=== PATIENT | female | born 1965 | race Caucasian/White ===

== ENCOUNTER 2025-05-17 16:00 | Inpatient (IN) | payer MEDICAID, SELFPAY ==
[2025-05-17] VITALS (12 sets, daily range): BP systolic 120–151; BP diastolic 90–102; PULSE 88–110; RESP 12–40; TEMP 36.2–38.6; O2SAT 80–98; BMI 26.5
--- NOTE | 2025-05-17 16:08 | PD.EDSOB ---
ED SOB =RME/HPI General Chief Complaint: Shortness of Breath/Dyspnea Stated Complaint: SOB Time Seen by Provider: 05/17/25 16:07 Arrival date/time: 05/17/25 16:00 RME / HPI RME / HPI Narrative: See [facility] for Dr. Gibson's HPI documentation. Related Data Home Medications ?Medication ?Instructions ?Recorded ?Confirmed aspirin 81 mg capsule 81 mg PO PRN 05/17/25 05/17/25 Previous Rx's ?Medication ?Instructions ?Recorded Cyclobenzaprine * (FLEXERIL *) 10 mg PO Q8HR PRN spasm #20 tabs 09/02/15 Hydrocodone/Acetaminophen * (NORCO 1 tab PO Q4H PRN pain #20 tabs 09/02/15 5/325 *) ibuprofen 600 mg tablet 600 mg PO Q6HR PRN PAIN #40 tabs 09/02/15 albuterol sulfate 90 mcg/actuation 2 puff inhalation QID PRN 02/10/21 aerosol inhaler shortness of breath or wheezing #8.5 grams fluticasone 100 mcg-salmeterol 50 1 inh inhalation BID #60 ea 02/10/21 mcg/dose blistr powdr for inhalation (Advair Diskus) Allergies Allergy/AdvReac Type Severity Reaction Status Date / Time codeine AdvReac Intermediate NAUSEATED Verified 02/10/21 10:22 NKA Allergy Uncoded 05/19/25 11:12 Review of Systems Review of Systems Systems Reviewed: All systems reviewed, normal except as documented Past Medical History Past Medical History NEUROLOGIC: Negative Neurological Disorders CARDIAC: Positive Hypertension; Negative Congestive Heart Failure RESPIRATORY: Positive Respiratory Disorders, Chronic Obstructive Pulmonary Disease (COPD), Asthma and Bronchitis GASTROINTESTINAL: Negative Gastrointestinal Disorders GENITOURINARY: Negative Renal Disease MUSCULOSKELETAL: Negative Musculoskeletal Disorders ENDOCRINE: Negative Diabetes Mellitus Type 1 or Diabetes Mellitus Type 2 PSYCHO/SOCIAL: Positive Recreational Drug Use Social History SMOKING STATUS: Heavy (> 1 pack/day) ED Exam Narrative Physical exam: See [facility] for Dr. Gibson's physical exam documentation. Course Course Course Narrative: CXR is ordered for determining the etiology of shortness of breath. Quality Measures none Orders Category Date Time Status Admit to Inpatient Status Routine Admission 05/17/25 17:39 Active Patient Condition Routine Admission 05/17/25 17:39 Ordered Bedside COVID-19 Antigen Test NOW Care 05/17/25 16:08 Completed Bedside Influenza A&B Antigen Test NOW Care 05/17/25 16:08 Completed COVID-19 Screening Questionnaire NOW Care 05/17/25 17:08 Completed Decision to Admit X1 Care 05/17/25 17:08 Completed EKG (ED ONLY) *Do not use* NOW Care 05/17/25 16:10 Completed Notify provider NEEDED Care 05/17/25 17:39 Active Saline [Insert IV] NOW Care 05/17/25 16:09 Active Straight [In and Out Catheter] X1 Care 05/17/25 16:09 Completed Referral Respiratory Therapy Stat Cons 05/17/25 16:09 Active EKG (ED Only) Stat Exams 05/17/25 16:10 Draft EKG (ED Only) Stat Exams 05/17/25 16:10 Draft XR chest 1V portable Stat Exams 05/17/25 16:10 Completed ABG [Arterial Blood Gas] Stat Lab 05/17/25 18:19 Completed BNP [B-Type Natriuretic Peptide] Stat Lab 05/17/25 16:12 Completed Bilirubin,Direct Stat Lab 05/17/25 16:12 Completed Blood Culture (Lab) Stat Lab 05/17/25 16:18 Results CBC Stat Lab 05/17/25 16:12 Completed CMP [Comprehensive Metabolic Panel] Stat Lab 05/17/25 16:12 Completed CRP [C-Reactive Protein] Stat Lab 05/17/25 16:12 Completed D-Dimer Stat Lab 05/17/25 16:12 Completed Drug Screen,Urine Routine Lab 05/17/25 17:15 Completed ESR [Sed Rate (ESR)] Stat Lab 05/17/25 16:12 Completed Hemoglobin A1C [Glycohemoglobin w (eAG)] Stat Lab 05/17/25 16:12 Completed Lactate (Lactic Acid) Stat Lab 05/17/25 16:12 Completed Magnesium Stat Lab 05/17/25 16:12 Completed Procalcitonin Stat Lab 05/17/25 16:12 Completed TSH [Thyroid Stimulating Hormone] Stat Lab 05/17/25 16:12 Completed Troponin I Stat Lab 05/17/25 16:12 Completed UA, C/S IF [Urinalysis, C/S if Indicated] Stat Lab 05/17/25 17:17 Completed DiphenhydrAMINE INJ [Benadryl Inj] Med 05/17/25 16:55 Discontinued 50 mg IVP X1 STA Levalbuterol Rt [Xopenex Rt Breanna] Med 05/17/25 17:30 Discontinued 10 mg INH X1 ONE Levalbuterol Rt [Xopenex Rt Breanna] Med 05/17/25 17:31 Discontinued 7.5 mg INH X1 ONE MethylPREDNISolone.* [SoluMEDROL Inj] Med 05/17/25 16:09 Discontinued 250 mg IVP X1 ONE Sodium Chloride Rt Breanna 0.9% [NS Rt Breanna 0.9%] Med 05/17/25 16:09 Discontinued 3 ml INH PRN PRN Sodium Chloride Rt Breanna 0.9% [NS Rt Breanna 0.9%] Med 05/17/25 17:31 Active 3 ml INH PRN PRN Code Status Routine Oth 05/17/25 17:39 Completed BiPAP / CPAP NOW RT 05/17/25 16:09 Active Vital Signs Vital signs: Vital Signs Temperature 100.3 F 05/17/25 16:28 Pulse Rate 110 H 05/17/25 16:28 Respiratory Rate 39 H 05/17/25 16:28 Blood Pressure 151/101 H 05/17/25 16:28 Pulse Oximetry (%) 93 L 05/17/25 16:28 Oxygen Delivery Method BiPAP 05/17/25 16:28 Shortness of Breath / Dyspnea MDM Narrative MDM Narrative:: This section includes all my notes and documentations, including HPI, PE, and ED course. Ralph Gibson MD HPI: 60-year-old female here with several days of worsening cough, productive cough, purulent sputum, and dyspnea. Was diagnosed with COPD. Continues to smoke. No oxygen or nebulizer at home. No other complaints. ROS: All negative except as documented in HPI. Physical Exam: General: Alert and oriented. In respiratory distress. Eyes: Conjunctivae and lids clear. ENT: No nasal congestion. Neck: Supple. Heart: Tachycardia with regular rhythm. Lungs: In respiratory distress. Severely decreased air movement with diffuse wheezing. Abdomen: Soft and nontender. Skin: Warm and dry. Neuro: Alert and oriented X 3. I reviewed all diagnostic test results: My interpretation of the EKG is: Sinus tachycardia (107 bpm) with nonspecific ST-T changes. My interpretation of the chest x-ray is NAD. Blood tests and urine tests remarkable for positive UDS for methamphetamine. ABG showed pH 7.39, pCO2 49, pHCO3 29. Covid/Influenza negative. At this point, diagnoses include: Acute respiratory failure with hypoxia and hypercapnia COPD exacerbation Methamphetamine use Treatment here included: Benadryl 50 mg IV Solu-Medrol 250 mg IV Xopenex neb treatments No significant improvement noted. I discussed the case with our hospitalist. About the presentation and exam and diagnostics and treatments here. And need of further care in the hospital. Will accept the patient. Ralph Gibson MD Patient data External records reviewed:: [facility] previous records (Per chart review, patient was seen here on 02/10/21 for COPD.) and EMS form Clinical information provided by:: patient Social determinants that could affect healthcare access:: none Patient has the following chronic illnesses:: COPD, asthma, HTN How is presenting disease/condition affected by chronic disease/condition?: exacerbated by Evaluation data The following diagnostics were reviewed and interpreted by me:: lab results, radiology exam(s) and EKG tracing(s) (My interpretation of the EKG is: Sinus tachycardia (107 bpm) with nonspecific ST-T changes. Ralph Gibson MD) Lab and/or radiology exams considered but not ordered:: none Interpretation Summary: I reviewed all diagnostic test results: My interpretation of the EKG is: Sinus tachycardia (107 bpm) with nonspecific ST-T changes. My interpretation of the chest x-ray is NAD. Blood tests and urine tests remarkable for positive UDS for methamphetamine. ABG showed pH 7.39, pCO2 49, pHCO3 29. Covid/Influenza negative. Medications / Prescriptions Medications or Prescriptions considered but not ordered:: none Medication administrations:: Medication Administration History Acetaminophen (Acetaminophen 325 Mg Tablet) 650 mg PO Q6H PRN PRN Reason: Fever >100 Stop: 06/16/25 17:59 Last Admin: 05/17/25 18:55 Dose: 650 mg Documented By: DARON Acetaminophen (Acetaminophen 325 Mg Tablet) 650 mg PO Q6H PRN PRN Reason: PAIN SCALE 1-3 (mild Stop: 06/16/25 17:59 Hydrocodone Bitart/Acetaminophen (Hydrocodone/Apap 5/325 Tablet) 1 tab PO Q4HR PRN PRN Reason: PAIN SCALE 4-6 (Moderate Stop: 05/22/25 17:59 Albuterol/Ipratropium (Albuterol/Ipratropium (Duoneb) Rt Breanna 3 Ml Nebu) 3 ml INH Q4HRRT ANNA Stop: 06/16/25 18:59 Last Admin: 05/19/25 23:16 Dose: 3 ml Documented By: Admin: 05/19/25 18:59 Dose: 3 ml Documented By: Admin: 05/19/25 14:06 Dose: 3 ml Documented By: Admin: 05/19/25 10:35 Dose: 3 ml Documented By: Admin: 05/19/25 06:30 Dose: 3 ml Documented By: Admin: 05/19/25 02:52 Dose: 3 ml Documented By: Admin: 05/18/25 22:46 Dose: 3 ml Documented By: Admin: 05/18/25 19:10 Dose: 3 ml Documented By: Admin: 05/18/25 15:16 Dose: 3 ml Documented By: Admin: 05/18/25 10:15 Dose: 3 ml Documented By: Admin: 05/18/25 06:50 Dose: 3 ml Documented By: Admin: 05/18/25 03:24 Dose: 3 ml Documented By: Admin: 05/17/25 22:23 Dose: 3 ml Documented By: Admin: 05/17/25 19:40 Dose: 3 ml Documented By: ALMAS Albuterol/Ipratropium (Albuterol/Ipratropium (Duoneb) Rt Breanna 3 Ml Nebu) 3 ml INH Q2HR PRN PRN Reason: SHORTNESS OF BREATH OR WHEEZE Stop: 06/16/25 18:12 Last Admin: 05/18/25 19:10 Dose: 3 ml Documented By: AMLAS Comments: computers down, scanner not working Atorvastatin Calcium (Atorvastatin Calcium 20 Mg Tablet) 40 mg PO HS ANNA Stop: 06/17/25 20:59 Last Admin: 05/19/25 22:40 Dose: Not Given Documented By: CP Non-Admin Reason: NPO Admin: 05/18/25 20:12 Dose: Not Given Documented By: CP Non-Admin Reason: NPO Dextrose (Dextrose 50%-Water Inj 50 Ml Syringe) 25 ml IV Q15MIN PRN PRN Reason: BG 50-70 responsive npo pt Stop: 06/17/25 12:50 Dextrose (Dextrose 50%-Water Inj 50 Ml Syringe) 50 ml IV Q15MIN PRN PRN Reason: BG <50 OR BG <70 & pt unresponsive Stop: 06/17/25 12:50 Gabapentin (Gabapentin 300 Mg Capsule) 300 mg PO TID ANNA Stop: 06/18/25 10:54 Last Admin: 05/19/25 22:40 Dose: Not Given Documented By: JAVAD Non-Admin Reason: NPO Admin: 05/19/25 11:12 Dose: 300 mg Documented By: JEMAL Glucagon (Glucagon Inj 1 Mg Vial) 1 mg IM Q15MIN PRN PRN Reason: BG <70, and no IV access Guaifenesin (Guaifenesin Syrup 200 Mg/10 Ml Udc) 100 mg PO BID [facility]; Protocol Stop: 06/16/25 20:59 Last Admin: 05/19/25 22:40 Dose: Not Given Documented By: JAVAD Non-Admin Reason: NPO Admin: 05/19/25 09:18 Dose: Not Given Documented By: JEMAL Non-Admin Reason: NPO Admin: 05/18/25 20:12 Dose: Not Given Documented By: JAVAD Non-Admin Reason: NPO Admin: 05/18/25 08:10 Dose: Not Given Documented By: RADHA Non-Admin Reason: Patient Refused Admin: 05/17/25 22:28 Dose: Not Given Documented By: CP Non-Admin Reason: Patient Refused Heparin Sodium (Porcine) (Heparin Sod Inj 5000 Unit/Ml Vial) 5,000 unit SC Q12HR ANNA Stop: 05/31/25 18:14 Last Admin: 05/19/25 22:39 Dose: 5,000 unit Documented By: JAVAD Co-signed By: VERO Admin: 05/19/25 09:18 Dose: 5,000 unit Documented By: JEMAL Co-signed By: MANUEL Admin: 05/18/25 20:00 Dose: 5,000 unit Documented By: JAVAD Co-signed By: NILE Admin: 05/18/25 08:09 Dose: 5,000 unit Documented By: RADHA Co-signed By: [email or web address] Admin: 05/17/25 18:56 Dose: 5,000 unit Documented By: FC Co-signed By: TM Azithromycin 500 mg/ Sodium (Chloride) 250 mls @ 250 mls/hr IV X1 ONE Stop: 05/20/25 09:59 Insulin Human Lispro (Insulin Lispro (Admelog) 1 Unit/0.01 Ml Unit) 0 unit SC Q6HR [facility]; Protocol Stop: 06/18/25 17:59 Last Admin: 05/19/25 18:26 Dose: Not Given Documented By: JEMAL Non-Admin Reason: Per Protocol Lorazepam (Lorazepam 2 Mg/Ml Vial) 1 mg IVP Q8HR PRN PRN Reason: ANXIETY Stop: 05/24/25 07:35 Methylprednisolone Sodium Succinate (Methylprednisolone Sod Succ 40 Mg/Ml Vial) 40 mg IVP TID [facility] Stop: 05/26/25 13:59 Last Admin: 05/19/25 22:39 Dose: 40 mg Documented By: Admin: 05/19/25 14:38 Dose: 40 mg Documented By: JEMAL Nicotine (Nicotine Patch 21 Mg/24 Hr Patch.Td24) 21 mg TOP QDAY [facility] Stop: 06/16/25 17:44 Last Admin: 05/19/25 09:18 Dose: 21 mg Documented By: Admin: 05/18/25 08:09 Dose: 21 mg Documented By: Admin: 05/17/25 18:56 Dose: 21 mg Documented By: DARON Ondansetron HCl (Ondansetron Inj 2 Mg/Ml Inj 2 Ml) 4 mg IVP Q6H PRN; Protocol PRN Reason: NAUSEA OR VOMITING Stop: 06/16/25 17:59 Pantoprazole Sodium (Pantoprazole Inj 40 Mg Vial) 40 mg IVP QDAY [facility] Stop: 06/17/25 08:59 Last Admin: 05/19/25 09:16 Dose: 40 mg Documented By: Admin: 05/18/25 08:09 Dose: 40 mg Documented By: RADHA Sodium Chloride (Sodium Chloride Rt Breanna 0.9% 3 Ml Nebu) 3 ml INH PRN PRN PRN Reason: SOLN Stop: 06/16/25 17:30 Last Admin: 05/17/25 17:59 Dose: 3 ml Documented By: [email or web address] Discontinued Medications Albuterol (Albuterol Rt 2.5 Mg/3 Ml Nebu) 10 mg INH X1 ONE Stop: 05/19/25 10:57 Last Admin: 05/19/25 11:39 Dose: 10 mg Documented By: BRITTNY Azithromycin (Azithromycin 250 Mg Tablet) 500 mg PO QDAY ANNA Stop: 05/19/25 09:01 Last Admin: 05/18/25 08:09 Dose: 500 mg Documented By: Admin: 05/17/25 18:55 Dose: 500 mg Documented By: DARON Olanzapine 10 mg/ Sterile (Water 2.1 ml) 0 mg IM QDAY ONE Stop: 05/18/25 21:05 Last Admin: 05/18/25 21:15 Dose: 1 dose Documented By: JAVAD Diphenhydramine HCl (Diphenhydramine Inj 50 Mg/Ml Vial) 50 mg IVP X1 STA Stop: 05/17/25 16:56 Last Admin: 05/17/25 17:05 Dose: 50 mg Documented By: DARON Fluticasone Propionate (Fluticasone [place] 0.05% 16 Gm Btl) 1 spray NASAL X1 ONE Stop: 05/18/25 19:36 Haloperidol Lactate (Haloperidol Lact Inj 5 Mg/Ml Vial) 1 mg IV X1 ONE Stop: 05/19/25 08:34 Last Admin: 05/19/25 09:10 Dose: 1 mg Documented By: JEMAL Hydroxyzine HCl (Hydroxyzine Inj 25 Mg/Ml Vial) 50 mg IM X1 ONE Stop: 05/18/25 19:36 Last Admin: 05/18/25 20:11 Dose: Not Given Documented By: JAVAD Non-Admin Reason: Medication Not Available Comments: aware and new orders received. Ceftriaxone Sodium/Dextrose (Rocephin/D5w 1gm Iv Premix) 1 gm in 50 mls @ 100 mls/hr IV QDAY ANNA Stop: 05/25/25 11:47 Last Admin: 05/18/25 11:53 Dose: Not Given Documented By: RADHA Non-Admin Reason: Discontinued Ceftriaxone Sodium/Dextrose (Rocephin/D5w 1gm Iv Premix) 1 gm in 50 mls @ 100 mls/hr IV QDAY ANNA Stop: 05/25/25 11:49 Last Admin: 05/19/25 09:18 Dose: 100 mls/hr Documented By: Infusion: 05/18/25 13:01 Dose: Infused Documented By: Admin: 05/18/25 12:31 Dose: 100 mls/hr Documented By: RADHA Magnesium Sulfate (Magnesium Sulfate Ivpb) 2 gm in 50 mls @ 120 mls/hr IV X1 ONE Stop: 05/18/25 17:49 Last Admin: 05/18/25 17:45 Dose: 120 mls/hr Documented By: RADHA Azithromycin 500 mg/ Sodium (Chloride) 250 mls @ 250 mls/hr IV X1 ONE Stop: 05/19/25 09:11 Last Admin: 05/19/25 10:27 Dose: 250 mls/hr Documented By: JEMAL Cefepime HCl 2 gm/ Sodium (Chloride) 50 mls @ 100 mls/hr IV Q8HR [facility] Stop: 05/26/25 11:04 Last Admin: 05/19/25 11:20 Dose: 100 mls/hr Documented By: JEMAL Magnesium Sulfate (Magnesium Sulfate Ivpb) 2 gm in 50 mls @ 25 mls/hr IV X1 ONE Stop: 05/19/25 13:01 Last Admin: 05/19/25 11:46 Dose: 25 mls/hr Documented By: JEMAL Vancomycin HCl 1,500 mg/ (Sodium Chloride) 500 mls @ 200 mls/hr IV X1 ONE Stop: 05/19/25 13:59 Last Admin: 05/19/25 12:27 Dose: 200 mls/hr Documented By: JEMAL Magnesium Sulfate/Dextrose (Magnesium Sulfate Ivpb) 1 gm in 100 mls @ 300 mls/hr IV X1 ONE Stop: 05/19/25 15:04 Last Admin: 05/19/25 14:55 Dose: 300 mls/hr Documented By: JEMAL Insulin Human Lispro (Insulin Lispro (Admelog) 1 Unit/0.01 Ml Unit) 0 unit SC AC [facility]; Protocol Stop: 06/17/25 16:59 Last Admin: 05/19/25 17:09 Dose: Not Given Documented By: JOSIES Non-Admin Reason: Per Protocol Admin: 05/19/25 11:53 Dose: Not Given Documented By: JOSIES Non-Admin Reason: Per Protocol Admin: 05/19/25 07:53 Dose: Not Given Documented By: JOSIES Non-Admin Reason: Per Protocol Admin: 05/18/25 17:16 Dose: Not Given Documented By: RADHA Non-Admin Reason: Per Protocol Ipratropium [place] (Ipratropium Rt 0.5 Mg/ 2.5 Ml Nebu) 1.5 mg INH X1 ONE Stop: 05/17/25 17:42 Last Admin: 05/17/25 17:58 Dose: 1.5 mg Documented By: ALMAS Ipratropium Pinnacle (Ipratropium Rt 0.5 Mg/ 2.5 Ml Nebu) 1.5 mg INH X1 ONE Stop: 05/18/25 16:13 Levalbuterol HCl (Levalbuterol Rt 1.25 Mg/0.5 Ml Nebu) 10 mg INH X1 ONE Stop: 05/17/25 17:31 Last Admin: 05/17/25 17:49 Dose: Not Given Documented By: DARON Non-Admin Reason: Discontinued Levalbuterol HCl (Levalbuterol Rt 1.25 Mg/0.5 Ml Nebu) 7.5 mg INH X1 ONE Stop: 05/17/25 17:32 Last Admin: 05/17/25 17:49 Dose: Not Given Documented By: DARON Non-Admin Reason: Discontinued Lorazepam (Lorazepam 2 Mg/Ml Vial) 0.5 mg IVP X1 ONE Stop: 05/18/25 19:51 Last Admin: 05/18/25 19:56 Dose: 0.5 mg Documented By: JAVAD Lorazepam (Lorazepam 2 Mg/Ml Vial) 1 mg IVP X1 ONE Stop: 05/18/25 21:05 Last Admin: 05/18/25 21:15 Dose: 1 mg Documented By: JAVAD Lorazepam (Lorazepam 2 Mg/Ml Vial) 0.5 mg IVP X1 ONE Stop: 05/19/25 02:20 Last Admin: 05/19/25 02:28 Dose: 0.5 mg Documented By: JAVAD Lorazepam (Lorazepam 2 Mg/Ml Vial) 0.5 mg IVP Q8HR PRN PRN Reason: ANXIETY Stop: 05/24/25 07:35 Last Admin: 05/19/25 07:44 Dose: 0.5 mg Documented By: JEMAL Lorazepam (Lorazepam 2 Mg/Ml Vial) 1 mg IVP X1 ONE Stop: 05/19/25 10:54 Last Admin: 05/19/25 11:12 Dose: 1 mg Documented By: JEMAL Methylprednisolone Sodium Succinate (Methylprednisolone Sod Succ 62.5 Mg/Ml 2ml Vial) 250 mg IVP X1 ONE Stop: 05/17/25 16:10 Last Admin: 05/17/25 17:05 Dose: 250 mg Documented By: DARON Methylprednisolone Sodium Succinate (Methylprednisolone Sod Succ 40 Mg/Ml Vial) 40 mg IVP QDAY [facility] Stop: 05/22/25 08:59 Last Admin: 05/18/25 08:08 Dose: 40 mg Documented By: RADHA Methylprednisolone Sodium Succinate (Methylprednisolone Sod Succ 40 Mg/Ml Vial) 40 mg IVP BID [facility] Stop: 05/25/25 16:29 Last Admin: 05/19/25 09:17 Dose: 40 mg Documented By: Admin: 05/18/25 20:00 Dose: 40 mg Documented By: Admin: 05/18/25 17:17 Dose: 40 mg Documented By: RADHA Pharmacy Consult (Vancomycin Pharmacy To Dose 1 Each Each) 1 each IV QDAY [facility] Stop: 06/18/25 10:59 Last Admin: 05/19/25 12:27 Dose: 1 each Documented By: JEMAL Fluticasone/Salmeterol (Fluticasone/Salmeterol 100/50 14 Dose Inh) 1 puff INH BIDRT [facility] Stop: 06/16/25 18:59 Last Admin: 05/18/25 19:12 Dose: 1 puff Documented By: Admin: 05/18/25 06:49 Dose: 1 puff Documented By: Admin: 05/17/25 19:38 Dose: 1 puff Documented By: ALMAS Comments: 100/50 Sodium Chloride (Sodium Chloride Rt Breanna 0.9% 3 Ml Nebu) 3 ml INH PRN PRN PRN Reason: SOLN Stop: 06/16/25 16:08 Sodium Chloride (Sodium Chloride Rt 10% 15 Ml Nebu) 5 ml INH X1 ONE Stop: 05/17/25 19:25 Sodium Chloride (Sodium Chloride Rt 10% 15 Ml Nebu) 5 ml INH X1 ONE Stop: 05/19/25 08:15 Last Admin: 05/19/25 11:32 Dose: Not Given Documented By: BRITTNY Non-Admin Reason: Change of Condition Comments: pt on bipap unable to induce Treatment here FROM ME included: Benadryl 50 mg IV Solu-Medrol 250 mg IV Xopenex neb treatments Consultations Consultation(s) initiated? (list below): Yes Consultation #1 (Physician, Specialty, Details): I discussed the case with our hospitalist. About the presentation and exam and diagnostics and treatments here. And need of further care in the hospital. Will accept the patient. Diagnosis Shortness of Breath Differential Diagnosis: acute exacerbation of chronic obstructive airways disease, congestive heart failure, community acquired pneumonia, asthma with exacerbation and pulmonary embolism Most likely diagnosis given after review of the tests above:: Acute respiratory failure with hypoxia COPD exacerbation Methamphetamine use Admission Indicated Admission indicated?: indicated Explain why admission is indicated or not indicated:: Acute respiratory failure with hypoxia COPD exacerbation Admission Request Was there a request for admission?: Yes Admission Attestation Admission request attestation: Discussed case with Hospitalist service regarding admission. Discussed patients ED course, exam findings, labs, and radiology results. Agreed to accept the patient for admission. Disposition Plan Disposition Plan: Admit Discharge Plan Plan Patient Disposition: Admit Acute Care w/in Hospital Problem List Clinical Impression: Acute respiratory failure with hypoxia, COPD exacerbation
--- NOTE | 2025-05-17 16:10 | EKG_ITS ---
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
--- NOTE | 2025-05-17 16:10 | XR_ITS ---
EXAMINATION: AP chest single view TECHNIQUE: AP portable upright chest single view Date and time: May 17, 2025, 1611 hours INDICATION: Shortness of breath today. FINDINGS: Normal heart size Left cardiac apex fat pad No interval pneumonia or pulmonary edema Moderate osteopenia IMPRESSION: No interval pneumonia or pulmonary edema
--- NOTE | 2025-05-17 16:10 | EKG_ITS ---
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
[2025-05-17 16:26] LABS: Lactate (Lactic Acid) 1.5 mMol/L (0.4-2.0)
[2025-05-17 16:29] LABS: Basophils # (Auto) 0.1 Thou/mm3 (0.0-0.2); Basophils % (Auto) 1 % (0-2.5); Eosinophils # (Auto) 0.0 Thou/mm3 (0.0-0.5); Eosinophils % (Auto) 0 % (0-10); Hematocrit 49.8 % (36.0-46.0); Hemoglobin 15.8 g/dL (12.0-16.0); Immature Granulocytes Auto 0.02 Thou/mm3 (0.00-0.00); Lymphocytes # (Auto) 0.8 Thou/mm3 (1.0-4.8); Lymphocytes % (Auto) 10 % (10-50); Mean Corpuscular HGB Conc 31.7 g/dl (31.0-37.0); Mean Corpuscular Hemoglobin 26.6 pg (25.0-35.0); Mean Corpuscular Volume 84 fL (80-100); Monocytes # (Auto) 1.1 Thou/mm3 (0.0-0.8); Monocytes % (Auto) 14 % (0-12); Neutrophils # (Auto) 5.7 Thou/mm3 (1.8-7.7); Neutrophils % (Auto) 74 % (37-80); Nucleated Red Blood Cell # 0.00 Thou/mm3 (0.00-0.00); Nucleated Red Blood Cell % 0 /100 WBC (0); Platelet Count 280 Thou/mm3 (140-440); RDW Standard Deviation 39.9 fL (36.4-46.3); Red Blood Count 5.95 Miln/mm3 (4.00-5.20); White Blood Count 7.7 Thou/mm3 (3.6-11.0)
[2025-05-17 16:41] LABS: Sed Rate (ESR) 29 mm/hr (0-30)
[2025-05-17 16:57] LABS: Alanine Aminotransferase 56 U/L (10-49); Albumin, Serum 4.7 gm/dL (3.4-4.8); Albumin/Globulin Ratio 1.9 (1.2-2.2); Alkaline Phosphatase 98 U/L (46-116); Anion Gap 7 (7-16); Aspartate Amino Transferase 40 U/L (0-34); BUN/Creatinine Ratio 9 Ratio (12-20); Bilirubin,Direct 0.1 mg/dL (0.0-0.3); Bilirubin,Total 0.4 mg/dL (0.3-1.2); Blood Urea Nitrogen 7 mg/dL (9-23); C-Reactive Protein 4.7 mg/dL (0.0-0.9); Calcium 8.9 mg/dL (8.3-10.6); Calcium (Corrected) 8.9 mg/dL (8.5-10.1); Carbon Dioxide 29.2 mMol/L (20.0-31.0); Chloride 104 mMol/L (98-107); Creatinine (Component) 0.8 mg/dL (0.6-1.3); Estimated Creatinine Clearance 65.7 mL/min (>60); Globulin 2.5 gm/dL (2.3-3.5); Glucose 158 mg/dL (74-106); Glucose Estimated Average 131 mg/dL (80-131); Hemoglobin A1C 6.2 % Hgb (4.8-6.0); Magnesium 2.4 mg/dL (1.6-2.6); Osmolality,Calculated 280 (275-295); Potassium 4.0 mMol/L (3.4-5.1); Procalcitonin 0.24 ng/ml (0.0-0.49); Sodium 140 mMol/L (136-145); Thyroid Stimulating Hormone 4.77 uIU/mL (0.55-4.78); Total Protein 7.2 gm/dL (5.7-8.2); Troponin I < 0.020 ng/mL (0.0-0.045); eGFR > 60 See Note
[2025-05-17 17:00] LABS: D-Dimer 277 ng/mL (<600)
[2025-05-17] MEDS: MethylPREDNISolone SOD SUCC 62.5 MG/ML 2ML VIAL 250 MG IVP (17:05)
[2025-05-17 17:20] LABS: B-Type Natriuretic Peptide 46 pg/mL (0-100)
[2025-05-17 17:29] LABS: Collection Type, Urine Clean Catch
[2025-05-17 17:45] LABS: Bilirubin,Urine Negative (Negative); Blood,Urine Negative (Negative); Clarity,Urine Clear (Clear/Hazy); Color,Urine Yellow (Lt Yel-Yel); Culture Indicated,Urine Not Indicated; Glucose, Urine Negative (Negative); Ketones,Urine Negative (Negative); Leukocyte Esterase,Urine Negative (Negative); Nitrite,Urine Negative (Negative); PH,Urine 5.5 (5.0-7.0); Protein,Urine 1+ (Neg - Trace); RBC,Urine 1 /hpf (0-3); Specific Gravity,Urine 1.033 (1.001-1.035); Squamous Epithelial Cell,Urine 2 /hpf (0-5); Urobilinogen,Urine 3.0 mg/dL (0.0-1.0); WBC,Urine 1 /hpf (0-5)
[2025-05-17] MEDS: IPRATROPIUM RT 0.5 MG/ 2.5 ML NEBU 1.5 MG INH (17:58)
[2025-05-17] MEDS: SODIUM CHLORIDE RT SOL 0.9% 3 ML NEBU INH (17:59)
[2025-05-17 18:03] LABS: Amphetamine/Methamp Scrn,U Positive (Negative); Barbiturate Screen,Urine Negative (Negative); Benzodiazepines Screen,Urine Negative (Negative); Benzoylecgonine Screen, Ur Negative (Negative); Fentanyl Screen,Urine Negative (Negative); Opiate Screen,Urine Negative (Negative); THC Screen,Urine Negative (Negative)
--- NOTE | 2025-05-17 18:15 | ESHP_ITS ---
<Statement entered by Jhonny Anderson MD - 05/17/25 19:30> I saw and examined patient personally and supervised PGY 1 resident, Dr. Buckley with formulating a management plan. I agree with the documentation with the exceptions as listed below. 60-year-old female with PMHx of COPD, chronic bronchitis, active smoker 1ppd for >40y, methamphetamine use presented to the ED for evaluation of worsening cough and SOB for two days. Admitted for COPD exacerbation Problem list: 1. Acute resp failure with hypoxia secondary to COPD exacerbation 2. Transaminitis 3. History of methamphetamine use 4. Chronic nicotine dependence Patient presented today with worsening shortness of breath for the past few days. She attributes this to her dogs and smoking. Also her family recently visited her all of whom exhibited flulike symptoms. En route to the hospital patient received 2 g magnesium sulfate in the ambulance. Currently patient is on DuoNebs and BiPAP. Pending ABG results. Also placed nicotine patch for chronic nicotine dependence. Plan of care discussed with Attending Dr. Edna Anderson MD PGY 2 Disclaimer: This note was dictated by speech recognition. Minor errors in database software technician may be present due to voice recognition software. Documentation for date of: 05/17/25 HPI History of Present Illness History of present illness: HPI: 60-year-old female with PMHx of COPD, chronic bronchitis, active smoker 1ppd for >40y, methamphetamine use presented to the ED for evaluation of worsening cough and SOB for two days. Patient currently using BiPAP, and history is obtained from son at bedside primarily. He states that his mother earned the cough from her granddaughter when visiting his family two days ago. The cough is productive of yellow/green sputum and is much worse at night. Admits to HOGUE, and fevers, while denies chest pain, palpitations, N/V/D. Patient has exertional dyspnea at baseline and can walk short distances. However, with the onset of recurrent respiratory distress, she has been unable to ambulate herself to the point of urinary incontinence. ED Course: At arrival, VSS BP 151/101, HR 110, RR 39, T1 100.3, O2 93% on BiPAP 30%. Labs showed Hgb 15.8, WBC 7.7, bicarb 29.2, AG 7, BUN 7, CR 0.8, glucose 158, Hgb A1c 6.2, AST 40, ALT 56, CRP 4.7, BNP 46, Pro-Paul 0.24, TSH 4.77 UA negative. UDS positive for amphetamines. CXR no interval pneumonia or pulmonary edema. EKG sinus tachycardia In the ED, patient received diphenhydramine IVP 50 mg, methylprednisolone IVP 250 mg x 1, Ipratroprium 1.5mg x1 Meds: pending med reconcilation Allergy: None PMHx: [see HPI above]. PSHx: [none] Fam Hx: [non-contributory] Soc Hx: Patient has smoked for more than 1PPD for >40 years. [Denies drinking alcohol]. Admits to using methamphetamine daily Exam Vital Signs Temp Pulse Resp BP Pulse Ox O2 Del Method FiO2 101.5 F H 105 H 26 H 149/102 H 98 BiPAP 30 05/17/25 18:04 05/17/25 18:04 05/17/25 18:04 05/17/25 18:04 05/17/25 18:04 05/17/25 16:28 05/17/25 18:00 Narrative Exam General: Alert and oriented x3, No apparent distress. Skin: Intact, Warm, no rashes. HEENT: Normocephalic, Atraumatic. Normal neck range of motion, Supple. Trachea midline. Respiratory: Bronchial breath sounds b/l. Breath sounds are equal bilaterally with good, symmetric chest expansion. Cardiovascular: tachycardia, regular rhythm. normal S1, S2, No murmurs. Distal pulses 2+ Abdomen: Abdomen non-distended, without erythema, or lesions. Normotensive bowel sounds x4. Percussion tympanic. Palpation soft, nontender in all four quadrants. No organomagely. Absent rigidity, guarding, or rebound. Musculoskeletal/Extremities: No erythema, swelling, tenderness of any joints. No edema of BLE. DP pulses +2/3 b/l. Full active ROM of all four extremities. Neurologic: NEURO: Oriented x3, cranial nerves II to XII grossly intact. Muscle strength 5/5 on UE and LE b/l, Moves extremities x4. Sensation intact to gross touch along C6-T1 and L2-S1 dermatomes. No focal neurologic deficits noted Psych: Thoughts linear and responses appropriate. Results: Labs 05/18/25 04:48 05/18/25 04:48 Labs: Short CBC 05/17/25 Range/Units 16:12 WBC 7.7 (3.6-11.0) Thou/mm3 Hgb 15.8 (12.0-16.0) g/dL Hct 49.8 H (36.0-46.0) % Plt Count 280 (140-440) Thou/mm3 BMP 05/17/25 16:12 Sodium 140 Potassium 4.0 Chloride 104 Carbon Dioxide 29.2 BUN 7 L Creatinine 0.8 Glucose 158 H Calcium 8.9 Cardiac Enzymes 05/17/25 Range/Units 16:12 Troponin I < 0.020 (0.0-0.045) ng/mL Liver Function 05/17/25 Range/Units 16:12 Total Bilirubin 0.4 (0.3-1.2) mg/dL Direct Bilirubin 0.1 (0.0-0.3) mg/dL AST 40 H (0-34) U/L ALT 56 H (10-49) U/L Alkaline Phosphatase 98 (46-116) U/L Albumin 4.7 (3.4-4.8) gm/dL Urine 05/17/25 Range/Units 17:17 Urine Color Yellow (Lt Yel-Yel) Urine Clarity Clear (Clear/Hazy) Urine pH 5.5 (5.0-7.0) Ur Specific [place] 1.033 (1.001-1.035) Urine Protein 1+ A (Neg - Trace) Urine Glucose (UA) Negative (Negative) Quality Measures Quality Measures VTE prophylaxis Medications Home Medications and Allergies Home Medications ?Medication ?Instructions ?Recorded ?Confirmed ?Type aspirin 81 mg capsule 81 mg PO PRN 05/17/25 History Allergies Allergy/AdvReac Type Severity Reaction Status Date / Time codeine AdvReac Intermediate NAUSEATED Verified 02/10/21 10:22 Visit Medications Acetaminophen (Acetaminophen 325 Mg Tablet) 650 mg PO Q6H PRN PRN Reason: Fever >100 Stop: 06/16/25 17:59 Acetaminophen (Acetaminophen 325 Mg Tablet) 650 mg PO Q6H PRN PRN Reason: PAIN SCALE 1-3 (mild Stop: 06/16/25 17:59 Hydrocodone Bitart/Acetaminophen (Hydrocodone/Apap 5/325 Tablet) 1 tab PO Q4HR PRN PRN Reason: PAIN SCALE 4-6 (Moderate Stop: 05/22/25 17:59 Heparin Sodium (Porcine) (Heparin Sod Inj 5000 Unit/Ml Vial) 5,000 unit SC Q12HR [facility] Stop: 05/31/25 18:14 Nicotine (Nicotine Patch 21 Mg/24 Hr Patch.Td24) 21 mg TOP QDAY [facility] Stop: 06/16/25 17:44 Ondansetron HCl (Ondansetron Inj 2 Mg/Ml Inj 2 Ml) 4 mg IVP Q6H PRN; Protocol PRN Reason: NAUSEA OR VOMITING Stop: 06/16/25 17:59 Fluticasone/Salmeterol (Fluticasone/Salmeterol 100/50 14 Dose Inh) 1 puff INH BIDRT [facility] Stop: 06/16/25 18:59 Sodium Chloride (Sodium Chloride Rt [place] 0.9% 3 Ml Nebu) 3 ml INH PRN PRN PRN Reason: SOLN Stop: 06/16/25 16:08 Sodium Chloride (Sodium Chloride Rt [place] 0.9% 3 Ml Nebu) 3 ml INH PRN PRN PRN Reason: SOLN Stop: 06/16/25 17:30 Last Admin: 05/17/25 17:59 Dose: 3 ml Discontinued Medications Diphenhydramine HCl (Diphenhydramine Inj 50 Mg/Ml Vial) 50 mg IVP X1 STA Stop: 05/17/25 16:56 Last Admin: 05/17/25 17:05 Dose: 50 mg Ipratropium [place] (Ipratropium Rt 0.5 Mg/ 2.5 Ml Nebu) 1.5 mg INH X1 ONE Stop: 05/17/25 17:42 Last Admin: 05/17/25 17:58 Dose: 1.5 mg Levalbuterol HCl (Levalbuterol Rt 1.25 Mg/0.5 Ml Nebu) 10 mg INH X1 ONE Stop: 05/17/25 17:31 Last Admin: 05/17/25 17:49 Dose: Not Given Levalbuterol HCl (Levalbuterol Rt 1.25 Mg/0.5 Ml Nebu) 7.5 mg INH X1 ONE Stop: 05/17/25 17:32 Last Admin: 05/17/25 17:49 Dose: Not Given Methylprednisolone Sodium Succinate (Methylprednisolone Sod Succ 62.5 Mg/Ml 2ml Vial) 250 mg IVP X1 ONE Stop: 05/17/25 16:10 Last Admin: 05/17/25 17:05 Dose: 250 mg Assessment & Plan Plan 60-year-old female with PMHx of COPD, chronic bronchitis, active smoker 1ppd for >40y, methamphetamine use presented to the ED for evaluation of worsening cough and SOB for two days. Admitted for COPD exacerbation #Acute Hypoxic Respiratory Failure #COPD exacerbation Patient presented with 2d hx of worsening cough and SOB. Also admits to greenish phlegm with coughing worse at nights. In ED, patient received methylprednisolone 250mg x1, ipratropium 1.5mg inh, ABG: pH 7.39, pCO2 49, pO2 149, bicarb 29, O2 sat 100% CXR: no interval pneumonia or pulmonary edema EKG: sinus tachycardia Plan: - Duonebs Q4h scheduled, plus Q2h PRN SOB - Methylprednisolone 125mg x1, followed by 40mg QD +Pantoprazole IV 40mg QD for PPx GI ulcer 2/2 steroids - Guaifenecin PO 100mg bid, ordered without dextromethorphan to sustain tussive reflex beneficial for airway clearance. - Azithromycin 500mg for three days (05/17-) - Bedside COVID-19 and flu tests ordered - MRSA nasal screen ordered - Sputum ctx and Gram stain ordered - Chest physiotherapy daily - Continuous pulse oximetry - Oxygen delivery [4L] via NC PRN, titrate to maintain O2 sat >88% - Admitted to Telemetry #Transaminitis -CTM LFT's #Prediabetes Hgb A1c 6.2 -CTM AM glc #Substance Use Disorder #Chronic Smoker Patient reports to have smoked 1 PPD >40y. Also reports daily methamphetamine use. Plan: -Nicotine patch 21mg -Counseling for cessation smoking and drug use -Referral to social science research assistant Health Maintenance: Disposition: Telemetry Diet: Regular PPx DVT: Heparin SC 5000u BID PPx GI: Pantoprazole IV 40mg Qday Code Status: Routine This case was discussed with my attending physician, Dr. Bishop, and senior resident, Dr Anderson. Even though this this note was carefully revised there may still be minor errors in database software technician due to voice recognition software. Amrit Buckley, PGY I Attending Provider Attestation/Addendum I have seen and examined the patient. I was physically present for the vega portions of the services provided including history, physical exam, diagnosis, treatment plans and orders. I agree with assessment and plan of care as documented by residents. After examination of the patient and review of the clinical data I feel that this patient needs admission to the hospital for further treatment/evaluation. Even though this this note was carefully revised there may still be minor errors in database software technician due to voice recognition software. Angie Bishop MD
[2025-05-17 18:26] LABS: Allen Test Performed/OK; Base Excess 3 (-3-3); HCO3 29 mEq/L (20-26); Inspired Oxygen, FIO2 21 %; O2 Saturation 100 % (91-98); PCO2 49 mmHg (32.0-48.0); PO2 149 mmHg (83-108); Puncture Site Right Radial; pH, Arterial 7.39 (7.35-7.45)
[2025-05-17 18:52] LABS: Troponin I < 0.020 ng/mL (0.0-0.045)
[2025-05-17] MEDS: ACETAMINOPHEN 325 MG TABLET 650 MG PO (18:55)
[2025-05-17] MEDS: AZITHROMYCIN 250 MG TABLET 500 MG PO (18:55)
[2025-05-17] MEDS: HEPARIN SOD INJ 5000 UNIT/ML VIAL SC (18:56)
[2025-05-17] MEDS: NICOTINE PATCH 21 MG/24 HR PATCH.TD24 TOP (18:56)
[2025-05-17] MEDS: FLUTICASONE/SALMETEROL 100/50 14 DOSE INH 1 PUFF INH (19:38)
[2025-05-17] MEDS: ALBUTEROL/IPRATROPIUM (Duoneb) RT SOL 3 ML NEBU INH ×2 (19:40→22:23)
[2025-05-18] VITALS (17 sets, daily range): BP systolic 110–163; BP diastolic 61–119; PULSE 81–116; RESP 12–37; TEMP 35.6–36.5; O2SAT 88–100; BMI 30.2
[2025-05-18] MEDS: ALBUTEROL/IPRATROPIUM (Duoneb) RT SOL 3 ML NEBU INH ×7 (03:24→22:46)
[2025-05-18 06:11] LABS: Basophils # (Auto) 0.0 Thou/mm3 (0.0-0.2); Basophils % (Auto) 0 % (0-2.5); Eosinophils # (Auto) 0.0 Thou/mm3 (0.0-0.5); Eosinophils % (Auto) 0 % (0-10); Hematocrit 50.4 % (36.0-46.0); Hemoglobin 15.7 g/dL (12.0-16.0); Immature Granulocytes Auto 0.03 Thou/mm3 (0.00-0.00); Lymphocytes # (Auto) 0.5 Thou/mm3 (1.0-4.8); Lymphocytes % (Auto) 6 % (10-50); Mean Corpuscular HGB Conc 31.2 g/dl (31.0-37.0); Mean Corpuscular Hemoglobin 26.7 pg (25.0-35.0); Mean Corpuscular Volume 86 fL (80-100); Monocytes # (Auto) 0.3 Thou/mm3 (0.0-0.8); Monocytes % (Auto) 4 % (0-12); Neutrophils # (Auto) 7.2 Thou/mm3 (1.8-7.7); Neutrophils % (Auto) 90 % (37-80); Nucleated Red Blood Cell # 0.00 Thou/mm3 (0.00-0.00); Nucleated Red Blood Cell % 0 /100 WBC (0); Platelet Count 256 Thou/mm3 (140-440); RDW Standard Deviation 41.7 fL (36.4-46.3); Red Blood Count 5.88 Miln/mm3 (4.00-5.20); White Blood Count 8.0 Thou/mm3 (3.6-11.0)
[2025-05-18] MEDS: FLUTICASONE/SALMETEROL 100/50 14 DOSE INH 1 PUFF INH ×2 (06:49→19:12)
[2025-05-18 08:02] LABS: Alanine Aminotransferase 60 U/L (10-49); Albumin, Serum 5.1 gm/dL (3.4-4.8); Albumin/Globulin Ratio 1.9 (1.2-2.2); Alkaline Phosphatase 101 U/L (46-116); Anion Gap 13 (7-16); Aspartate Amino Transferase 37 U/L (0-34); BUN/Creatinine Ratio 12 Ratio (12-20); Bilirubin,Total 0.3 mg/dL (0.3-1.2); Blood Urea Nitrogen 11 mg/dL (9-23); Calcium 9.5 mg/dL (8.3-10.6); Calcium (Corrected) 9.5 mg/dL (8.5-10.1); Carbon Dioxide 27.7 mMol/L (20.0-31.0); Cardiac Risk Estimate 7.2 RATIO (3.7-5.6); Chloride 101 mMol/L (98-107); Cholesterol 252 mg/dL (132-200); Creatinine (Component) 0.9 mg/dL (0.6-1.3); Estimated Creatinine Clearance 62.3 mL/min (>60); Globulin 2.7 gm/dL (2.3-3.5); Glucose 196 mg/dL (74-106); HDL Cholesterol 35 mg/dL (40-60); LDL Cholesterol,Calculated 187 mg/dL (0-130); Magnesium 2.3 mg/dL (1.6-2.6); Osmolality,Calculated 287 (275-295); Phosphorous 4.0 mg/dL (2.4-5.1); Potassium 4.1 mMol/L (3.4-5.1); Sodium 142 mMol/L (136-145); Total Protein 7.8 gm/dL (5.7-8.2); Triglycerides 149 mg/dL (30-150); eGFR > 60 See Note
[2025-05-18] MEDS: AZITHROMYCIN 250 MG TABLET 500 MG PO (08:09)
[2025-05-18] MEDS: HEPARIN SOD INJ 5000 UNIT/ML VIAL SC ×2 (08:09→20:00)
[2025-05-18] MEDS: NICOTINE PATCH 21 MG/24 HR PATCH.TD24 TOP (08:09)
[2025-05-18 09:34] LABS: Base Excess 2 (-3-3); HCO3 30 mEq/L (20-26); Inspired Oxygen, FIO2 21 %; O2 Saturation 96 % (91-98); PCO2 58 mmHg (32.0-48.0); PO2 82 mmHg (83-108); pH, Arterial 7.32 (7.35-7.45)
[2025-05-18 09:41] LABS: Allen Test Performed/OK; Puncture Site Right Radial
[2025-05-18 11:10] LABS: Thyroid Stimulating Hormone 0.97 uIU/mL (0.55-4.78)
--- NOTE | 2025-05-18 11:54 | XR_ITS ---
Examination: Abdomen sonogram, Limited Date and time of exam: May 18, 2025, 1240 hours INDICATIONS: Elevated liver enzymes on laboratory examination today Technique: Real-time rico scale transabdominal sonographic images of the upper abdomen obtained. Findings: 14 mm stone in the gallbladder neck Normal gallbladder wall Normal common bile duct Pancreatic head 3.8 cm Liver 17.4 cm fatty infiltration lobular contour Normal hepatopetal portal venous flow Patent IVC IMPRESSION: Cholelithiasis, negative for cholecystitis
[2025-05-18] MEDS: cefTRIAXone/D5w 1gm IV premix 1 GM/50 ML BAG IV (12:31)
--- NOTE | 2025-05-18 14:21 | PC.SS ---
Nydia Cannon is a 60-year-old female admitted to Med Surg for AHRF 2/2 COPD Exacerbation. SS conducted bedside contact with the patient to complete initial assessment and to discuss discharge planning. Role and reason explained. Patient confirmed demographic information. Patient identifies Rito Cannon [phone] as her surrogate decision maker. Pt states she is able to complete all ADL?s independently. No need for any source of DME. Pts is in between PCPs at this time but plans on seeing Dr. North. Pharmacy of choice is [email or web address]. Discharge options discussed and the pt wishes to return home.? Family will provide transportation upon DC. No further intervention required at this time, social services assistant would be available to address any further concerns. DC Plan: Home Contact: SonRito Address: Confirmed on face sheet PCP: Can
--- NOTE | 2025-05-18 14:49 | ESPR_ITS ---
<Statement entered by Jhonny Anderson MD - 05/18/25 15:29> I saw and examined patient personally and supervised PGY 1 resident, Dr. Buckley with formulating a management plan. I agree with the documentation with the exceptions as listed below. This a.m. patient was tachypneic in the 20s and she was placed back on BiPAP. ABG showed pH 7.32, pCO2 58, bicarb 27.7. Upon reassessment patient was noted to have 100% leak on the BiPAP and RT was contacted to readjust the mask. A repeat ABG was ordered for 14:00. Also started patient on Rocephin 1 g IV daily and order liver ultrasound. Plan of care discussed with Attending Dr. Edna Anderson MD PGY 2 Disclaimer: This note was dictated by speech recognition. Minor errors in rivet hole puncher may be present due to voice recognition software. Documentation for date of: 05/18/25 Subjective Subjective Interval history: Patient was seen and examined at bedside. No acute events took place overnight.? patient states that she was never prescribed any medication she needed before.? She is not on supplemental oxygen at home.? According to nurse, while patient maintained oxygen saturations on oxy mask at night, she showed increased work of breathing, abdominal breathing, and was placed on BiPAP at 3 AM.? Unfortunately despite frequent attempts lasting seal between the mask and face could not be established and on repeat ABG studies, pCO2 kept creeping upward. VSS 88% on BiPAP at 7AM CBC Hgb 15.7 ur, CMP glc 196 Ch 252 H, LDL 187 H, HDL 35, Exam Vital Signs Temp Pulse Resp BP Pulse Ox O2 Del Method O2 Flow Rate 96.0 F L 89 28 H 137/99 H 99 BiPAP 7 05/18/25 11:30 05/18/25 12:00 05/18/25 11:30 05/18/25 11:30 05/18/25 11:30 05/18/25 11:30 05/18/25 03:29 FiO2 35 05/18/25 10:30 Narrative Exam General: Alert and oriented x3, No apparent distress. Skin: Intact, Warm, no rashes. HEENT: Normocephalic, Atraumatic. Normal neck range of motion, Supple. Trachea midline. Respiratory: Bronchial breath sounds b/l. Breath sounds are equal bilaterally with good, symmetric chest expansion. Cardiovascular: tachycardia, regular rhythm. normal S1, S2, No murmurs. Distal pulses 2+ Abdomen: Abdomen non-distended, without erythema, or lesions. Normotensive bowel sounds x4. Percussion tympanic. Palpation soft, nontender in all four quadrants. No organomagely. Absent rigidity, guarding, or rebound. Musculoskeletal/Extremities: No erythema, swelling, tenderness of any joints. No edema of BLE. DP pulses +2/3 b/l. Full active ROM of all four extremities. Neurologic: NEURO: Oriented x3, cranial nerves II to XII grossly intact. Muscle strength 5/5 on UE and LE b/l, Moves extremities x4. Sensation intact to gross touch along C6-T1 and L2-S1 dermatomes. No focal neurologic deficits noted Psych: Thoughts linear and responses appropriate. Objective Labs 05/18/25 04:48 05/18/25 04:48 Labs: Laboratory Results - last 24 hr 05/17/25 05/17/25 05/17/25 16:12 17:15 17:17 WBC 7.7 RBC 5.95 H Hgb 15.8 Hct 49.8 H MCV 84 MCH 26.6 MCHC 31.7 RDW Std Deviation 39.9 Plt Count 280 Neut % (Auto) 74 Lymph % (Auto) 10 Emanuel % (Auto) 14 H Eos % (Auto) 0 Baso % (Auto) 1 Neut # (Auto) 5.7 Lymph # (Auto) 0.8 L Emanuel # (Auto) 1.1 H Eos # (Auto) 0.0 Baso # (Auto) 0.1 Immature Gran # (Auto) 0.02 H Absolute Nucleated RBC 0.00 Immature Gran % 0 Nucleated RBC % 0 ESR 29 D-Dimer 277 Puncture Site ABG pH ABG pCO2 ABG pO2 ABG HCO3 ABG O2 Saturation ABG Base Excess FiO2 Sodium 140 Potassium 4.0 Chloride 104 Carbon Dioxide 29.2 Anion Gap 7 BUN 7 L Creatinine 0.8 Estim Creat Clear Calc 65.7 eGFR > 60 BUN/Creatinine Ratio 9 L Glucose [address] Glu mg/dL 131 Hemoglobin A1c 6.2 H Calculated Osmolality 280 Lactic Acid 1.5 Calcium 8.9 Corrected Calcium 8.9 Phosphorus Magnesium 2.4 Total Bilirubin 0.4 Direct Bilirubin 0.1 AST 40 H ALT 56 H Alkaline Phosphatase 98 Troponin I < 0.020 C-Reactive Prot, Quant 4.7 H B-Natriuretic Peptide 46 Total Protein 7.2 Albumin 4.7 Globulin 2.5 Albumin/Globulin Ratio 1.9 Triglycerides Cholesterol LDL Cholesterol, Calc HDL Cholesterol Cholesterol/HDL Ratio Procalcitonin 0.24 TSH 4.77 Ur Collection Type Clean Catch Urine Color Yellow Urine Clarity Clear Urine pH 5.5 Ur Specific [place] 1.033 Urine Protein 1+ A Urine Glucose (UA) Negative Urine Ketones Negative Urine Blood Negative Urine Nitrite Negative Urine Bilirubin Negative Urine Urobilinogen (Auto) 3.0 Ur Leukocyte Esterase Negative Urine RBC 1 Urine WBC 1 Ur Squamous Epith Cells 2 Urine Bacteria None Ur Culture Indicated? Not Indicated Urine Opiates Screen Negative Urine Fentanyl Screen Negative Ur Barbiturates Screen Negative U Amphetamin/Meth Scrn Positive A U Benzodiazepines Scrn Negative U Cocaine Metab Screen Negative U Marijuana (THC) Screen Negative 05/17/25 05/17/25 05/18/25 18:19 18:26 04:48 WBC 8.0 RBC 5.88 H Hgb 15.7 Hct 50.4 H MCV 86 MCH 26.7 MCHC 31.2 RDW Std Deviation 41.7 Plt Count 256 Neut % (Auto) 90 H Lymph % (Auto) 6 L Emanuel % (Auto) 4 Eos % (Auto) 0 Baso % (Auto) 0 Neut # (Auto) 7.2 Lymph # (Auto) 0.5 L Emanuel # (Auto) 0.3 Eos # (Auto) 0.0 Baso # (Auto) 0.0 Immature Gran # (Auto) 0.03 H Absolute Nucleated RBC 0.00 Immature Gran % 0 Nucleated RBC % 0 ESR D-Dimer Puncture Site Right Radial ABG pH 7.39 ABG pCO2 49 H ABG pO2 149 H ABG HCO3 29 H ABG O2 Saturation 100 H ABG Base Excess 3 FiO2 21 Sodium 142 Potassium 4.1 Chloride 101 Carbon Dioxide 27.7 Anion Gap 13 BUN 11 Creatinine 0.9 Estim Creat Clear Calc 62.3 eGFR > 60 BUN/Creatinine Ratio [address]ucose [address] Glu mg/dL Hemoglobin A1c Calculated Osmolality 287 Lactic Acid Calcium 9.5 Corrected Calcium 9.5 Phosphorus 4.0 Magnesium 2.3 Total Bilirubin 0.3 Direct Bilirubin AST 37 H ALT 60 H Alkaline Phosphatase 101 Troponin I < 0.020 C-Reactive Prot, Quant B-Natriuretic Peptide Total Protein 7.8 Albumin 5.1 H Globulin 2.7 Albumin/Globulin Ratio 1.9 Triglycerides 149 Cholesterol 252 H LDL Cholesterol, Calc 187 H HDL Cholesterol 35 L Cholesterol/HDL Ratio 7.2 H Procalcitonin TSH 0.97 D Ur Collection Type Urine Color Urine Clarity Urine pH Ur Specific [place] Urine Protein Urine Glucose (UA) Urine Ketones Urine Blood Urine Nitrite Urine Bilirubin Urine Urobilinogen (Auto) Ur Leukocyte Esterase Urine RBC Urine WBC Ur Squamous Epith Cells Urine Bacteria Ur Culture Indicated? Urine Opiates Screen Urine Fentanyl Screen Ur Barbiturates Screen U Amphetamin/Meth Scrn U Benzodiazepines Scrn U Cocaine Metab Screen U Marijuana (THC) Screen 05/18/25 09:28 WBC RBC Hgb Hct MCV MCH MCHC RDW Std Deviation Plt Count Neut % (Auto) Lymph % (Auto) Emanuel % (Auto) Eos % (Auto) Baso % (Auto) Neut # (Auto) Lymph # (Auto) Emanuel # (Auto) Eos # (Auto) Baso # (Auto) Immature Gran # (Auto) Absolute Nucleated RBC Immature Gran % Nucleated RBC % ESR D-Dimer Puncture Site Right Radial ABG pH 7.32 L ABG pCO2 58 H ABG pO2 82 L D ABG HCO3 30 H ABG O2 Saturation 96 ABG Base Excess 2 FiO2 21 Sodium Potassium Chloride Carbon Dioxide Anion Gap BUN Creatinine Estim Creat Clear Calc eGFR BUN/Creatinine Ratio Glucose Estimated Ave Glu mg/dL Hemoglobin A1c Calculated Osmolality Lactic Acid Calcium Corrected Calcium Phosphorus Magnesium Total Bilirubin Direct Bilirubin AST ALT Alkaline Phosphatase Troponin I C-Reactive Prot, Quant B-Natriuretic Peptide Total Protein Albumin Globulin Albumin/Globulin Ratio Triglycerides Cholesterol LDL Cholesterol, Calc HDL Cholesterol Cholesterol/HDL Ratio Procalcitonin TSH Ur Collection Type Urine Color Urine Clarity Urine pH Ur Specific [place] Urine Protein Urine Glucose (UA) Urine Ketones Urine Blood Urine Nitrite Urine Bilirubin Urine Urobilinogen (Auto) Ur Leukocyte Esterase Urine RBC Urine WBC Ur Squamous Epith Cells Urine Bacteria Ur Culture Indicated? Urine Opiates Screen Urine Fentanyl Screen Ur Barbiturates Screen U Amphetamin/Meth Scrn U Benzodiazepines Scrn U Cocaine Metab Screen U Marijuana (THC) Screen ABG Interpretation ABG results: 05/17/25 05/18/25 18:19 09:28 ABG pH 7.39 7.32 L ABG pCO2 49 H 58 H ABG pO2 149 H 82 L D ABG HCO3 29 H 30 H ABG O2 Saturation 100 H 96 ABG Base Excess 3 2 Quality Measures Quality Measures VTE prophylaxis Assessment & Plan Assessment Current Active Medications: Generic Name Dose Route Start Last Admin Trade Name Fredany PRN Reason Stop Dose Admin Acetaminophen 650 mg 05/17/25 18:00 05/17/25 18:55 Acetaminophen 325 Mg Tablet PO 06/16/25 17:59 650 mg Q6H PRN Administration Fever >100 Acetaminophen 650 mg 05/17/25 18:00 Acetaminophen 325 Mg Tablet PO 06/16/25 17:59 Q6H PRN PAIN SCALE 1-3 (mild Hydrocodone Bitart/Acetaminophen 1 tab 05/17/25 18:00 Hydrocodone/Apap 5/325 Tablet PO 05/22/25 17:59 Q4HR PRN PAIN SCALE 4-6 (Moderate Albuterol/Ipratropium 3 ml 05/17/25 19:00 05/18/25 10:15 Albuterol/Ipratropium (Duoneb) Rt Breanna 3 Ml Nebu INH 06/16/25 18:59 3 ml Q4HRRT ANNA Administration Albuterol/Ipratropium 3 ml 05/17/25 18:13 Albuterol/Ipratropium (Duoneb) Rt Breanna 3 Ml Nebu INH 06/16/25 18:12 Q2HR PRN SHORTNESS OF BREATH OR WHEEZE Atorvastatin Calcium 40 mg 05/18/25 21:00 Atorvastatin Calcium 20 Mg Tablet PO 06/17/25 20:59 HS ANNA Azithromycin 500 mg 05/17/25 18:30 05/18/25 08:09 Azithromycin 250 Mg Tablet PO 05/19/25 09:01 500 mg QDAY ANNA Administration Dextrose 25 ml 05/18/25 12:51 Dextrose 50%-Water Inj 50 Ml Syringe IV 06/17/25 12:50 Q15MIN PRN BG 50-70 responsive npo pt Dextrose 50 ml 05/18/25 12:51 Dextrose 50%-Water Inj 50 Ml Syringe IV 06/17/25 12:50 Q15MIN PRN BG <50 OR BG <70 & pt unresponsive Glucagon 1 mg 05/18/25 12:51 Glucagon Inj 1 Mg Vial IM Q15MIN PRN BG <70, and no IV access Guaifenesin 100 mg 05/17/25 21:00 05/18/25 08:10 Guaifenesin Syrup 200 Mg/10 Ml Udc PO 06/16/25 20:59 Not Given BID ANNA Protocol Heparin Sodium (Porcine) 5,000 unit 05/17/25 18:15 05/18/25 08:09 Heparin Sod Inj 5000 Unit/Ml Vial SC 05/31/25 18:14 5,000 unit Q12HR ANNA Administration Ceftriaxone Sodium/Dextrose 1 gm in 50 mls @ 100 mls/hr 05/18/25 11:50 05/18/25 12:31 Rocephin/D5w 1gm Iv Premix IV 05/25/25 11:49 100 mls/hr QDAY ANNA Administration Insulin Human Lispro 0 unit 05/18/25 17:00 Insulin Lispro (Admelog) 1 Unit/0.01 Ml Unit SC 06/17/25 16:59 AC ANNA Protocol Methylprednisolone Sodium Succinate 40 mg 05/18/25 09:00 05/18/25 08:08 Methylprednisolone Sod Succ 40 Mg/Ml Vial IVP 05/22/25 08:59 40 mg QDAY ANNA Administration Nicotine 21 mg 05/17/25 17:45 05/18/25 08:09 Nicotine Patch 21 Mg/24 Hr Patch.Td24 TOP 06/16/25 17:44 21 mg QDAY ANNA Administration Ondansetron HCl 4 mg 05/17/25 18:00 Ondansetron Inj 2 Mg/Ml Inj 2 Ml IVP 06/16/25 17:59 Q6H PRN NAUSEA OR VOMITING Protocol Pantoprazole Sodium 40 mg 05/18/25 09:00 05/18/25 08:09 Pantoprazole Inj 40 Mg Vial IVP 06/17/25 08:59 40 mg QDAY ANNA Administration Fluticasone/Salmeterol 1 puff 05/17/25 19:00 05/18/25 06:49 Fluticasone/Salmeterol 100/50 14 Dose Inh INH 06/16/25 18:59 1 puff BIDRT ANNA Administration Sodium Chloride 3 ml 05/17/25 16:09 Sodium Chloride Rt Breanna 0.9% 3 Ml Nebu INH 06/16/25 16:08 PRN PRN SOLN Sodium Chloride 3 ml 05/17/25 17:31 05/17/25 17:59 Sodium Chloride Rt Breanna 0.9% 3 Ml Nebu INH 06/16/25 17:30 3 ml PRN PRN Administration SOLN Plan 60-year-old female with PMHx of COPD, chronic bronchitis, active smoker 1ppd for >40y, methamphetamine use presented to the ED for evaluation of worsening cough and SOB for two days. Admitted for COPD exacerbation ? #Acute Hypoxic Respiratory Failure #COPD exacerbation Patient presented with 2d hx of worsening cough and SOB. Also admits to greenish phlegm with coughing worse at nights. In ED, patient received methylprednisolone 250mg x1, ipratropium 1.5mg inh, ABG: pH 7.39, pCO2 49, pO2 149, bicarb 29, O2 sat 100% CXR: no interval pneumonia or pulmonary edema EKG: sinus tachycardia Negative COVID 19, influenza A & B ABG pH 7.34, pCO2 59, PaO2 111, bicarb 31, O2 sat 99%, which shows worsened CO2 retention compared to admission and morning due to inefficacy of the BiPAP mouthpeace seal. ? Plan: -ipratropium bromide 1.5mg inh -Ordered fluticasone/salmeterol inh BIDRT - Duonebs Q4h scheduled, plus Q2h PRN SOB - Methylprednisolone 125mg x1, followed by 40mg QD; javid to IVP 40mg BID 05/18 +Pantoprazole IV 40mg QD for PPx GI ulcer 2/2 steroids - Guaifenecin PO 100mg bid, ordered without dextromethorphan to sustain tussive reflex beneficial for airway clearance. - Azithromycin 500mg for three days (05/17-) - Sputum ctx and Gram stain ordered - Chest physiotherapy daily - Continuous pulse oximetry - Oxygen delivery [4L] via NC PRN, titrate to maintain O2 sat >88% - Admitted to Telemetry ? #Transaminitis LFT's persistently elevated on successive labs: AST 37/40, and ALT 60/56 -CTM LFT's -ordered US liver ? #Prediabetes Hgb A1c 6.2 Glc 196 in AM labs 05/18 -CTM AM glc -Insulin lispro SS ? #Substance Use Disorder #Chronic Smoker Patient reports to have smoked 1 PPD >40y. Also reports daily methamphetamine use. ? Plan: -Nicotine patch 21mg -Counseling for cessation smoking and drug use -Referral to social work supervisor ? Health Maintenance: Disposition: Telemetry Diet: Regular PPx DVT: Heparin SC 5000u BID PPx GI: Pantoprazole IV 40mg Qday Code Status: Routine ? This case was discussed with my attending physician, Dr. Bishop, and senior resident, Dr Anderson. Even though this this note was carefully revised there may still be minor errors in rivet hole puncher due to voice recognition software. Amrit Buckley, PGY I Attending Provider Attestation/Addendum I have seen and examined the patient. I was physically present for the vega portions of the services provided including history, physical exam, diagnosis, treatment plans and orders. I agree with assessment and plan of care as documented by residents. Even though this this note was carefully revised there may still be minor errors in rivet hole puncher due to voice recognition software. Angie Bishop MD
--- NOTE | 2025-05-18 15:10 | ECHO_ITS ---
Patient Info Name: Nydia Cannon Age: 60 years : 1965 Gender: Female Ht: 157 cm Wt: 75 kg BSA: 1.84 m2 BP: 131 / 79 mmHg HR: 121 bpm Exam Date: 05/19/2025 7:54 AM Admit Date: 05/17/2025 Site: [facility] Room Number: [id number] Patient Status: I Technical Quality: Poor Exam Type: CA echo doppler complete Reason for Poor Study: poor patient cooperation Group Manager: Ines Soares Ordering Physician: Angie Bishop Study Info Indications AHRF, h/o meth abuse - Primary Location: [id number] Left Ventricular Outflow Tract Name Value Normal LVOT 2D LVOT Diameter 1.9 cm Mitral Valve Name Value Normal MV Doppler MV Mean Gradient 4 mmHg Tricuspid Valve Name Value Normal Estimated PAP/RSVP RA Pressure 8 mmHg <=5 Aortic Valve Name Value Normal AV Regurgitation 2D LVOT Area 2.8 cm2 Ventricles Name Value Normal LV Dimensions 2D/MM IVS Diastolic Thickness (2D) 1.0 cm 0.6-0.9 LVID Diastole (2D) 3.9 cm 3.8-5.2 LVIW Diastolic Thickness (2D) 1.0 cm 0.6-0.9 LVID Systole (2D) 2.8 cm 2.2-3.5 LVOT Diameter 1.9 cm LV Mass (2D Cubed) 122.12 g 67.00-162.00 LV Mass Index (2D Cubed) 67 g/m2 43-95 Relative Wall Thickness (2D) 0.51 <=0.42 IVS/LVIW Diastolic Thickness (2D) 1.00 0.00-1.50 LV Fractional Shortening/Ejection Fraction 2D/MM LV Fractional Shortening (2D) 28 % 27-45 LV EF (2D Teichholz) 55 % Left Ventricle Left ventricular chamber dimension is normal. Left ventricular systolic function is normal with visually estimated ejection fraction of 55-60%. There is mild concentric hypertrophy noted in the left ventricle. Left ventricular segmental wall motion is normal. There is indeterminate diastolic function in the left ventricle. Right Ventricle Right ventricular chamber dimension is normal. Right ventricular systolic function is normal. Left Atrium Left atrial chamber dimension is normal. Right Atrium Right atrial chamber dimension is normal. Aortic Valve Aortic valve is not well visualized. Pulmonic Valve Pulmonary valve is not well visualized. Mitral Valve The mitral valve has normal leaflets. There is no mitral valve stenosis. There is trace mitral valve regurgitation. Tricuspid Valve The tricuspid valve leaflets are normal. There is no tricuspid valve stenosis. There is no tricuspid valve regurgitation. Unable to estimate pulmonary artery systolic pressure due to inadequate tricuspid regurgitant envelope. Pericardium/Pleural The pericardium appears normal. There is trivial pericardial effusion with no tamponade. No pleural effusion visualized. Inferior Vena Cava Not well visualized inferior vena cava. Aorta The aortic measurements are indexed to age and body surface area. The aortic root at the sinus of Valsalva is not well visualized. The prox ascending aorta is not well visualized. Summary 1. Limited study as pt uncooperative. limited views. 2. Left ventricle size is normal and systolic function is normal. Estimated ejection fraction is 55-60%. There is indeterminate diastolic function. There is mild concentric hypertrophy noted. 3. Right ventricle chamber size is normal and systolic function is normal. 4. There is trace mitral valve regurgitation. Left and right atrium normal. 5. There is trivial pericardial effusion with no tamponade. Report Signatures Finalized by Rey Mathews on 05/19/2025 07:33 PM
--- NOTE | 2025-05-18 15:42 | PC.SS ---
Rounding: On IV ABX, on Bipap
[2025-05-18 15:47] LABS: Base Excess 4 (-3-3); HCO3 31 mEq/L (20-26); Inspired Oxygen, FIO2 21 %; O2 Saturation 99 % (91-98); PCO2 59 mmHg (32.0-48.0); PO2 111 mmHg (83-108); pH, Arterial 7.34 (7.35-7.45)
[2025-05-18 16:12] LABS: Allen Test Performed/OK; Puncture Site Right Radial
[2025-05-18] MEDS: Magnesium Sulfate 2 GM Ivpb 2 GM/50 ML BAG IV (17:45)
[2025-05-18] MEDS: LORazepam 2 MG/ML VIAL 0.5 MG IVP (19:56)
--- NOTE | 2025-05-18 20:36 | PC.NURSE ---
Dr. Whitmore notified regarding patient's elevated BP. He stated that it might be the residual from the anxiety patient was experiencing this evening and to recheck in an hour.
[2025-05-18] MEDS: LORazepam 2 MG/ML VIAL 1 MG IVP (21:15)
[2025-05-18] MEDS: OLANZapine INJ 10 MG, Sterile Water 2.1 ML IM (21:15)
[2025-05-18 21:22] LABS: Base Excess 2 (-3-3); HCO3 32 mEq/L (20-26); Inspired Oxygen, FIO2 40 %; O2 Saturation 95 % (91-98); PCO2 68 mmHg (32.0-48.0); PO2 77 mmHg (83-108); pH, Arterial 7.27 (7.35-7.45)
[2025-05-18 21:24] LABS: Allen Test Not Performed; Puncture Site Left Radial
--- NOTE | 2025-05-18 22:05 | PC.NURSE ---
Dr. Heath notified regarding updated BP (which is now 145/84) as well as that recent ABG results are in for her to see.
[2025-05-19] VITALS (18 sets, daily range): BP systolic 124–163; BP diastolic 76–102; PULSE 82–120; RESP 12–44; TEMP 36.1–36.7; O2SAT 92–124; BMI 30.2
[2025-05-19 00:14] LABS: Allen Test Performed/OK; Base Excess 3 (-3-3); HCO3 32 mEq/L (20-26); Inspired Oxygen, FIO2 21 %; O2 Saturation 96 % (91-98); PCO2 68 mmHg (32.0-48.0); PO2 83 mmHg (83-108); Puncture Site Right Radial; pH, Arterial 7.28 (7.35-7.45)
--- NOTE | 2025-05-19 00:15 | PC.RT ---
MD increased IPAP post abg to improve gas exchange. abg to follow.
--- NOTE | 2025-05-19 00:31 | PC.NURSE ---
Dr. Heath aware of recent ABG results.
[2025-05-19] MEDS: LORazepam 2 MG/ML VIAL 0.5 MG IVP ×2 (02:28→07:44)
[2025-05-19 02:45] LABS: Allen Test Performed/OK; Base Excess 4 (-3-3); HCO3 32 mEq/L (20-26); Inspired Oxygen, FIO2 40 %; O2 Saturation 95 % (91-98); PCO2 62 mmHg (32.0-48.0); PO2 79 mmHg (83-108); Puncture Site Right Radial; pH, Arterial 7.33 (7.35-7.45)
[2025-05-19] MEDS: ALBUTEROL/IPRATROPIUM (Duoneb) RT SOL 3 ML NEBU INH ×6 (02:52→23:16)
--- NOTE | 2025-05-19 04:45 | PC.RT ---
increased ipap post abg and shortened itime to 0.70 to improve gas exchange. MD at bedside.
--- NOTE | 2025-05-19 05:27 | PC.NURSE ---
Dr. Heath and Dr. Whitmore notified regarding patient impulsively trying to get up and being very anxious, stating that she can't breath (patient on bipap). MDs made aware of HR 120, respiratory rate 30s and 40s, and BP 153/102. Doctors came to assess patient at bedside and Dr. Heath said she is not comfortable ordering any more sedatives and to just provide the patient reassurance at this point while keepin the Bipap on. This RN will continue to closely monitor the patient.
--- NOTE | 2025-05-19 05:31 | PC.NURSE ---
Dr. Heath stated to not obtain RSV sample now so Bipap can remain on.
[2025-05-19 06:26] LABS: Basophils # (Auto) 0.1 Thou/mm3 (0.0-0.2); Basophils % (Auto) 0 % (0-2.5); Eosinophils # (Auto) 0.0 Thou/mm3 (0.0-0.5); Eosinophils % (Auto) 0 % (0-10); Hematocrit 51.6 % (36.0-46.0); Hemoglobin 15.8 g/dL (12.0-16.0); Immature Granulocytes Auto 0.12 Thou/mm3 (0.00-0.00); Lymphocytes # (Auto) 0.7 Thou/mm3 (1.0-4.8); Lymphocytes % (Auto) 3 % (10-50); Mean Corpuscular HGB Conc 30.6 g/dl (31.0-37.0); Mean Corpuscular Hemoglobin 26.9 pg (25.0-35.0); Mean Corpuscular Volume 88 fL (80-100); Monocytes # (Auto) 1.7 Thou/mm3 (0.0-0.8); Monocytes % (Auto) 8 % (0-12); Neutrophils # (Auto) 18.7 Thou/mm3 (1.8-7.7); Neutrophils % (Auto) 88 % (37-80); Nucleated Red Blood Cell # 0.00 Thou/mm3 (0.00-0.00); Nucleated Red Blood Cell % 0 /100 WBC (0); Platelet Count 387 Thou/mm3 (140-440); RDW Standard Deviation 43.7 fL (36.4-46.3); Red Blood Count 5.88 Miln/mm3 (4.00-5.20); White Blood Count 21.2 Thou/mm3 (3.6-11.0)
[2025-05-19 06:38] LABS: Alanine Aminotransferase 69 U/L (10-49); Albumin, Serum 4.8 gm/dL (3.4-4.8); Albumin/Globulin Ratio 1.5 (1.2-2.2); Alkaline Phosphatase 106 U/L (46-116); Anion Gap 11 (7-16); Aspartate Amino Transferase 30 U/L (0-34); BUN/Creatinine Ratio 21 Ratio (12-20); Bilirubin,Total 0.3 mg/dL (0.3-1.2); Blood Urea Nitrogen 21 mg/dL (9-23); Calcium 9.6 mg/dL (8.3-10.6); Calcium (Corrected) 9.6 mg/dL (8.5-10.1); Carbon Dioxide 31.2 mMol/L (20.0-31.0); Chloride 101 mMol/L (98-107); Creatinine (Component) 1.0 mg/dL (0.6-1.3); Estimated Creatinine Clearance 56.0 mL/min (>60); Globulin 3.2 gm/dL (2.3-3.5); Glucose 140 mg/dL (74-106); Magnesium 2.8 mg/dL (1.6-2.6); Osmolality,Calculated 289 (275-295); Phosphorous 5.3 mg/dL (2.4-5.1); Potassium 4.7 mMol/L (3.4-5.1); Sodium 143 mMol/L (136-145); Total Protein 8.0 gm/dL (5.7-8.2); eGFR > 60 See Note
--- NOTE | 2025-05-19 09:04 | XR_ITS ---
EXAMINATION: AP chest single view TECHNIQUE: AP chest single view portable semiupright Date and time: May 19, 2025, 0951 hours INDICATIONS: Shortness of breath today. FINDINGS: Normal heart size Accentuation basilar bronchovascular markings. No lobar pneumonia. Severe osteopenia IMPRESSION: Basilar bronchitis pattern
[2025-05-19] MEDS: HALOPERIDOL LACT INJ 5 MG/ML VIAL 1 MG IV (09:10)
[2025-05-19] MEDS: cefTRIAXone/D5w 1gm IV premix 1 GM/50 ML BAG IV (09:18)
[2025-05-19] MEDS: HEPARIN SOD INJ 5000 UNIT/ML VIAL SC ×2 (09:18→22:39)
[2025-05-19] MEDS: NICOTINE PATCH 21 MG/24 HR PATCH.TD24 TOP (09:18)
[2025-05-19] MEDS: AZITHROMYCIN INJ 500 MG in SODIUM CHLORIDE 0.9% 250 ML 250 ML 250 MG IV (10:27)
[2025-05-19] MEDS: LORazepam 2 MG/ML VIAL 1 MG IVP (11:12)
[2025-05-19] MEDS: GABAPENTIN 300 MG CAPSULE PO (11:12)
[2025-05-19] MEDS: CEFEPIME INJ 2 GM in SODIUM CHLORIDE 0.9% (Popper) 50 ML IV (11:20)
[2025-05-19] MEDS: ALBUTEROL RT 2.5 MG/3 ML NEBU 10 MG INH (11:39)
[2025-05-19] MEDS: Magnesium Sulfate 2 GM Ivpb 2 GM/50 ML BAG IV (11:46)
[2025-05-19] MEDS: Vancomycin Inj 1,500 MG in SODIUM CHLORIDE 0.9% 500 ML 500 ML 200 MG IV (12:27)
[2025-05-19 13:41] LABS: Respiratory Syncytial Virus Ag Negative (Negative)
[2025-05-19 13:44] LABS: Base Excess 2 (-3-3); HCO3 33 mEq/L (20-26); Inspired Oxygen, FIO2 40 %; O2 Saturation 97 % (91-98); PCO2 85 mmHg (32.0-48.0); PO2 95 mmHg (83-108); pH, Arterial 7.20 (7.35-7.45)
[2025-05-19 13:53] LABS: Allen Test Performed/OK; Puncture Site Right Radial
--- NOTE | 2025-05-19 14:19 | PD.RESPRO ---
Documentation for date of: 05/19/25 Subjective Subjective Interval history: Patient seen at bedside. Was very agitated overnight. Continued on BiPAP. Medical restraints had to be placed due to difficulty in managing agitation, with one-to-one sitter. Pulmonology consult placed as been on BiPAP for 1.5 day and no improvement. BiPAP settings were adjusted to tidal volume 450, RR 15, PEEP of 5, peak 20. Patient will finish azithromycin 3-day course tomorrow. Methylprednisolone was increased to 40 mg 3 times daily. Vancomycin and cefepime that was ordered today was discontinued. Continue DuoNebs every 4 hours. Lorazepam 1 mg as needed every 8 hours but assess patient first. Exam Vital Signs Temp Pulse Resp BP Pulse Ox O2 Del Method O2 Flow Rate 97.0 F 97 33 H 143/96 H 92 L BiPAP 40 05/19/25 12:00 05/19/25 14:07 05/19/25 14:07 05/19/25 12:00 05/19/25 14:07 05/19/25 12:00 05/19/25 08:00 FiO2 40 05/19/25 14:07 Narrative Exam General: Orientation unable to assess as very agitated Skin: Intact, Warm, no rashes. HEENT: Normocephalic, Atraumatic. Normal neck range of motion, Supple. Trachea midline. Respiratory: Bilateral wheezes present Cardiovascular: tachycardia, regular rhythm. normal S1, S2, No murmurs. Distal pulses 2+ Abdomen: Abdomen non-distended, without erythema, or lesions. Normotensive bowel sounds x4. Percussion tympanic. Palpation soft, nontender in all four quadrants. No organomagely. Absent rigidity, guarding, or rebound. Musculoskeletal/Extremities: No erythema, swelling, tenderness of any joints. No edema of BLE. DP pulses +2/3 b/l. Full active ROM of all four extremities. Neurologic: NEURO: Oriented x3, cranial nerves II to XII grossly intact. Muscle strength 5/5 on UE and LE b/l, Moves extremities x4. Sensation intact to gross touch along C6-T1 and L2-S1 dermatomes. No focal neurologic deficits noted Psych: Thoughts linear and responses appropriate. Objective Labs 05/20/25 17:42 05/20/25 05:56 Labs: Laboratory Results - last 24 hr 12/05/18/25 05/18/25 15:37 21:14 23:52 WBC RBC Hgb Hct MCV MCH MCHC RDW Std Deviation Plt Count Neut % (Auto) Lymph % (Auto) [place] % (Auto) Eos % (Auto) Baso % (Auto) Neut # (Auto) Lymph # (Auto) [place] # (Auto) Eos # (Auto) Baso # (Auto) Immature Gran # (Auto) Absolute Nucleated RBC Immature Gran % Nucleated RBC % Puncture Site Right Radial Left Radial Right Radial ABG pH 7.34 L 7.27 L 7.28 L ABG pCO2 59 H 68 H 68 H ABG pO2 111 H D 77 L D 83 ABG HCO3 31 H 32 H 32 H ABG O2 Saturation 99 H 95 96 ABG Base Excess 4 H 2 3 FiO2 21 40 21 Sodium Potassium Chloride Carbon Dioxide Anion Gap BUN Creatinine Estim Creat Clear Calc eGFR BUN/Creatinine Ratio Glucose Calculated Osmolality Calcium Corrected Calcium Phosphorus Magnesium Total Bilirubin AST ALT Alkaline Phosphatase Total Protein Albumin Globulin Albumin/Globulin Ratio RSV Rapid 05/19/25 05/19/25 05/19/25 02:35 04:50 12:00 WBC 21.2 H D RBC 5.88 H Hgb 15.8 Hct 51.6 H MCV 88 MCH 26.9 MCHC 30.6 L RDW Std Deviation 43.7 Plt Count 387 D Neut % (Auto) 88 H Lymph % (Auto) 3 L [place] % (Auto) 8 Eos % (Auto) 0 Baso % (Auto) 0 Neut # (Auto) 18.7 H Lymph # (Auto) 0.7 L [place] # (Auto) 1.7 H Eos # (Auto) 0.0 Baso # (Auto) 0.1 Immature Gran # (Auto) 0.12 H Absolute Nucleated RBC 0.00 Immature Gran % 1 H Nucleated RBC % 0 Puncture Site Right Radial ABG pH 7.33 L ABG pCO2 62 H ABG pO2 79 L ABG HCO3 32 H ABG O2 Saturation 95 ABG Base Excess 4 H FiO2 40 Sodium 143 Potassium 4.7 D Chloride 101 Carbon Dioxide 31.2 H Anion Gap 11 BUN 21 Creatinine 1.0 Estim Creat Clear Calc 56.0 L eGFR > 60 BUN/Creatinine Ratio 21 H Glucose 140 H D Calculated Osmolality 289 Calcium 9.6 Corrected Calcium 9.6 Phosphorus 5.3 H Magnesium 2.8 H Total Bilirubin 0.3 AST 30 ALT 69 H Alkaline Phosphatase 106 Total Protein 8.0 Albumin 4.8 Globulin 3.2 Albumin/Globulin Ratio 1.5 RSV Rapid Negative 05/19/25 13:35 WBC RBC Hgb Hct MCV MCH MCHC RDW Std Deviation Plt Count Neut % (Auto) Lymph % (Auto) [place] % (Auto) Eos % (Auto) Baso % (Auto) Neut # (Auto) Lymph # (Auto) [place] # (Auto) Eos # (Auto) Baso # (Auto) Immature Gran # (Auto) Absolute Nucleated RBC Immature Gran % Nucleated RBC % Puncture Site Right Radial ABG pH 7.20 L D ABG pCO2 85 H* D ABG pO2 95 ABG HCO3 33 H ABG O2 Saturation 97 ABG Base Excess 2 FiO2 40 Sodium Potassium Chloride Carbon Dioxide Anion Gap BUN Creatinine Estim Creat Clear Calc eGFR BUN/Creatinine Ratio Glucose Calculated Osmolality Calcium Corrected Calcium Phosphorus Magnesium Total Bilirubin AST ALT Alkaline Phosphatase Total Protein Albumin Globulin Albumin/Globulin Ratio RSV Rapid ABG Interpretation ABG results: 05/17/25 05/18/25 05/18/25 18:19 09:28 15:37 ABG pH 7.39 7.32 L 7.34 L ABG pCO2 49 H 58 H 59 H ABG pO2 149 H 82 L D 111 H D ABG HCO3 29 H 30 H 31 H ABG O2 Saturation 100 H 96 99 H ABG Base Excess 3 2 4 H 05/18/25 05/18/25 05/19/25 21:14 23:52 02:35 ABG pH 7.27 L 7.28 L 7.33 L ABG pCO2 68 H 68 H 62 H ABG pO2 77 L D 83 79 L ABG HCO3 32 H 32 H 32 H ABG O2 Saturation 95 96 95 ABG Base Excess 2 3 4 H 05/19/25 13:35 ABG pH 7.20 L D ABG pCO2 85 H* D ABG pO2 95 ABG HCO3 33 H ABG O2 Saturation 97 ABG Base Excess 2 Quality Measures Quality Measures VTE prophylaxis Assessment & Plan Assessment Current Active Medications: Generic Name Dose Route Start Last Admin Trade Name Freq PRN Reason Stop Dose Admin Acetaminophen 650 mg 05/17/25 18:00 05/17/25 18:55 Acetaminophen 325 Mg Tablet PO 06/16/25 17:59 650 mg Q6H PRN Administration Fever >100 Acetaminophen 650 mg 05/17/25 18:00 Acetaminophen 325 Mg Tablet PO 06/16/25 17:59 Q6H PRN PAIN SCALE 1-3 (mild Hydrocodone Bitart/Acetaminophen 1 tab 05/17/25 18:00 Hydrocodone/Apap 5/325 Tablet PO 05/22/25 17:59 Q4HR PRN PAIN SCALE 4-6 (Moderate Albuterol/Ipratropium 3 ml 05/17/25 19:00 05/19/25 14:06 Albuterol/Ipratropium (Duoneb) Rt Breanna 3 Ml Nebu INH 06/16/25 18:59 3 ml Q4HRRT ANNA Administration Albuterol/Ipratropium 3 ml 05/17/25 18:13 05/18/25 19:10 Albuterol/Ipratropium (Duoneb) Rt Breanna 3 Ml Nebu INH 06/16/25 18:12 3 ml Q2HR PRN Administration SHORTNESS OF BREATH OR WHEEZE Atorvastatin Calcium 40 mg 05/18/25 21:00 05/18/25 20:12 Atorvastatin Calcium 20 Mg Tablet PO 06/17/25 20:59 Not Given HS ANNA Dextrose 25 ml 05/18/25 12:51 Dextrose 50%-Water Inj 50 Ml Syringe IV 06/17/25 12:50 Q15MIN PRN BG 50-70 responsive npo pt Dextrose 50 ml 05/18/25 12:51 Dextrose 50%-Water Inj 50 Ml Syringe IV 06/17/25 12:50 Q15MIN PRN BG <50 OR BG <70 & pt unresponsive Gabapentin 300 mg 05/19/25 10:55 05/19/25 11:12 Gabapentin 300 Mg Capsule PO 06/18/25 10:54 300 mg TID ANNA Administration Glucagon 1 mg 05/18/25 12:51 Glucagon Inj 1 Mg Vial IM Q15MIN PRN BG <70, and no IV access Guaifenesin 100 mg 05/17/25 21:00 05/19/25 09:18 Guaifenesin Syrup 200 Mg/10 Ml Udc PO 06/16/25 20:59 Not Given BID ANNA Protocol Heparin Sodium (Porcine) 5,000 unit 05/17/25 18:15 05/19/25 09:18 Heparin Sod Inj 5000 Unit/Ml Vial SC 05/31/25 18:14 5,000 unit Q12HR ANNA Administration Cefepime HCl 2 gm/ Sodium 50 mls @ 100 mls/hr 05/19/25 11:05 05/19/25 11:20 Chloride IV 05/26/25 11:04 100 mls/hr Q8HR ANNA Administration Insulin Human Lispro 0 unit 05/18/25 17:00 05/19/25 11:53 Insulin Lispro (Admelog) 1 Unit/0.01 Ml Unit SC 06/17/25 16:59 Not Given AC ANNA Protocol Lorazepam 0.5 mg 05/19/25 07:36 05/19/25 07:44 Lorazepam 2 Mg/Ml Vial IVP 05/24/25 07:35 0.5 mg Q8HR PRN Administration ANXIETY Methylprednisolone Sodium Succinate 40 mg 05/19/25 14:00 Methylprednisolone Sod Succ 40 Mg/Ml Vial IVP 05/26/25 13:59 TID ANNA Nicotine 21 mg 05/17/25 17:45 05/19/25 09:18 Nicotine Patch 21 Mg/24 Hr Patch.Td24 TOP 06/16/25 17:44 21 mg QDAY ANNA Administration Ondansetron HCl 4 mg 05/17/25 18:00 Ondansetron Inj 2 Mg/Ml Inj 2 Ml IVP 06/16/25 17:59 Q6H PRN NAUSEA OR VOMITING Protocol Pantoprazole Sodium 40 mg 05/18/25 09:00 05/19/25 09:16 Pantoprazole Inj 40 Mg Vial IVP 06/17/25 08:59 40 mg QDAY ANNA Administration Pharmacy Consult 1 each 05/19/25 11:00 05/19/25 12:27 Vancomycin Pharmacy To Dose 1 Each Each IV 06/18/25 10:59 1 each QDAY ANNA Administration Sodium Chloride 3 ml 05/17/25 17:31 05/17/25 17:59 Sodium Chloride Rt Breanna 0.9% 3 Ml Nebu INH 06/16/25 17:30 3 ml PRN PRN Administration SOLN Plan 60-year-old female with PMHx of COPD, chronic bronchitis, active smoker 1ppd for >40y, methamphetamine use presented to the ED for evaluation of worsening cough and SOB for two days. Admitted for COPD exacerbation ? #Acute Hypoxic Respiratory Failure #COPD exacerbation Patient presented with 2d hx of worsening cough and SOB. Also admits to greenish phlegm with coughing worse at nights. In ED, patient received methylprednisolone 250mg x1, ipratropium 1.5mg inh, ABG: pH 7.39, pCO2 49, pO2 149, bicarb 29, O2 sat 100% CXR: no interval pneumonia or pulmonary edema EKG: sinus tachycardia Negative COVID 19, influenza A & B ABG pH 7.34, pCO2 59, PaO2 111, bicarb 31, O2 sat 99%, which shows worsened CO2 retention compared to admission and morning due to inefficacy of the BiPAP mouthpeace seal. 05/19: ABG in the afternoon showed pH 7.2 with pCO2 85, made BiPAP changes, repeat ABG showed improvement pH 7.29 and pCO2 69. Vancomycin and cefepime were ordered and discontinued today, no infective source. Medical restraints had to be placed due to difficulty in managing agitation, with one-to-one sitter. Plan: -ipratropium bromide 1.5mg inh -Ordered fluticasone/salmeterol inh BIDRT -ABG ordered in a.m. - Duonebs Q4h scheduled, plus Q2h PRN SOB - Methylprednisolone increased to 40 mg 3 times daily - Pantoprazole IV 40mg QD - Guaifenecin PO 100mg bid, ordered without dextromethorphan to sustain tussive reflex beneficial for airway clearance. - Azithromycin 500mg for three days (05/18-) - Chest physiotherapy daily ? #Transaminitis, improved LFT's persistently elevated on successive labs: AST 37/40, and ALT 60/56 Liver ultrasound showed cholelithiasis Plan -CTM LFT's ? #Prediabetes Hgb A1c 6.2 Glc 196 in AM labs 05/18 -CTM AM glc -Insulin lispro SS ? #Substance Use Disorder #Chronic Smoker Patient reports to have smoked 1 PPD >40y. Also reports daily methamphetamine use. Plan: -Nicotine patch 21mg -Counseling for cessation smoking and drug use -Referral to nursing home social worker ? Health Maintenance: Disposition: Telemetry Diet: Regular PPx DVT: Heparin SC 5000u BID PPx GI: Pantoprazole IV 40mg Qday Code Status: Routine Case discussed with my attending Dr. Bishop, and senior resident, Dr. Rosa Gandhi MD PGY-1 Senior Resident Attestation: The patient was agitated overnight, and received multiple doses of benzodiazepines, and later this morning bilateral upper extremity restraints was placed as she was not following commands and pulling her lines. Later she received 1 mg of IV haloperidol, and 1 mg of IV lorazepam, and despite being on BiPAP, her tidal volume was low, and was added on vancomycin and cefepime. And pulmonology consultation was done with Dr. Calloway, and BiPAP settings were adjusted to tidal volume 450, RR 15, PEEP of 5, high peak pressure of 20. Her ABG pCO2 then trended down, and there was improvement on pH. We will continue with BiPAP, and continue with DuoNeb, and vancomycin and cefepime were discontinued. I discussed with and supervised the healthcare administration intern physician involved in the care of this patient. I personally saw and examined the patient and discussed the assessment and plan with the entire medicine team, including my attending. I agree with the assessment and plan as documented above. Negro Lee MD PGY3 Internal Medicine Attending Provider Attestation/Addendum I have seen and examined the patient. I was physically present for the vega portions of the services provided including history, physical exam, diagnosis, treatment plans and orders. I agree with assessment and plan of care as documented by residents. Even though this this note was carefully revised there may still be minor errors in administrator of home health due to voice recognition software. Angie Bishop MD
--- NOTE | 2025-05-19 14:25 | PC.NURSE ---
DR. JACKSON AT BEDSIDE
[2025-05-19 16:02] LABS: Base Excess 4 (-3-3); HCO3 33 mEq/L (20-26); Inspired Oxygen, FIO2 40 %; O2 Saturation 95 % (91-98); PCO2 69 mmHg (32.0-48.0); PO2 75 mmHg (83-108); pH, Arterial 7.29 (7.35-7.45)
[2025-05-19 16:03] LABS: Allen Test Performed/OK; Puncture Site Right Radial
[2025-05-20] VITALS (130 sets, daily range): BP systolic 59–234; BP diastolic 41–146; PULSE 56–107; RESP 15–44; TEMP 36.1–36.7; O2SAT 66–100; BMI 29.4; BMI 29.6
[2025-05-20] MEDS: ALBUTEROL/IPRATROPIUM (Duoneb) RT SOL 3 ML NEBU INH ×4 (02:03→22:53)
[2025-05-20] MEDS: LORazepam 2 MG/ML VIAL 1 MG IVP (03:42)
[2025-05-20 04:13] LABS: Base Excess 6 (-3-3); HCO3 38 mEq/L (20-26); Inspired Oxygen, FIO2 21 %; PCO2 91 mmHg (32.0-48.0); PO2 129 mmHg (83-108); pH, Arterial 7.22 (7.35-7.45)
[2025-05-20 04:17] LABS: Allen Test Performed/OK; O2 Saturation 97 % (91-98); Puncture Site Right Radial
[2025-05-20] MEDS: ETOMIDATE INJ 2 MG/ML VIAL 10 ML 20 MG IV (05:13)
[2025-05-20] MEDS: ROCURONIUM INJ 10 MG/ML VIAL 10 ML 75 MG IV (05:14)
--- NOTE | 2025-05-20 05:23 | XR_ITS ---
EXAMINATION: AP chest single view TECHNIQUE: AP portable chest single view Date and time: May 20, 2025, 0531 hours, comparison May 19, 2025 INDICATIONS: Hypoxic respiratory failure post intubation today, post orogastric tube placement FINDINGS: COPD with significant hyperexpansion Accentuation of the basilar bronchovascular markings. No lobar pneumonia. Orogastric tube tip body of the stomach satisfactory position Endotracheal tube tip 6.2 cm above joe IMPRESSION: COPD Orogastric tube tip body the stomach satisfactory position Endotracheal tube tip 6.2 cm above joe No aspiration pneumonia
--- NOTE | 2025-05-20 05:25 | ESCONSULT_ITS ---
HPI Data of Consult Requesting Physician: Angie Bishop MD Admitting Provider: Angie Bishop MD Attending Provider: Angie Bishop MD Primary Care Provider: Physician No Primary/Family Consult Narrative Reason for consult: Acute hypoxic respiratory failure with acidosis History of present illness: Patient is a 60 years old female with PMH of COPD, chronic bronchitis, active smoker 1ppd for >40y, methamphetamine use initially presented to the ED on 05/17 for evaluation of worsening cough and SOB for two days. She was admitted and started on BiPAP, breathing treatment and IV steroids. Her condition has failed to improve and today she became agitated while on BiPAP, her ABG showed worsening acidosis with pH 7.22, severe hypercapnia with pCO2 91. Decision was made to upgrade patient to ICU and intubate. Family was contacted. cc:: cc: Angie Bishop MD Review of Systems Review of Systems ROS Unobtainable: unobtainable due to mental status and due to endotracheal tube Exam Vital Signs Temp Pulse Resp BP Pulse Ox O2 Del Method O2 Flow Rate 97.8 F 98 32 H 148/94 H 90 L BiPAP 40 05/19/25 20:00 05/20/25 04:00 05/20/25 04:00 05/20/25 04:00 05/20/25 04:00 05/20/25 04:00 05/19/25 16:00 FiO2 40 05/20/25 02:06 Narrative Exam Gen: Well-developed and well-nourished female in significant respiratory distress. HEENT: NCAT, PERRLA, EOMI, MMM, anicteric conjunctivae. CVS: normal S1 and S2. Regular tachycardia. No M/R/G. Resp: Severely reduced air movement with expiratory wheezing. No rhonchi, rales, crackles. Abd: soft, non-tender, non-distended. BS+ in all 4 quadrants. MSK: Good ROM in BUE & BLE. No edema or rash. Neuro: limited exam due to mental status. Results Labs 05/20/25 05:56 05/19/25 04:50 Labs: Short CBC 05/19/25 Range/Units 04:50 WBC 21.2 H D (3.6-11.0) Thou/mm3 Hgb 15.8 (12.0-16.0) g/dL Hct 51.6 H (36.0-46.0) % Plt Count 387 D (140-440) Thou/mm3 BMP 05/19/25 04:50 Sodium 143 Potassium 4.7 D Chloride 101 Carbon Dioxide 31.2 H BUN 21 Creatinine 1.0 Glucose 140 H D Calcium 9.6 Liver Function 05/19/25 Range/Units 04:50 Total Bilirubin 0.3 (0.3-1.2) mg/dL AST 30 (0-34) U/L ALT 69 H (10-49) U/L Alkaline Phosphatase 106 (46-116) U/L Albumin 4.8 (3.4-4.8) gm/dL ABG Interpretation ABG results: 05/17/25 05/18/25 05/18/25 18:19 09:28 15:37 ABG pH 7.39 7.32 L 7.34 L ABG pCO2 49 H 58 H 59 H ABG pO2 149 H 82 L D 111 H D ABG HCO3 29 H 30 H 31 H ABG O2 Saturation 100 H 96 99 H ABG Base Excess 3 2 4 H 05/18/25 05/18/25 05/19/25 21:14 23:52 02:35 ABG pH 7.27 L 7.28 L 7.33 L ABG pCO2 68 H 68 H 62 H ABG pO2 77 L D 83 79 L ABG HCO3 32 H 32 H 32 H ABG O2 Saturation 95 96 95 ABG Base Excess 2 3 4 H 05/19/25 05/19/25 05/20/25 13:35 15:50 04:06 ABG pH 7.20 L D 7.29 L 7.22 L ABG pCO2 85 H* D 69 H D 91 H* D ABG pO2 95 75 L D 129 H D ABG HCO3 33 H 33 H 38 H ABG O2 Saturation 97 95 97 ABG Base Excess 2 4 H 6 H Quality Measures Quality Measures none Medications Home Medications and Allergies Home Medications ?Medication ?Instructions ?Recorded ?Confirmed ?Type aspirin 81 mg capsule 81 mg PO PRN 05/17/25 History Allergies Allergy/AdvReac Type Severity Reaction Status Date / Time codeine AdvReac Intermediate NAUSEATED Verified 02/10/21 10:22 NKA Allergy Uncoded 05/19/25 11:12 Visit Medications Acetaminophen (Acetaminophen 325 Mg Tablet) 650 mg PO Q6H PRN PRN Reason: Fever >100 Stop: 06/16/25 17:59 Last Admin: 05/17/25 18:55 Dose: 650 mg Acetaminophen (Acetaminophen 325 Mg Tablet) 650 mg PO Q6H PRN PRN Reason: PAIN SCALE 1-3 (mild Stop: 06/16/25 17:59 Hydrocodone Bitart/Acetaminophen (Hydrocodone/Apap 5/325 Tablet) 1 tab PO Q4HR PRN PRN Reason: PAIN SCALE 4-6 (Moderate Stop: 05/22/25 17:59 Albuterol/Ipratropium (Albuterol/Ipratropium (Duoneb) Rt Breanna 3 Ml Nebu) 3 ml INH Q4HRRT ANNA Stop: 06/16/25 18:59 Last Admin: 05/20/25 02:03 Dose: 3 ml Albuterol/Ipratropium (Albuterol/Ipratropium (Duoneb) Rt Breanna 3 Ml Nebu) 3 ml INH Q2HR PRN PRN Reason: SHORTNESS OF BREATH OR WHEEZE Stop: 06/16/25 18:12 Last Admin: 05/18/25 19:10 Dose: 3 ml Atorvastatin Calcium (Atorvastatin Calcium 20 Mg Tablet) 40 mg PO HS [facility] Stop: 06/17/25 20:59 Last Admin: 05/19/25 22:40 Dose: Not Given Dextrose (Dextrose 50%-Water Inj 50 Ml Syringe) 25 ml IV Q15MIN PRN PRN Reason: BG 50-70 responsive npo pt Stop: 06/17/25 12:50 Dextrose (Dextrose 50%-Water Inj 50 Ml Syringe) 50 ml IV Q15MIN PRN PRN Reason: BG <50 OR BG <70 & pt unresponsive Stop: 06/17/25 12:50 Gabapentin (Gabapentin 300 Mg Capsule) 300 mg PO TID [facility] Stop: 06/18/25 10:54 Last Admin: 05/19/25 22:40 Dose: Not Given Glucagon (Glucagon Inj 1 Mg Vial) 1 mg IM Q15MIN PRN PRN Reason: BG <70, and no IV access Guaifenesin (Guaifenesin Syrup 200 Mg/10 Ml Udc) 100 mg PO BID [facility]; Protocol Stop: 06/16/25 20:59 Last Admin: 05/19/25 22:40 Dose: Not Given Heparin Sodium (Porcine) (Heparin Sod Inj 5000 Unit/Ml Vial) 5,000 unit SC Q12HR ANNA Stop: 05/31/25 18:14 Last Admin: 05/19/25 22:39 Dose: 5,000 unit Azithromycin 500 mg/ Sodium (Chloride) 250 mls @ 250 mls/hr IV X1 ONE Stop: 05/20/25 09:59 Propofol (Diprivan Ivpb) 1,000 mg in 100 mls @ 2.189 mls/hr IV .Q24H PRN; Protocol PRN Reason: PER PROTOCOL Stop: 06/19/25 05:17 Magnesium Sulfate (Magnesium Sulfate Ivpb) 2 gm in 50 mls @ 25 mls/hr IV X1 ONE Stop: 05/20/25 07:20 Insulin Human Lispro (Insulin Lispro (Admelog) 1 Unit/0.01 Ml Unit) 0 unit SC Q6HR ANNA; Protocol Stop: 06/18/25 17:59 Last Admin: 05/20/25 03:48 Dose: Not Given Methylprednisolone Sodium Succinate (Methylprednisolone Sod Succ 40 Mg/Ml Vial) 40 mg IVP TID [facility] Stop: 05/26/25 13:59 Last Admin: 05/19/25 22:39 Dose: 40 mg Nicotine (Nicotine Patch 21 Mg/24 Hr Patch.Td24) 21 mg TOP QDAY [facility] Stop: 06/16/25 17:44 Last Admin: 05/19/25 09:18 Dose: 21 mg Ondansetron HCl (Ondansetron Inj 2 Mg/Ml Inj 2 Ml) 4 mg IVP Q6H PRN; Protocol PRN Reason: NAUSEA OR VOMITING Stop: 06/16/25 17:59 Pantoprazole Sodium (Pantoprazole Inj 40 Mg Vial) 40 mg IVP QDAY [facility] Stop: 06/17/25 08:59 Last Admin: 05/19/25 09:16 Dose: 40 mg Sodium Chloride (Sodium Chloride Rt Breanna 0.9% 3 Ml Nebu) 3 ml INH PRN PRN PRN Reason: SOLN Stop: 06/16/25 17:30 Last Admin: 05/17/25 17:59 Dose: 3 ml Discontinued Medications Albuterol (Albuterol Rt 2.5 Mg/3 Ml Nebu) 10 mg INH X1 ONE Stop: 05/19/25 10:57 Last Admin: 05/19/25 11:39 Dose: 10 mg Azithromycin (Azithromycin 250 Mg Tablet) 500 mg PO QDAY ANNA Stop: 05/19/25 09:01 Last Admin: 05/18/25 08:09 Dose: 500 mg Olanzapine 10 mg/ Sterile (Water 2.1 ml) 0 mg IM QDAY ONE Stop: 05/18/25 21:05 Last Admin: 05/18/25 21:15 Dose: 1 dose Diphenhydramine HCl (Diphenhydramine Inj 50 Mg/Ml Vial) 50 mg IVP X1 STA Stop: 05/17/25 16:56 Last Admin: 05/17/25 17:05 Dose: 50 mg Etomidate (Etomidate Inj 2 Mg/Ml Vial 10 Ml) 20 mg IV X1 ONE Stop: 05/20/25 05:05 Fluticasone Propionate (Fluticasone [place] 0.05% 16 Gm Btl) 1 spray NASAL X1 ONE Stop: 05/18/25 19:36 Haloperidol Lactate (Haloperidol Lact Inj 5 Mg/Ml Vial) 1 mg IV X1 ONE Stop: 05/19/25 08:34 Last Admin: 05/19/25 09:10 Dose: 1 mg Hydroxyzine HCl (Hydroxyzine Inj 25 Mg/Ml Vial) 50 mg IM X1 ONE Stop: 05/18/25 19:36 Last Admin: 05/18/25 20:11 Dose: Not Given Ceftriaxone Sodium/Dextrose (Rocephin/D5w 1gm Iv Premix) 1 gm in 50 mls @ 100 mls/hr IV QDAY ANNA Stop: 05/25/25 11:47 Last Admin: 05/18/25 11:53 Dose: Not Given Ceftriaxone Sodium/Dextrose (Rocephin/D5w 1gm Iv Premix) 1 gm in 50 mls @ 100 mls/hr IV QDAY ANNA Stop: 05/25/25 11:49 Last Admin: 05/19/25 09:18 Dose: 100 mls/hr Magnesium Sulfate (Magnesium Sulfate Ivpb) 2 gm in 50 mls @ 120 mls/hr IV X1 ONE Stop: 05/18/25 17:49 Last Admin: 05/18/25 17:45 Dose: 120 mls/hr Azithromycin 500 mg/ Sodium (Chloride) 250 mls @ 250 mls/hr IV X1 ONE Stop: 05/19/25 09:11 Last Admin: 05/19/25 10:27 Dose: 250 mls/hr Cefepime HCl 2 gm/ Sodium (Chloride) 50 mls @ 100 mls/hr IV Q8HR ANNA Stop: 05/26/25 11:04 Last Admin: 05/19/25 11:20 Dose: 100 mls/hr Magnesium Sulfate (Magnesium Sulfate Ivpb) 2 gm in 50 mls @ 25 mls/hr IV X1 ONE Stop: 05/19/25 13:01 Last Admin: 05/19/25 11:46 Dose: 25 mls/hr Vancomycin HCl 1,500 mg/ (Sodium Chloride) 500 mls @ 200 mls/hr IV X1 ONE Stop: 05/19/25 13:59 Last Admin: 05/19/25 12:27 Dose: 200 mls/hr Magnesium Sulfate/Dextrose (Magnesium Sulfate Ivpb) 1 gm in 100 mls @ 300 mls/hr IV X1 ONE Stop: 05/19/25 15:04 Last Admin: 05/19/25 14:55 Dose: 300 mls/hr Dexmedetomidine/Sodium Chloride (Precedex Ivpb) 400 mcg in 100 mls @ 3.752 mls/hr IV .Q24H PRN; Protocol PRN Reason: Per PROTOCOL Stop: 06/19/25 05:09 Insulin Human Lispro (Insulin Lispro (Admelog) 1 Unit/0.01 Ml Unit) 0 unit SC [facility]; Protocol Stop: 06/17/25 16:59 Last Admin: 05/19/25 17:09 Dose: Not Given Ipratropium [place] (Ipratropium Rt 0.5 Mg/ 2.5 Ml Nebu) 1.5 mg INH X1 ONE Stop: 05/17/25 17:42 Last Admin: 05/17/25 17:58 Dose: 1.5 mg Ipratropium [place] (Ipratropium Rt 0.5 Mg/ 2.5 Ml Nebu) 1.5 mg INH X1 ONE Stop: 05/18/25 16:13 Levalbuterol HCl (Levalbuterol Rt 1.25 Mg/0.5 Ml Nebu) 10 mg INH X1 ONE Stop: 05/17/25 17:31 Last Admin: 05/17/25 17:49 Dose: Not Given Levalbuterol HCl (Levalbuterol Rt 1.25 Mg/0.5 Ml Nebu) 7.5 mg INH X1 ONE Stop: 05/17/25 17:32 Last Admin: 05/17/25 17:49 Dose: Not Given Lorazepam (Lorazepam 2 Mg/Ml Vial) 0.5 mg IVP X1 ONE Stop: 05/18/25 19:51 Last Admin: 05/18/25 19:56 Dose: 0.5 mg Lorazepam (Lorazepam 2 Mg/Ml Vial) 1 mg IVP X1 ONE Stop: 05/18/25 21:05 Last Admin: 05/18/25 21:15 Dose: 1 mg Lorazepam (Lorazepam 2 Mg/Ml Vial) 0.5 mg IVP X1 ONE Stop: 05/19/25 02:20 Last Admin: 05/19/25 02:28 Dose: 0.5 mg Lorazepam (Lorazepam 2 Mg/Ml Vial) 0.5 mg IVP Q8HR PRN PRN Reason: ANXIETY Stop: 05/24/25 07:35 Last Admin: 05/19/25 07:44 Dose: 0.5 mg Lorazepam (Lorazepam 2 Mg/Ml Vial) 1 mg IVP X1 ONE Stop: 05/19/25 10:54 Last Admin: 05/19/25 11:12 Dose: 1 mg Lorazepam (Lorazepam 2 Mg/Ml Vial) 1 mg IVP Q8HR PRN PRN Reason: ANXIETY Stop: 05/24/25 07:35 Last Admin: 05/20/25 03:42 Dose: 1 mg Methylprednisolone Sodium Succinate (Methylprednisolone Sod Succ 62.5 Mg/Ml 2ml Vial) 250 mg IVP X1 ONE Stop: 05/17/25 16:10 Last Admin: 05/17/25 17:05 Dose: 250 mg Methylprednisolone Sodium Succinate (Methylprednisolone Sod Succ 40 Mg/Ml Vial) 40 mg IVP QDAY ANNA Stop: 05/22/25 08:59 Last Admin: 05/18/25 08:08 Dose: 40 mg Methylprednisolone Sodium Succinate (Methylprednisolone Sod Succ 40 Mg/Ml Vial) 40 mg IVP BID ANNA Stop: 05/25/25 16:29 Last Admin: 05/19/25 09:17 Dose: 40 mg Pharmacy Consult (Vancomycin Pharmacy To Dose 1 Each Each) 1 each IV QDAY ANNA Stop: 06/18/25 10:59 Last Admin: 05/19/25 12:27 Dose: 1 each Rocuronium [place] (Rocuronium Inj 10 Mg/Ml Vial 10 Ml) 75 mg 1 mg/kg (75 mg) IV X1 ONE Stop: 05/20/25 05:05 Fluticasone/Salmeterol (Fluticasone/Salmeterol 100/50 14 Dose Inh) 1 puff INH BIDRT ANNA Stop: 06/16/25 18:59 Last Admin: 05/18/25 19:12 Dose: 1 puff Sodium Chloride (Sodium Chloride Rt Breanna 0.9% 3 Ml Nebu) 3 ml INH PRN PRN PRN Reason: SOLN Stop: 06/16/25 16:08 Sodium Chloride (Sodium Chloride Rt 10% 15 Ml Nebu) 5 ml INH X1 ONE Stop: 05/17/25 19:25 Sodium Chloride (Sodium Chloride Rt 10% 15 Ml Nebu) 5 ml INH X1 ONE Stop: 05/19/25 08:15 Last Admin: 05/19/25 11:32 Dose: Not Given Assessment & Plan Plan Patient is a 60 years old female with PMH of COPD, chronic bronchitis, active smoker 1ppd for >40y, methamphetamine use initially presented to the ED on 05/17 for evaluation of worsening cough and SOB for two days. She was admitted and started on BiPAP, breathing treatment and IV steroids. Her condition has failed to improve and today she became agitated while on BiPAP, her ABG showed worsening acidosis with pH 7.22, severe hypercapnia with pCO2 91. Decision was made to upgrade patient to ICU and intubate. Neuro: #Medical sedation. Started on propofol and fentanyl with RAAS -2. Cardiovascular: No active problem. Respiratory: #Acute Hypoxic Respiratory Failure with severe hypercapnia. #COPD exacerbation. Patient presented with 2d hx of worsening cough and SOB. Also admits to greenish phlegm with coughing worse at nights. In ED, patient received methylprednisolone 250mg x1, ipratropium 1.5mg inh, On admission: ABG: pH 7.39, pCO2 49, pO2 149, bicarb 29, O2 sat 100%. CXR: no interval pneumonia or pulmonary edema. EKG: sinus tachycardia. Negative COVID 19, influenza A & B. Antibiotics were discontinued by primary team no infective source, Azithromycin 500mg for three days (05/18-). On ICU admission: ABG pH 7.22, pCO2 91, PaO2 129, which shows worsened CO2 retention compared to admission and prior day. On exam severely reduced air movement, patient is agitated and is not following commands. Patient was intubated with etomidate and rocuronium. Plan: - Duonebs Q4h scheduled, plus Q2h PRN SOB. - Methylprednisolone IV to 40 mg 3 times daily. - Guaifenecin PO 100mg bid, ordered without dextromethorphan to sustain tussive reflex beneficial for airway clearance. - Chest physiotherapy daily. Gastrointestinal: #Transaminitis, improving. LFT's persistently elevated on successive labs: AST 37/40, and ALT 60/56. Liver ultrasound showed cholelithiasis. Plan: -CTM LFT's. -hepatitis panel ordered. Renal: No active problem. Endocrine: #Prediabetes. Hgb A1c 6.2. Glc 196 in AM labs 05/18. Plan: -Insulin lispro SS. Infectious Disease: No active problem. Hematology/Oncology: #Leukocytosis. Likely due to IV steroids, will monitor. Other: #Methamphetamine Use Disorder. #Chronic Smoker. Patient reports to have smoked 1 PPD >40y. Also reports daily methamphetamine use. Plan: -Nicotine patch 21mg. -Referral to director of social media marketing. Diet: NPO. Lines: Peripheral x2. Tubes: NG. DVT prophylaxis: Heparin SC Q12H. GI prophylaxis: Protonix. Code status: FULL CODE. Disposition: upgraded to ICU. Plan of care discussed with ICU attending Dr. Roman. Capo Nicholson MD, PGY 3. Disclaimer: This note was dictated by speech recognition. Minor errors in heavy repairer may be present due to voice recognition software. Attending Provider Attestation/Addendum Leonardo, Radha Roman DO, attest that I was physically present for the vega portions of the service and evaluated the patient with the resident and I reviewed and discussed the case with the resident and agree with the resident's findings and plans of care as documented above Patient is a 60-year-old female with past medical history of COPD, bronchitis, chronic tobacco use of over 40 years, meth use who presented to the ED due to worsening cough and shortness of breath for 2 days. She had worsening productive sputum and cough after visiting her grand daughter days prior to presentation. Patient was found to have low-grade temperature of 100.3, tachycardia of 110 and tachypnea of 39. Patient had an ABG on presentation with pH of 7.39, pCO2 49, PaO2 of 149 and bicarb of 29. Patient was subsequently placed on BiPAP due to worsening respiratory failure secondary to both hypoxia and hypercapnia. Patient was started on treatment for acute COPD exacerbation. However, course of treatment was complicated by agitation requiring anxiolytics and antipsychotics. Patient continued to have worsening CO2 retention. This evening, rapid response was called due to worsening agitation and change in mental status. Patient remains very confused, but lethargic and difficult to arouse. ABG had been drawn showing pH is 7.22, pCO2 91 and PaO2 129. She had received Ativan about 20 minutes prior to the ABG. She continues to have scattered wheezing with poor air movement. Patient was giving a breathing treatment, but became very agitated again. Due to persistent confusion, agitation, inability to comply with BiPAP mask and worsening respiratory status, decision was made to transfer patient to ICU and intubate patient. Patient remains on Solu-Medrol 40 mg IV 3 times daily, will start propofol for sedation and continue with azithromycin and breathing treatments.
--- NOTE | 2025-05-20 05:25 | PD.RESPROC ---
PROCEDURES: Procedure Date / Time 05/20/25 0525 Intubation Indication(s): inability to protect airway Informed consent obtained: procedure done urgently Time out done, and the following verified: correct patient, side and site, procedure, patient position and implants and/or equipment Sedative: etomidate Mg given: 20 Paralytic: rocuronium Mg given: 75 Laryngoscope: fiber optic video scope Assist device used: fiber optic device ET tube size: 7.5 ET tube uncuffed: No Tube secured depth (cm): 22 Tube secured location: lips Tube placement confirmation: visualized tube passing through cords, equal breath sounds bilaterally, no breath sounds over epigastrium and confirmation by capnometry Patient tolerated procedure: well and no complications EBL(ml): 0 Intubation complications: none Additional comments: Procedure was performed under the supervision of ED attending Dr. Paige Whitmore, PGY-1
[2025-05-20] MEDS: PROPOFOL 1,000 MG IVPB 1,000 MG/100 ML VIAL 2.189 MG IV ×2 (05:26→22:35)
--- NOTE | 2025-05-20 05:33 | PC.NURSE ---
Patient became increasingly agitated, was trying to get up and pull off bipap. PRN Ativan given per order. Patient continued to be agitated and impulsive and kept trying to remove bipap. The RT was in the room and was trying to get bipap back on the patient but patient was fighting us; she then quickly switched to oxymask. Patient desated to 60s and SOUND RECORDIST was called. As soon as doctors arrived, patient was transferred to ICU for intubation. Tried to call son via a number on file but was unable to.
--- NOTE | 2025-05-20 05:34 | EVENTNT_ITS ---
Documentation for date of: 05/20/25 Event Note Event Note: Rapid response was called around 5:15 am due to agitation and desaturation. Patient has been on Bipap due to hypercapnia and had been lethargic throughout the night. Patient prior to RR had a dose of ativan for agitation and was more lethargic and less responsive. Patient afterwards became agitated and trying to pull off her bipap mask and desaturated to the mid 70s. Patient's ABG prior to the rapid also showed worsening respiratory acidosis and hypercapnia. At this time given worsening hypoxia and unable to comply with bipap decision was made to intubate the patient and upgrade to the ICU. Case disclosed with Attending Dr. Jessie Kolb PGY2 Disclaimer: Even though this this note was dictated by speech recognition and even though it was carefully revised there may still be minor errors in cooker meal due to voice recognition software.
[2025-05-20 06:12] LABS: Basophils # (Auto) 0.0 Thou/mm3 (0.0-0.2); Basophils % (Auto) 0 % (0-2.5); Eosinophils # (Auto) 0.0 Thou/mm3 (0.0-0.5); Eosinophils % (Auto) 0 % (0-10); Hematocrit 50.1 % (36.0-46.0); Hemoglobin 15.2 g/dL (12.0-16.0); Immature Granulocytes Auto 0.08 Thou/mm3 (0.00-0.00); Lymphocytes # (Auto) 0.7 Thou/mm3 (1.0-4.8); Lymphocytes % (Auto) 5 % (10-50); Mean Corpuscular HGB Conc 30.3 g/dl (31.0-37.0); Mean Corpuscular Hemoglobin 27.1 pg (25.0-35.0); Mean Corpuscular Volume 89 fL (80-100); Monocytes # (Auto) 0.8 Thou/mm3 (0.0-0.8); Monocytes % (Auto) 6 % (0-12); Neutrophils # (Auto) 11.5 Thou/mm3 (1.8-7.7); Neutrophils % (Auto) 88 % (37-80); Nucleated Red Blood Cell # 0.00 Thou/mm3 (0.00-0.00); Nucleated Red Blood Cell % 0 /100 WBC (0); Platelet Count 271 Thou/mm3 (140-440); RDW Standard Deviation 44.6 fL (36.4-46.3); Red Blood Count 5.61 Miln/mm3 (4.00-5.20); White Blood Count 13.0 Thou/mm3 (3.6-11.0)
[2025-05-20 06:22] LABS: Base Excess 7 (-3-3); HCO3 36 mEq/L (20-26); Inspired Oxygen, FIO2 100 %; O2 Saturation 100 % (91-98); PCO2 66 mmHg (32.0-48.0); PO2 285 mmHg (83-108); pH, Arterial 7.34 (7.35-7.45)
--- NOTE | 2025-05-20 06:29 | EVENTNT_ITS ---
Documentation for date of: 05/20/25 Event Note Event Note: At 0544, the patient's son, Rito Cannon ([phone]) was contacted regarding the patient's intubation as this was identified as the patient's surrogate decision maker as noted on drug abuse social worker note on 05/18/2025. It was explained to the patient's son that because of the patient's agitation and desaturation as noted in the event note for the rapid response at 0515, and because the patient is noted to be full code as per the EMR and the signout received by the night team, the patient was intubated and transferred to the ICU for further care. Questions regarding intubation asked by the patient's son were answered and the son stated that he is on his way to see his mother at the conclusion of the call. Patient plan of care was discussed with attending physician Dr. Jessie Whitmore, PGY1
[2025-05-20 06:32] LABS: Lactate (Lactic Acid) 1.2 mMol/L (0.4-2.0)
[2025-05-20 06:34] LABS: Allen Test Performed/OK; Puncture Site Right Radial
[2025-05-20] MEDS: fentaNYL 2,500 MCG/250 ML BAG 2,500 MCG/250 ML BAG 7.5 MCG IV (06:36)
--- NOTE | 2025-05-20 06:59 | ESPR_ITS ---
<Statement entered by José Willis MD - 05/20/25 18:18> I have reviewed the note and agree with the resident's assessment & plan with exceptions as below. I have personally reviewed labs, imaging, home meds/prior records, examined the patient, formulated and discussed management plan with the IM team. Pt examined at bedside today. At this time, ABG reordered for 12 pm which showed improvement in pH, however still remains to be elevated in ~70s. Will continue with fentanyl, Precedex and propofol to RASS goal of 1. Patient will continue to be on volume control at this time. Will anticipate with spontaneous awakening trial and breathing trial for activation tomorrow. Repeat hematology and chemistry in AM. Initiated tube feeds. Continue with azithromycin, breathing treatments and Solu-Medrol. Will continue for total volume around 300 respiratory rate of 20 with minute ventilation around 6. Anticipate extubation tomorrow if patient continues to improve. Added hydromorphone for pain. AM triglyceride level. 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 #Respiratory Acidosis without adequate renal compensation #COPD exacerbation. #Elevated Transaminases #Cholelithiasis #Prediabetes #Leukocytosis- downtrending #Methamphetamine Use Disorder. #Chronic Smoker. José Willis, PGY-2 Internal Medicine Documentation for date of: 05/20/25 Subjective Subjective Interval history: Patient is a 60 years old female with PMH of COPD, chronic bronchitis, active smoker 1ppd for >40y, methamphetamine use initially presented to the ED on 05/17 for evaluation of worsening cough and SOB for two days. She was admitted and started on BiPAP, breathing treatment and IV steroids. Her condition has failed to improve and today she became agitated while on BiPAP, her ABG showed worsening acidosis with pH 7.22, severe hypercapnia with pCO2 91. Decision was made to upgrade patient to ICU and intubate. Family was contacted. 05/20/2025: patient was upgraded to the ICU, given intubation and severe hypercapnia and acidemia. Attempted spontaneous breathing trial this morning, but she was very agitated, unable to follow commands, and so sedation was reinitiated with prop, fent, and precedex. will reattempt to wean sedation and attempt SBT tomorrow. Exam Vital Signs Temp Pulse Resp BP Pulse Ox O2 Del Method O2 Flow Rate 97.8 F 106 H 32 H 200/120 H 100 BiPAP 40 05/19/25 20:00 05/20/25 05:33 05/20/25 05:25 05/20/25 05:33 05/20/25 05:33 05/20/25 04:00 05/19/25 16:00 FiO2 100 05/20/25 05:33 Narrative Exam Gen: Well-developed and well-nourished female intubated and mech ventilated. HEENT: NCAT, PERRLA, EOMI, MMM, anicteric conjunctivae. CVS: normal S1 and S2. Regular tachycardia. No M/R/G. Resp: mechanically ventilated, intubated Abd: soft, non-tender, non-distended. BS+ in all 4 quadrants. MSK: Good ROM in BUE & BLE. No edema or rash. Neuro: limited exam due to mental status. Objective Labs 05/22/25 04:07 05/22/25 04:07 Labs: Laboratory Results - last 24 hr 05/19/25 05/19/25 05/19/25 12:00 13:35 15:50 WBC RBC Hgb Hct MCV MCH MCHC RDW Std Deviation Plt Count Neut % (Auto) Lymph % (Auto) [place] % (Auto) Eos % (Auto) Baso % (Auto) Neut # (Auto) Lymph # (Auto) [place] # (Auto) Eos # (Auto) Baso # (Auto) Immature Gran # (Auto) Absolute Nucleated RBC Immature Gran % Nucleated RBC % Puncture Site Right Radial Right Radial ABG pH 7.20 L D 7.29 L ABG pCO2 85 H* D 69 H D ABG pO2 95 75 L D ABG HCO3 33 H 33 H ABG O2 Saturation 97 95 ABG Base Excess 2 4 H FiO2 40 40 Lactic Acid RSV Rapid Negative 05/20/25 05/20/25 05/20/25 04:06 05:56 06:07 WBC 13.0 H D RBC 5.61 H Hgb 15.2 Hct 50.1 H MCV 89 MCH 27.1 MCHC 30.3 L RDW Std Deviation 44.6 Plt Count 271 D Neut % (Auto) 88 H Lymph % (Auto) 5 L [place] % (Auto) 6 Eos % (Auto) 0 Baso % (Auto) 0 Neut # (Auto) 11.5 H Lymph # (Auto) 0.7 L [place] # (Auto) 0.8 Eos # (Auto) 0.0 Baso # (Auto) 0.0 Immature Gran # (Auto) 0.08 H Absolute Nucleated RBC 0.00 Immature Gran % 1 H Nucleated RBC % 0 Puncture Site Right Radial Right Radial ABG pH 7.22 L 7.34 L D ABG pCO2 91 H* D 66 H D ABG pO2 129 H D 285 H D ABG HCO3 38 H 36 H ABG O2 Saturation 97 100 H ABG Base Excess 6 H 7 H FiO2 21 100 Lactic Acid 1.2 RSV Rapid ABG Interpretation ABG results: 05/17/25 05/18/25 05/18/25 18:19 09:28 15:37 ABG pH 7.39 7.32 L 7.34 L ABG pCO2 49 H 58 H 59 H ABG pO2 149 H 82 L D 111 H D ABG HCO3 29 H 30 H 31 H ABG O2 Saturation 100 H 96 99 H ABG Base Excess 3 2 4 H 05/18/25 05/18/25 05/19/25 21:14 23:52 02:35 ABG pH 7.27 L 7.28 L 7.33 L ABG pCO2 68 H 68 H 62 H ABG pO2 77 L D 83 79 L ABG HCO3 32 H 32 H 32 H ABG O2 Saturation 95 96 95 ABG Base Excess 2 3 4 H 05/19/25 05/19/25 05/20/25 13:35 15:50 04:06 ABG pH 7.20 L D 7.29 L 7.22 L ABG pCO2 85 H* D 69 H D 91 H* D ABG pO2 95 75 L D 129 H D ABG HCO3 33 H 33 H 38 H ABG O2 Saturation 97 95 97 ABG Base Excess 2 4 H 6 H 05/20/25 06:07 ABG pH 7.34 L D ABG pCO2 66 H D ABG pO2 285 H D ABG HCO3 36 H ABG O2 Saturation 100 H ABG Base Excess 7 H Quality Measures Quality Measures VTE prophylaxis Assessment & Plan Assessment Current Active Medications: Generic Name Dose Route Start Last Admin Trade Name Freq PRN Reason Stop Dose Admin Acetaminophen 650 mg 05/17/25 18:00 05/17/25 18:55 Acetaminophen 325 Mg Tablet PO 06/16/25 17:59 650 mg Q6H PRN Administration Fever >100 Acetaminophen 650 mg 05/17/25 18:00 Acetaminophen 325 Mg Tablet PO 06/16/25 17:59 Q6H PRN PAIN SCALE 1-3 (mild Hydrocodone Bitart/Acetaminophen 1 tab 05/17/25 18:00 Hydrocodone/Apap 5/325 Tablet PO 05/22/25 17:59 Q4HR PRN PAIN SCALE 4-6 (Moderate Albuterol/Ipratropium 3 ml 05/17/25 19:00 05/20/25 02:03 Albuterol/Ipratropium (Duoneb) Rt Breanna 3 Ml Nebu INH 06/16/25 18:59 3 ml Q4HRRT ANNA Administration Albuterol/Ipratropium 3 ml 05/17/25 18:13 05/18/25 19:10 Albuterol/Ipratropium (Duoneb) Rt Breanna 3 Ml Nebu INH 06/16/25 18:12 3 ml Q2HR PRN Administration SHORTNESS OF BREATH OR WHEEZE Atorvastatin Calcium 40 mg 05/18/25 21:00 05/19/25 22:40 Atorvastatin Calcium 20 Mg Tablet PO 06/17/25 20:59 Not Given HS ANNA Dextrose 25 ml 05/18/25 12:51 Dextrose 50%-Water Inj 50 Ml Syringe IV 06/17/25 12:50 Q15MIN PRN BG 50-70 responsive npo pt Dextrose 50 ml 05/18/25 12:51 Dextrose 50%-Water Inj 50 Ml Syringe IV 06/17/25 12:50 Q15MIN PRN BG <50 OR BG <70 & pt unresponsive Gabapentin 300 mg 05/19/25 10:55 05/20/25 06:38 Gabapentin 300 Mg Capsule PO 06/18/25 10:54 Not Given TID ANNA Glucagon 1 mg 05/18/25 12:51 Glucagon Inj 1 Mg Vial IM Q15MIN PRN BG <70, and no IV access Guaifenesin 100 mg 05/17/25 21:00 05/19/25 22:40 Guaifenesin Syrup 200 Mg/10 Ml Udc PO 06/16/25 20:59 Not Given BID ANNA Protocol Heparin Sodium (Porcine) 5,000 unit 05/17/25 18:15 05/19/25 22:39 Heparin Sod Inj 5000 Unit/Ml Vial SC 05/31/25 18:14 5,000 unit Q12HR ANNA Administration Azithromycin 500 mg/ Sodium 250 mls @ 250 mls/hr 05/20/25 09:00 Chloride IV 05/20/25 09:59 X1 ONE Propofol 1,000 mg in 100 mls @ 2.189 mls/hr 05/20/25 05:18 05/20/25 06:30 Diprivan Ivpb IV 06/19/25 05:17 40 mcg/kg/min .Q24H PRN 17.516 mls/hr PER PROTOCOL Titration Protocol 5 MCG/KG/MIN Fentanyl Citrate 2,500 mcg in 250 mls @ 2.5 mls/hr 05/20/25 06:28 05/20/25 06:36 Sublimaze Inj 2,500 Mcg/250 Ml Bag IV 05/25/25 06:27 75 mcg/hr .Q24H PRN 7.5 mls/hr PER PROTOCOL Administration Protocol 25 MCG/HR Insulin Human Lispro 0 unit 05/19/25 18:00 05/20/25 06:11 Insulin Lispro (Admelog) 1 Unit/0.01 Ml Unit SC 06/18/25 17:59 Not Given Q6HR ANNA Protocol Methylprednisolone Sodium Succinate 40 mg 05/19/25 14:00 05/20/25 06:40 Methylprednisolone Sod Succ 40 Mg/Ml Vial IVP 05/26/25 13:59 40 mg TID ANNA Administration Nicotine 21 mg 05/17/25 17:45 05/19/25 09:18 Nicotine Patch 21 Mg/24 Hr Patch.Td24 TOP 06/16/25 17:44 21 mg QDAY ANNA Administration Ondansetron HCl 4 mg 05/17/25 18:00 Ondansetron Inj 2 Mg/Ml Inj 2 Ml IVP 06/16/25 17:59 Q6H PRN NAUSEA OR VOMITING Protocol Pantoprazole Sodium 40 mg 05/18/25 09:00 05/19/25 09:16 Pantoprazole Inj 40 Mg Vial IVP 06/17/25 08:59 40 mg QDAY ANNA Administration Sodium Chloride 3 ml 05/17/25 17:31 05/17/25 17:59 Sodium Chloride Rt Breanna 0.9% 3 Ml Nebu INH 06/16/25 17:30 3 ml PRN PRN Administration SOLN Plan is a 60 years old female with PMH of COPD, chronic bronchitis, active smoker 1ppd for >40y, methamphetamine use initially presented to the ED on 05/17 for evaluation of worsening cough and SOB for two days. She was admitted and started on BiPAP, breathing treatment and IV steroids. Her condition has failed to improve and today she became agitated while on BiPAP, her ABG showed worsening acidosis with pH 7.22, severe hypercapnia with pCO2 91. Decision was made to upgrade patient to ICU and intubate. Neuro: #Medical sedation. Started on propofol, precedex, and fentanyl with RAAS -1. dilaudid 0.5 prn for agitation Cardiovascular: No active problem. HfpEF in setting of chronic meth use - Echo 2024, with EF 55-60% Respiratory: #Acute Hypoxic Respiratory Failure with severe hypercapnia. #Respiratory Acidosis #COPD exacerbation. Patient presented with 2d hx of worsening cough and SOB. Also admits to greenish phlegm with coughing worse at nights. In ED, patient received methylprednisolone 250mg x1, ipratropium 1.5mg inh, On admission: ABG: pH 7.39, pCO2 49, pO2 149, bicarb 29, O2 sat 100%. CXR: no interval pneumonia or pulmonary edema. EKG: sinus tachycardia. Negative COVID 19, influenza A & B. Antibiotics were discontinued by primary team no infective source, Azithromycin 500mg for three days (05/18-). On ICU admission: ABG pH 7.22, pCO2 91, PaO2 129, which shows worsened CO2 retention compared to admission and prior day. she is intubated and sedated. 05/20 1400 Abg 7.31 and pco2 71. Plan: - Duonebs Q4h scheduled, plus Q2h PRN SOB. - Methylprednisolone IV to 40 mg 3 times daily. - Guaifenecin PO 100mg bid, ordered without dextromethorphan to sustain tussive reflex beneficial for airway clearance. - Chest physiotherapy- held - Vent settings, on SIMV. Gastrointestinal: #Hepatitis, improving. #cholelithiasis LFT's persistently elevated on successive labs: AST 37/40, and ALT 60/56. Liver ultrasound showed cholelithiasis. Plan: -CTM LFT's. -hepatitis panel nonreactive. Nutrition Vital 1.2 at 20 ml/hr via OG tube by pump. Advance 10 ml every 8 hrs to goal rate of 50 ml/hr x 24 hrs. If no IV fluids, water flushes of 25 ml/hr (or per MD). Provides: 1440 kcal, 90 g prot, 973 ml free water, 1200 ml total volume. Renal: No active problem. Endocrine: #Prediabetes. Hgb A1c 6.2 BG 130-150 Plan: -Insulin lispro SS. Infectious Disease: No active problem. Hematology/Oncology: #Leukocytosis- downtrending Likely due to IV steroids, will monitor. Other: #Methamphetamine Use Disorder. #Chronic Smoker. Patient reports to have smoked 1 PPD >40y. Also reports daily methamphetamine use. Plan: -Nicotine patch 21mg. -Referral to social media specialist. Diet: NPO. started tube feeds per NG tube Vital 1.2 at 20 ml/hr via OG tube by pump. Advance 10 ml every 8 hrs to goal rate of 50 ml/hr x 24 hrs. If no IV fluids, water flushes of 25 ml/hr (or per MD). Provides: 1440 kcal, 90 g prot, 973 ml free water, 1200 ml total volume. Lines: Peripheral x2. Tubes: NG. ET tube, Murray catheter DVT prophylaxis: Heparin SC Q12H. GI prophylaxis: Protonix. Code status: FULL CODE. Disposition: upgraded to ICU. Case disclosed with my senior resident Dr. Willis and my Attending Dr. Elli Pickens MD PGY1 Attending Provider Attestation/Addendum Patient seen and examined with above resident, Ashley Pickens MD. I agree with the findings, assessment, and plan of care as document except for any differences below. Patient failed BiPAP overnight requiring intubation. Patient weaned off of sedation though continues to have significant dyspnea requiring reinitiation of therapy. Patient remains on bronchodilators, steroids, and magnesium boluses as needed. Empiric antibiotics have been instituted. Further discussion with family suggest the patient has advanced pulmonary disease that may be further exacerbated by recent exposure to viral illness. Her prognosis overall remains guarded at this time. Her son when the patient became altered did reverse her own decision for DNI status overnight which prompted intubation by medicine staff overnight. Patient did tolerate SAT later on the day with use of Precedex and was able to follow commands per resident report. Will reattempt plan for SAT/SBT tomorrow and try to extubate back to BiPAP to help respect the patient's underlying wishes as well as help family make final decision making about plan of care. Role of tracheostomy may be warranted should the patient's family determine if they would like to continue or reattempted the patient should she fail. Total critical care time: Personally spent 40 minutes for review of physiologic parameters, directing plan of care throughout the day, coordination of care, and counseling patient's family at bedside. This is exclusive of time spent teaching on staff or performing any separate billable procedures. Patient remains at significant risk for further morbidity and mortality warranting close monitoring and care when available in the ICU. Critical care services required for acute on chronic hypercapnic respiratory failure, COPD with acute exacerbation, methamphetamine abuse, acute encephalopathy.
[2025-05-20 07:02] LABS: Alanine Aminotransferase 55 U/L (10-49); Albumin, Serum 4.5 gm/dL (3.4-4.8); Albumin/Globulin Ratio 1.6 (1.2-2.2); Alkaline Phosphatase 94 U/L (46-116); Anion Gap 10 (7-16); Aspartate Amino Transferase 36 U/L (0-34); BUN/Creatinine Ratio 22 Ratio (12-20); Bilirubin,Total 0.5 mg/dL (0.3-1.2); Blood Urea Nitrogen 20 mg/dL (9-23); Calcium 9.1 mg/dL (8.3-10.6); Calcium (Corrected) 9.1 mg/dL (8.5-10.1); Carbon Dioxide 34.4 mMol/L (20.0-31.0); Chloride 100 mMol/L (98-107); Creatinine (Component) 0.9 mg/dL (0.6-1.3); Estimated Creatinine Clearance 61.4 mL/min (>60); Globulin 2.9 gm/dL (2.3-3.5); Glucose 145 mg/dL (74-106); Magnesium 3.2 mg/dL (1.6-2.6); Osmolality,Calculated 292 (275-295); Phosphorous 5.7 mg/dL (2.4-5.1); Potassium 5.0 mMol/L (3.4-5.1); Sodium 144 mMol/L (136-145); Total Protein 7.4 gm/dL (5.7-8.2); Troponin I < 0.020 ng/mL (0.0-0.045); eGFR > 60 See Note
[2025-05-20 07:41] LABS: Hepatitis A Antibody IgM Non Reactive (Non React); Hepatitis B Core Antibody IgM Non Reactive (Non React); Hepatitis B Surface Antigen Non Reactive (Non React); Hepatitis C Antibody Non Reactive (Non React)
[2025-05-20] MEDS: SEVELAMER CARBONATE 800 MG TABLET PO (08:41)
[2025-05-20] MEDS: NICOTINE PATCH 21 MG/24 HR PATCH.TD24 TOP (08:42)
[2025-05-20] MEDS: HEPARIN SOD INJ 5000 UNIT/ML VIAL SC ×2 (08:42→21:29)
[2025-05-20] MEDS: AZITHROMYCIN INJ 500 MG in SODIUM CHLORIDE 0.9% 250 ML 250 ML 250 MG IV (09:14)
--- NOTE | 2025-05-20 09:34 | PC.DIETICIAN ---
Nutrition prescription If EN is indicated, consider: Vital 1.2 at 20 ml/hr via OG tube by pump. Advance 10 ml every 8 hrs to goal rate of 50 ml/hr x 24 hrs. If no IV fluids, water flushes of 25 ml/hr (or per MD). Provides: 1440 kcal, 90 g prot, 973 ml free water, 1200 ml total volume.
[2025-05-20] MEDS: DEXMEDETOMIDINE 400 MCG IVPB 400 MCG/100 ML BAG IV (09:48)
[2025-05-20] MEDS: fentaNYL CIT INJ 50 mCg/ML AMP 2ML 25 MCG IVP (09:59)
[2025-05-20] MEDS: PROPOFOL 1,000 MG IVPB 1,000 MG/100 ML VIAL 13.137 MG IV (11:15)
[2025-05-20] MEDS: HYDROmorphone INJ 2 MG/ML VIAL 0.5 MG IVP (12:10)
[2025-05-20 14:06] LABS: Triglycerides 284 mg/dL (30-150)
[2025-05-20 14:23] LABS: Base Excess 7 (-3-3); HCO3 36 mEq/L (20-26); Inspired Oxygen, FIO2 60 %; O2 Saturation 100 % (91-98); PCO2 71 mmHg (32.0-48.0); PO2 177 mmHg (83-108); pH, Arterial 7.31 (7.35-7.45)
[2025-05-20 14:28] LABS: Allen Test Not Performed; Puncture Site Right Radial
--- NOTE | 2025-05-20 15:19 | PC.SS ---
Rounding Note: Patient is intubated/sedated. No pressor support. OG tube feedings in place. Afebrile. Patient on restraints. Possible extubation tomorrow.
[2025-05-20] MEDS: DEXMEDETOMIDINE 400 MCG IVPB 400 MCG/100 ML BAG 14.597 MCG IV (16:09)
[2025-05-20] MEDS: RINGERS LACTATED 500 ML 500 ML 999 ML IV (16:47)
[2025-05-20] MEDS: ALBUMIN HUMAN-KJDA 25% IVPB 25 GM/100 ML BTL IV (16:50)
--- NOTE | 2025-05-20 17:07 | EKG_ITS ---
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
[2025-05-20] MEDS: RINGERS LACTATED 1000 ML 1,000 ML 999 ML IV (17:30)
[2025-05-20 17:54] LABS: Lactate (Lactic Acid) 1.7 mMol/L (0.4-2.0)
[2025-05-20 17:55] LABS: Basophils # (Auto) 0.0 Thou/mm3 (0.0-0.2); Basophils % (Auto) 0 % (0-2.5); Eosinophils # (Auto) 0.0 Thou/mm3 (0.0-0.5); Eosinophils % (Auto) 0 % (0-10); Hematocrit 35.4 % (36.0-46.0); Hemoglobin 10.9 g/dL (12.0-16.0); Immature Granulocytes Auto 0.05 Thou/mm3 (0.00-0.00); Lymphocytes # (Auto) 0.9 Thou/mm3 (1.0-4.8); Lymphocytes % (Auto) 10 % (10-50); Mean Corpuscular HGB Conc 30.8 g/dl (31.0-37.0); Mean Corpuscular Hemoglobin 27.7 pg (25.0-35.0); Mean Corpuscular Volume 90 fL (80-100); Monocytes # (Auto) 0.8 Thou/mm3 (0.0-0.8); Monocytes % (Auto) 9 % (0-12); Neutrophils # (Auto) 7.1 Thou/mm3 (1.8-7.7); Neutrophils % (Auto) 81 % (37-80); Nucleated Red Blood Cell # 0.00 Thou/mm3 (0.00-0.00); Nucleated Red Blood Cell % 0 /100 WBC (0); Platelet Count 214 Thou/mm3 (140-440); RDW Standard Deviation 44.1 fL (36.4-46.3); Red Blood Count 3.94 Miln/mm3 (4.00-5.20); White Blood Count 8.7 Thou/mm3 (3.6-11.0)
[2025-05-20 18:34] LABS: Alanine Aminotransferase 31 U/L (10-49); Albumin, Serum 7.2 gm/dL (3.4-4.8); Albumin/Globulin Ratio 2.5 (1.2-2.2); Alkaline Phosphatase 49 U/L (46-116); Anion Gap 18 (7-16); Aspartate Amino Transferase 15 U/L (0-34); BUN/Creatinine Ratio 25 Ratio (12-20); Bilirubin,Total 0.2 mg/dL (0.3-1.2); Blood Urea Nitrogen 28 mg/dL (9-23); Calcium 7.2 mg/dL (8.3-10.6); Calcium (Corrected) 7.2 mg/dL (8.5-10.1); Carbon Dioxide 29.4 mMol/L (20.0-31.0); Chloride 96 mMol/L (98-107); Creatinine (Component) 1.1 mg/dL (0.6-1.3); Estimated Creatinine Clearance 49.1 mL/min (>60); Globulin 2.9 gm/dL (2.3-3.5); Glucose 112 mg/dL (74-106); Magnesium 2.2 mg/dL (1.6-2.6); Osmolality,Calculated 291 (275-295); Phosphorous 4.2 mg/dL (2.4-5.1); Potassium 4.5 mMol/L (3.4-5.1); Sodium 143 mMol/L (136-145); Total Protein 10.1 gm/dL (5.7-8.2); Troponin I < 0.020 ng/mL (0.0-0.045); eGFR 57 See Note
[2025-05-20] MEDS: POLYETHYLENE GLYCOL 17 GM PACKET NG (19:29)
[2025-05-20] MEDS: SENNOSIDES SYRUP 8.8 MG/5 ML UDC NG (19:29)
[2025-05-20] MEDS: CALCIUM GLUC/NS 1000MG IVPB 1,000 MG/50 ML BAG 50 MG IV (19:30)
[2025-05-20 19:37] LABS: Base Excess 7 (-3-3); HCO3 37 mEq/L (20-26); Inspired Oxygen, FIO2 50 %; O2 Saturation 62 % (91-98); PCO2 87 mmHg (32.0-48.0); pH, Arterial 7.24 (7.35-7.45)
[2025-05-20 19:40] LABS: PO2 36 mmHg (83-108)
[2025-05-20 19:41] LABS: Allen Test Performed/OK; Puncture Site Right Radial
[2025-05-20 20:01] LABS: Basophils # (Auto) 0.0 Thou/mm3 (0.0-0.2); Basophils % (Auto) 0 % (0-2.5); Eosinophils # (Auto) 0.0 Thou/mm3 (0.0-0.5); Eosinophils % (Auto) 0 % (0-10); Hematocrit 43.5 % (36.0-46.0); Hemoglobin 12.9 g/dL (12.0-16.0); Immature Granulocytes Auto 0.06 Thou/mm3 (0.00-0.00); Lymphocytes # (Auto) 1.0 Thou/mm3 (1.0-4.8); Lymphocytes % (Auto) 10 % (10-50); Mean Corpuscular HGB Conc 29.7 g/dl (31.0-37.0); Mean Corpuscular Hemoglobin 26.7 pg (25.0-35.0); Mean Corpuscular Volume 90 fL (80-100); Monocytes # (Auto) 0.9 Thou/mm3 (0.0-0.8); Monocytes % (Auto) 9 % (0-12); Neutrophils # (Auto) 8.1 Thou/mm3 (1.8-7.7); Neutrophils % (Auto) 81 % (37-80); Nucleated Red Blood Cell # 0.00 Thou/mm3 (0.00-0.00); Nucleated Red Blood Cell % 0 /100 WBC (0); Platelet Count 245 Thou/mm3 (140-440); RDW Standard Deviation 44.1 fL (36.4-46.3); Red Blood Count 4.84 Miln/mm3 (4.00-5.20); White Blood Count 10.0 Thou/mm3 (3.6-11.0)
[2025-05-20 20:25] LABS: Base Excess 7 (-3-3); HCO3 36 mEq/L (20-26); Inspired Oxygen, FIO2 50 %; O2 Saturation 100 % (91-98); PCO2 77 mmHg (32.0-48.0); PO2 159 mmHg (83-108); pH, Arterial 7.28 (7.35-7.45)
[2025-05-20 20:26] LABS: Allen Test Performed/OK; Puncture Site Left Radial
[2025-05-20 21:09] LABS: Lactate (Lactic Acid) 1.9 mMol/L (0.4-2.0)
[2025-05-20 21:14] LABS: Beta Hydroxybutyrate 0.1 mmol/L (<0.6)
[2025-05-20] MEDS: guaiFENesin SYRUP 200 MG/10 ML UDC 100 MG GT (21:46)
[2025-05-20] MEDS: ATORVASTATIN CALCIUM 20 MG TABLET 40 MG GT (21:48)
[2025-05-21] VITALS (72 sets, daily range): BP systolic 87–199; BP diastolic 49–122; PULSE 60–111; RESP 7–34; TEMP 35.6–37.2; O2SAT 82–100; BMI 30.2
[2025-05-21] MEDS: DEXMEDETOMIDINE 400 MCG IVPB 400 MCG/100 ML BAG 10.947 MCG IV (00:37)
[2025-05-21] MEDS: ALBUTEROL/IPRATROPIUM (Duoneb) RT SOL 3 ML NEBU INH ×5 (02:28→22:46)
--- NOTE | 2025-05-21 05:00 | XR_ITS ---
EXAMINATION: AP chest single view TECHNIQUE: AP portable semiupright chest single view Date and time: May 21, 2025, 0457 hours, comparison May 20, 2025 INDICATIONS: Hypoxic respiratory failure, post intubation FINDINGS: Endotracheal tube tip 4.3 cm above joe. The film is rotated LPO No aspiration pneumonia Orogastric tube is in the stomach, the tip is below the level of the film IMPRESSION: Endotracheal tube tip 4.3 cm above joe No aspiration pneumonia
[2025-05-21 05:03] LABS: Eosinophils (Manual) 1 % (0-4); Hypochromasia 1+; Lymphocytes (Manual) 5 % (20-44); Metamyelocytes (Manual) 2 % (0-0); Monocytes (Manual) 2 % (2-9); Myelocytes (Manual) 2 % (0-0); Neutrophils (Manual) 85 % (50-70); Other Cell Type 3.0 %
[2025-05-21 05:23] LABS: Basophils # (Auto) 0.0 Thou/mm3 (0.0-0.2); Basophils % (Auto) 0 % (0-2.5); Eosinophils # (Auto) 0.0 Thou/mm3 (0.0-0.5); Eosinophils % (Auto) 0 % (0-10); Hematocrit 45.4 % (36.0-46.0); Hemoglobin 13.7 g/dL (12.0-16.0); Immature Granulocytes Auto 0.08 Thou/mm3 (0.00-0.00); Lymphocytes # (Auto) 1.0 Thou/mm3 (1.0-4.8); Lymphocytes % (Auto) 9 % (10-50); Mean Corpuscular HGB Conc 30.2 g/dl (31.0-37.0); Mean Corpuscular Hemoglobin 27.0 pg (25.0-35.0); Mean Corpuscular Volume 89 fL (80-100); Monocytes # (Auto) 0.8 Thou/mm3 (0.0-0.8); Monocytes % (Auto) 7 % (0-12); Neutrophils # (Auto) 9.5 Thou/mm3 (1.8-7.7); Neutrophils % (Auto) 84 % (37-80); Nucleated Red Blood Cell # 0.00 Thou/mm3 (0.00-0.00); Nucleated Red Blood Cell % 0 /100 WBC (0); Platelet Count 313 Thou/mm3 (140-440); RDW Standard Deviation 43.6 fL (36.4-46.3); Red Blood Count 5.08 Miln/mm3 (4.00-5.20); White Blood Count 11.3 Thou/mm3 (3.6-11.0)
[2025-05-21 05:50] LABS: INR 1.0 (0.9-1.3); Partial Thromboplastin Time 23.0 Seconds (22.0-36.0); Prothrombin Time 10.3 Seconds (9.0-12.2)
[2025-05-21 06:19] LABS: Alanine Aminotransferase 47 U/L (10-49); Albumin, Serum 4.6 gm/dL (3.4-4.8); Albumin/Globulin Ratio 2.1 (1.2-2.2); Alkaline Phosphatase 68 U/L (46-116); Anion Gap 9 (7-16); Aspartate Amino Transferase 26 U/L (0-34); BUN/Creatinine Ratio 33 Ratio (12-20); Bilirubin,Total 0.3 mg/dL (0.3-1.2); Blood Urea Nitrogen 30 mg/dL (9-23); Calcium 8.9 mg/dL (8.3-10.6); Calcium (Corrected) 8.9 mg/dL (8.5-10.1); Carbon Dioxide 33.3 mMol/L (20.0-31.0); Chloride 100 mMol/L (98-107); Creatinine (Component) 0.9 mg/dL (0.6-1.3); Estimated Creatinine Clearance 60.0 mL/min (>60); Globulin 2.2 gm/dL (2.3-3.5); Glucose 166 mg/dL (74-106); Magnesium 2.6 mg/dL (1.6-2.6); Osmolality,Calculated 293 (275-295); Phosphorous 4.5 mg/dL (2.4-5.1); Potassium 5.0 mMol/L (3.4-5.1); Sodium 142 mMol/L (136-145); Total Protein 6.8 gm/dL (5.7-8.2); Triglycerides 370 mg/dL (30-150); eGFR > 60 See Note
[2025-05-21] MEDS: DEXMEDETOMIDINE 400 MCG IVPB 400 MCG/100 ML BAG 25.544 MCG IV ×5 (07:10→22:51)
[2025-05-21] MEDS: HYDROmorphone INJ 2 MG/ML VIAL 0.5 MG IVP ×3 (07:58→20:18)
--- NOTE | 2025-05-21 08:00 | PC.NURSE ---
All assessments and charting done alexis samayoa has been verified and co signed by this rn
[2025-05-21] MEDS: ALBUMIN HUMAN-KJDA 25% IVPB 25 GM/100 ML BTL IV (08:03)
[2025-05-21] MEDS: HEPARIN SOD INJ 5000 UNIT/ML VIAL SC ×2 (08:04→20:01)
[2025-05-21] MEDS: guaiFENesin SYRUP 200 MG/10 ML UDC 100 MG GT (08:06)
[2025-05-21 08:07] LABS: Base Excess 8 (-3-3); HCO3 37 mEq/L (20-26); Inspired Oxygen, FIO2 40 %; O2 Saturation 97 % (91-98); PCO2 78 mmHg (32.0-48.0); PO2 94 mmHg (83-108); pH, Arterial 7.29 (7.35-7.45)
[2025-05-21] MEDS: NICOTINE PATCH 21 MG/24 HR PATCH.TD24 TOP (08:07)
[2025-05-21 08:08] LABS: Allen Test Performed/OK; Puncture Site Right Radial
[2025-05-21 08:41] LABS: Path Review Blood Smear Sent to Pathologist
--- NOTE | 2025-05-21 09:06 | PC.SS ---
SS follow up note; Patient is intubated and sedated. No pressor support. OG tube feedings in place. IV ABX.
[2025-05-21] MEDS: AZITHROMYCIN INJ 250 MG, Sterile Water 2.5 ML in SODIUM CHLORIDE 0.9% 250 ML 250 ML 252.5 MG IV (09:43)
[2025-05-21] MEDS: Magnesium Sulfate 2 GM Ivpb 2 GM/50 ML BAG IV ×2 (09:50→14:23)
[2025-05-21] MEDS: EPINEPHrine RT SOL 0.5 ML NEBU INH ×2 (09:54→13:21)
[2025-05-21] MEDS: BUDESONIDE RT 0.5 MG/2 ML NEBU 1 MG INH (09:54)
--- NOTE | 2025-05-21 12:20 | ESPR_ITS ---
<Statement entered by José Willis MD - 05/21/25 19:51> I have reviewed the note and agree with the resident's assessment & plan with exceptions as below. I have personally reviewed labs, imaging, home meds/prior records, examined the patient, formulated and discussed management plan with the IM team. Pt examined at bedside today. Overnight, patient failed SBT trial and was put back on propofol. SAT and SBT were retried later in the morning and pt was then extubated to biPAP on 15 and 5. Pt was given Mg 2gm IV infusion, Budenoside 1 mg, Racemic epi x1 with repeat ABG which revealed to have CO2 of ~80s. Pt continued to be on EPAP, however MV around ~10 but noncompliance with biPAP due to agitation occurred in which patient was given Ketamine 20 mg with addition magnesium infusion, and racemic epi. Pt contnued to have agitation and was transitioned to oxymask, however, continued to have breakthrough agitation and desaturated and was put back on biPAP. Pt's agitation improved, and then was given 10 mg Geodon IM, and Albuterol 15 mg. Earlier in the day, CODE STATUS was changed and family was spoken to in regards to possible comfort care if patient does not improve. Will continue with biPAP over night with as needed ketamine pushes to see if there is further improvement. Repeat VBG shows pH of 7.33 and PCO2 of 65. Repeat hematology and chemistry in AM. 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 #Respiratory Acidosis without adequate renal compensation #COPD exacerbation. #Elevated Transaminases #Cholelithiasis #Prediabetes #Leukocytosis- downtrending #Methamphetamine Use Disorder. #Chronic Smoker. José Willis, PGY-2 Internal Medicine Documentation for date of: 05/21/25 Subjective Subjective Interval history: Patient is a 60 years old female with PMH of COPD, chronic bronchitis, active smoker 1ppd for >40y, methamphetamine use initially presented to the ED on 05/17 for evaluation of worsening cough and SOB for two days. She was admitted and started on BiPAP, breathing treatment and IV steroids. Her condition has failed to improve and today she became agitated while on BiPAP, her ABG showed worsening acidosis with pH 7.22, severe hypercapnia with pCO2 91. Decision was made to upgrade patient to ICU and intubate. Family was contacted. 05/20/2025: patient was upgraded to the ICU, given intubation and severe hypercapnia and acidemia. Attempted spontaneous breathing trial this morning, but she was very agitated, unable to follow commands, and so sedation was reinitiated with prop, fent, and precedex. will reattempt to wean sedation and attempt SBT tomorrow. 05/21/2025: Patient seen and examined in the ICU. She was extubated in the AM and kept on bipap continuously with minimal breaks, repeat gas with worsening acidemia with co2 90, she continues to be extremely agitated, and has kicked several staff members despite being on soft point restraints wrists and has pulled off the bipap mask. she was given ziprazadone , ketamine, maxed out presedex drip and additional dilaudid for agitation however she continues to be agitated. She desaturates when off bipap and on oxymask which prompts us to place her back on bipap. There was concern that the bipap was not effective because of her agitation and fighting against the bipap. See event note for code status change from full to DNR/DNI. extensive discussion was had with surrogate decision maker, son, Rito Cannon: he is considering comfort measures. Exam Vital Signs Temp Pulse Resp BP Pulse Ox O2 Del Method O2 Flow Rate 98.9 F 77 14 144/92 H 98 Mechanical Ventilation 4 05/21/25 04:00 05/21/25 10:13 05/21/25 10:13 05/21/25 06:00 05/21/25 10:13 05/20/25 16:00 05/21/25 09:55 FiO2 45 05/21/25 10:13 Narrative Exam Gen: in intermittent distress. agitated intermittently and clawing and kicking providers. HEENT: NCAT, PERRLA, EOMI, MMM, anicteric conjunctivae. CVS: normal S1 and S2. Regular tachycardia. No M/R/G. Resp: on bipap. prolonged expiratory phase. and expiratory wheezing, poor air movment . breath sounds are tight. Abd: soft, non-tender, non-distended. BS+ in all 4 quadrants. : fuentes cath in place draining appropriately. MSK: Good ROM in BUE & BLE. No edema or rash. Neuro: moving all 4 extrem spontaneously., delerius, Objective Labs 05/22/25 04:07 05/22/25 04:07 Labs: Laboratory Results - last 24 hr 05/20/25 05/20/25 05/20/25 05:56 14:13 17:42 WBC 8.7 RBC 3.94 L Hgb 10.9 L D Hct 35.4 L D MCV 90 MCH 27.7 MCHC 30.8 L RDW Std Deviation 44.1 Plt Count 214 D Neut % (Auto) 81 H Lymph % (Auto) 10 Swisher % (Auto) 9 Eos % (Auto) 0 Baso % (Auto) 0 Neut # (Auto) 7.1 Lymph # (Auto) 0.9 L Swisher # (Auto) 0.8 Eos # (Auto) 0.0 Baso # (Auto) 0.0 Immature Gran # (Auto) 0.05 H Absolute Nucleated RBC 0.00 Immature Gran % 1 H Neutrophils % (Manual) 85 H Monocytes % (Manual) 2 Eosinophils % (Manual) 1 Metamyelocytes % 2 H Myelocytes % 2 H Nucleated RBC % 0 Lymphocytes (Manual) 5 L Other Cell Type 3.0 Hypochromasia 1+ Smear Path Review PT INR APTT Puncture Site Right Radial ABG pH 7.31 L ABG pCO2 71 H* ABG pO2 177 H D ABG HCO3 36 H ABG O2 Saturation 100 H ABG Base Excess 7 H FiO2 60 Sodium Cancelled Potassium Chloride Carbon Dioxide Anion Gap BUN Creatinine Estim Creat Clear Calc eGFR BUN/Creatinine Ratio Glucose Calculated Osmolality Lactic Acid Calcium Corrected Calcium Phosphorus Magnesium Total Bilirubin AST ALT Alkaline Phosphatase Troponin I Total Protein Albumin Globulin Albumin/Globulin Ratio Triglycerides 284 H Beta-Hydroxybutyrate/Acetoacetate 05/20/25 05/20/25 05/20/25 17:42 17:42 17:42 WBC RBC Hgb Hct MCV MCH MCHC RDW Std Deviation Plt Count Neut % (Auto) Lymph % (Auto) Swisher % (Auto) Eos % (Auto) Baso % (Auto) Neut # (Auto) Lymph # (Auto) Swisher # (Auto) Eos # (Auto) Baso # (Auto) Immature Gran # (Auto) Absolute Nucleated RBC Immature Gran % Neutrophils % (Manual) Monocytes % (Manual) Eosinophils % (Manual) Metamyelocytes % Myelocytes % Nucleated RBC % Lymphocytes (Manual) Other Cell Type Hypochromasia Smear Path Review PT INR APTT Puncture Site ABG pH ABG pCO2 ABG pO2 ABG HCO3 ABG O2 Saturation ABG Base Excess FiO2 Sodium 143 Potassium Cancelled 4.5 D Chloride Cancelled 96 L Carbon Dioxide Cancelled Anion Gap BUN Creatinine Estim Creat Clear Calc eGFR BUN/Creatinine Ratio Glucose Calculated Osmolality Lactic Acid Calcium Corrected Calcium Phosphorus Magnesium Total Bilirubin AST ALT Alkaline Phosphatase Troponin I Total Protein Albumin Globulin Albumin/Globulin Ratio Triglycerides Beta-Hydroxybutyrate/Acetoacetate 05/20/25 05/20/25 05/20/25 17:42 17:42 17:42 WBC RBC Hgb Hct MCV MCH MCHC RDW Std Deviation Plt Count Neut % (Auto) Lymph % (Auto) Swisher % (Auto) Eos % (Auto) Baso % (Auto) Neut # (Auto) Lymph # (Auto) Swisher # (Auto) Eos # (Auto) Baso # (Auto) Immature Gran # (Auto) Absolute Nucleated RBC Immature Gran % Neutrophils % (Manual) Monocytes % (Manual) Eosinophils % (Manual) Metamyelocytes % Myelocytes % Nucleated RBC % Lymphocytes (Manual) Other Cell Type Hypochromasia Smear Path Review PT INR APTT Puncture Site ABG pH ABG pCO2 ABG pO2 ABG HCO3 ABG O2 Saturation ABG Base Excess FiO2 Sodium Potassium Chloride Carbon Dioxide 29.4 Anion Gap Cancelled 18 H BUN Cancelled 28 H Creatinine Cancelled Estim Creat Clear Calc eGFR BUN/Creatinine Ratio Glucose Calculated Osmolality Lactic Acid Calcium Corrected Calcium Phosphorus Magnesium Total Bilirubin AST ALT Alkaline Phosphatase Troponin I Total Protein Albumin Globulin Albumin/Globulin Ratio Triglycerides Beta-Hydroxybutyrate/Acetoacetate 05/20/25 05/20/25 05/20/25 17:42 17:42 17:42 WBC RBC Hgb Hct MCV MCH MCHC RDW Std Deviation Plt Count Neut % (Auto) Lymph % (Auto) Swisher % (Auto) Eos % (Auto) Baso % (Auto) Neut # (Auto) Lymph # (Auto) Swisher # (Auto) Eos # (Auto) Baso # (Auto) Immature Gran # (Auto) Absolute Nucleated RBC Immature Gran % Neutrophils % (Manual) Monocytes % (Manual) Eosinophils % (Manual) Metamyelocytes % Myelocytes % Nucleated RBC % Lymphocytes (Manual) Other Cell Type Hypochromasia Smear Path Review PT INR APTT Puncture Site ABG pH ABG pCO2 ABG pO2 ABG HCO3 ABG O2 Saturation ABG Base Excess FiO2 Sodium Potassium Chloride Carbon Dioxide Anion Gap BUN Creatinine 1.1 Estim Creat Clear Calc Cancelled 49.1 L eGFR Cancelled 57 L BUN/Creatinine Ratio Cancelled Glucose Calculated Osmolality Lactic Acid Calcium Corrected Calcium Phosphorus Magnesium Total Bilirubin AST ALT Alkaline Phosphatase Troponin I Total Protein Albumin Globulin Albumin/Globulin Ratio Triglycerides Beta-Hydroxybutyrate/Acetoacetate 05/20/25 05/20/25 05/20/25 17:42 17:42 17:42 WBC RBC Hgb Hct MCV MCH MCHC RDW Std Deviation Plt Count Neut % (Auto) Lymph % (Auto) Swisher % (Auto) Eos % (Auto) Baso % (Auto) Neut # (Auto) Lymph # (Auto) Swisher # (Auto) Eos # (Auto) Baso # (Auto) Immature Gran # (Auto) Absolute Nucleated RBC Immature Gran % Neutrophils % (Manual) Monocytes % (Manual) Eosinophils % (Manual) Metamyelocytes % Myelocytes % Nucleated RBC % Lymphocytes (Manual) Other Cell Type Hypochromasia Smear Path Review PT INR APTT Puncture Site ABG pH ABG pCO2 ABG pO2 ABG HCO3 ABG O2 Saturation ABG Base Excess FiO2 Sodium Potassium Chloride Carbon Dioxide Anion Gap BUN Creatinine Estim Creat Clear Calc eGFR BUN/Creatinine Ratio 25 H Glucose Cancelled 112 H Calculated Osmolality Cancelled 291 Lactic Acid 1.7 Calcium Cancelled Corrected Calcium Phosphorus Magnesium Total Bilirubin AST ALT Alkaline Phosphatase Troponin I Total Protein Albumin Globulin Albumin/Globulin Ratio Triglycerides Beta-Hydroxybutyrate/Acetoacetate 05/20/25 05/20/25 05/20/25 17:42 17:42 17:42 WBC RBC Hgb Hct MCV MCH MCHC RDW Std Deviation Plt Count Neut % (Auto) Lymph % (Auto) Swisher % (Auto) Eos % (Auto) Baso % (Auto) Neut # (Auto) Lymph # (Auto) Swisher # (Auto) Eos # (Auto) Baso # (Auto) Immature Gran # (Auto) Absolute Nucleated RBC Immature Gran % Neutrophils % (Manual) Monocytes % (Manual) Eosinophils % (Manual) Metamyelocytes % Myelocytes % Nucleated RBC % Lymphocytes (Manual) Other Cell Type Hypochromasia Smear Path Review PT INR APTT Puncture Site ABG pH ABG pCO2 ABG pO2 ABG HCO3 ABG O2 Saturation ABG Base Excess FiO2 Sodium Potassium Chloride Carbon Dioxide Anion Gap BUN Creatinine Estim Creat Clear Calc eGFR BUN/Creatinine Ratio Glucose Calculated Osmolality Lactic Acid Calcium 7.2 L D Corrected Calcium Cancelled 7.2 L D Phosphorus Cancelled 4.2 Magnesium 2.2 Total Bilirubin 0.2 L AST 15 ALT 31 Alkaline Phosphatase 49 D Troponin I < 0.020 Total Protein 10.1 H Albumin Cancelled Globulin Albumin/Globulin Ratio Triglycerides Beta-Hydroxybutyrate/Acetoacetate 05/20/25 05/20/25 05/20/25 17:42 19:07 19:25 WBC 10.0 RBC 4.84 Hgb 12.9 D Hct 43.5 MCV 90 MCH 26.7 MCHC 29.7 L RDW Std Deviation 44.1 Plt Count 245 D Neut % (Auto) 81 H Lymph % (Auto) 10 Swisher % (Auto) 9 Eos % (Auto) 0 Baso % (Auto) 0 Neut # (Auto) 8.1 H Lymph # (Auto) 1.0 Swisher # (Auto) 0.9 H Eos # (Auto) 0.0 Baso # (Auto) 0.0 Immature Gran # (Auto) 0.06 H Absolute Nucleated RBC 0.00 Immature Gran % 1 H Neutrophils % (Manual) Monocytes % (Manual) Eosinophils % (Manual) Metamyelocytes % Myelocytes % Nucleated RBC % 0 Lymphocytes (Manual) Other Cell Type Hypochromasia Smear Path Review PT INR APTT Puncture Site Right Radial ABG pH 7.24 L ABG pCO2 87 H* D ABG pO2 36 L* D ABG HCO3 37 H ABG O2 Saturation 62 L ABG Base Excess 7 H FiO2 50 Sodium Potassium Chloride Carbon Dioxide Anion Gap BUN Creatinine Estim Creat Clear Calc eGFR BUN/Creatinine Ratio Glucose Calculated Osmolality Lactic Acid Calcium Corrected Calcium Phosphorus Magnesium Total Bilirubin AST ALT Alkaline Phosphatase Troponin I Total Protein Albumin 7.2 H D Globulin 2.9 Albumin/Globulin Ratio 2.5 H Triglycerides Beta-Hydroxybutyrate/Acetoacetate 05/20/25 05/20/25 05/21/25 20:01 20:47 04:37 WBC 11.3 H RBC 5.08 Hgb 13.7 Hct 45.4 MCV 89 MCH 27.0 MCHC 30.2 L RDW Std Deviation 43.6 Plt Count 313 D Neut % (Auto) 84 H Lymph % (Auto) 9 L Swisher % (Auto) 7 Eos % (Auto) 0 Baso % (Auto) 0 Neut # (Auto) 9.5 H Lymph # (Auto) 1.0 Swisher # (Auto) 0.8 Eos # (Auto) 0.0 Baso # (Auto) 0.0 Immature Gran # (Auto) 0.08 H Absolute Nucleated RBC 0.00 Immature Gran % 1 H Neutrophils % (Manual) Monocytes % (Manual) Eosinophils % (Manual) Metamyelocytes % Myelocytes % Nucleated RBC % 0 Lymphocytes (Manual) Other Cell Type Hypochromasia Smear Path Review Sent to Pathologist PT 10.3 INR 1.0 APTT 23.0 Puncture Site Left Radial ABG pH 7.28 L ABG pCO2 77 H* D ABG pO2 159 H D ABG HCO3 36 H ABG O2 Saturation 100 H ABG Base Excess 7 H FiO2 50 Sodium 142 Potassium 5.0 D Chloride 100 Carbon Dioxide 33.3 H Anion Gap 9 BUN 30 H Creatinine 0.9 Estim Creat Clear Calc 60.0 L eGFR > 60 BUN/Creatinine Ratio 33 H Glucose 166 H D Calculated Osmolality 293 Lactic Acid 1.9 Calcium 8.9 D Corrected Calcium 8.9 D Phosphorus 4.5 Magnesium 2.6 Total Bilirubin 0.3 AST 26 ALT 47 Alkaline Phosphatase 68 D Troponin I Total Protein 6.8 Albumin 4.6 D Globulin 2.2 L Albumin/Globulin Ratio 2.1 Triglycerides 370 H Beta-Hydroxybutyrate/Acetoacetate 0.1 05/21/25 08:00 WBC RBC Hgb Hct MCV MCH MCHC RDW Std Deviation Plt Count Neut % (Auto) Lymph % (Auto) Swisher % (Auto) Eos % (Auto) Baso % (Auto) Neut # (Auto) Lymph # (Auto) Swisher # (Auto) Eos # (Auto) Baso # (Auto) Immature Gran # (Auto) Absolute Nucleated RBC Immature Gran % Neutrophils % (Manual) Monocytes % (Manual) Eosinophils % (Manual) Metamyelocytes % Myelocytes % Nucleated RBC % Lymphocytes (Manual) Other Cell Type Hypochromasia Smear Path Review PT INR APTT Puncture Site Right Radial ABG pH 7.29 L ABG pCO2 78 H* ABG pO2 94 D ABG HCO3 37 H ABG O2 Saturation 97 ABG Base Excess 8 H FiO2 40 Sodium Potassium Chloride Carbon Dioxide Anion Gap BUN Creatinine Estim Creat Clear Calc eGFR BUN/Creatinine Ratio Glucose Calculated Osmolality Lactic Acid Calcium Corrected Calcium Phosphorus Magnesium Total Bilirubin AST ALT Alkaline Phosphatase Troponin I Total Protein Albumin Globulin Albumin/Globulin Ratio Triglycerides Beta-Hydroxybutyrate/Acetoacetate ABG Interpretation ABG results: 05/17/25 05/18/25 05/18/25 18:19 09:28 15:37 ABG pH 7.39 7.32 L 7.34 L ABG pCO2 49 H 58 H 59 H ABG pO2 149 H 82 L D 111 H D ABG HCO3 29 H 30 H 31 H ABG O2 Saturation 100 H 96 99 H ABG Base Excess 3 2 4 H 05/18/25 05/18/25 05/19/25 21:14 23:52 02:35 ABG pH 7.27 L 7.28 L 7.33 L ABG pCO2 68 H 68 H 62 H ABG pO2 77 L D 83 79 L ABG HCO3 32 H 32 H 32 H ABG O2 Saturation 95 96 95 ABG Base Excess 2 3 4 H 05/19/25 05/19/25 05/20/25 13:35 15:50 04:06 ABG pH 7.20 L D 7.29 L 7.22 L ABG pCO2 85 H* D 69 H D 91 H* D ABG pO2 95 75 L D 129 H D ABG HCO3 33 H 33 H 38 H ABG O2 Saturation 97 95 97 ABG Base Excess 2 4 H 6 H 05/20/25 05/20/25 05/20/25 06:07 14:13 19:25 ABG pH 7.34 L D 7.31 L 7.24 L ABG pCO2 66 H D 71 H* 87 H* D ABG pO2 285 H D 177 H D 36 L* D ABG HCO3 36 H 36 H 37 H ABG O2 Saturation 100 H 100 H 62 L ABG Base Excess 7 H 7 H 7 H 05/20/25 05/21/25 20:01 08:00 ABG pH 7.28 L 7.29 L ABG pCO2 77 H* D 78 H* ABG pO2 159 H D 94 D ABG HCO3 36 H 37 H ABG O2 Saturation 100 H 97 ABG Base Excess 7 H 8 H Quality Measures Quality Measures VTE prophylaxis Assessment & Plan Assessment Current Active Medications: Generic Name Dose Route Start Last Admin Trade Name Freq PRN Reason Stop Dose Admin Acetaminophen 650 mg 05/17/25 18:00 05/17/25 18:55 Acetaminophen 325 Mg Tablet PO 06/16/25 17:59 650 mg Q6H PRN Administration Fever >100 Acetaminophen 650 mg 05/17/25 18:00 Acetaminophen 325 Mg Tablet PO 06/16/25 17:59 Q6H PRN PAIN SCALE 1-3 (mild Hydrocodone Bitart/Acetaminophen 1 tab 05/17/25 18:00 Hydrocodone/Apap 5/325 Tablet PO 05/22/25 17:59 Q4HR PRN PAIN SCALE 4-6 (Moderate Albuterol/Ipratropium 3 ml 05/17/25 19:00 05/21/25 06:04 Albuterol/Ipratropium (Duoneb) Rt Breanna 3 Ml Nebu INH 06/16/25 18:59 3 ml Q4HRRT ANNA Administration Albuterol/Ipratropium 3 ml 05/17/25 18:13 05/18/25 19:10 Albuterol/Ipratropium (Duoneb) Rt Breanna 3 Ml Nebu INH 06/16/25 18:12 3 ml Q2HR PRN Administration SHORTNESS OF BREATH OR WHEEZE Atorvastatin Calcium 40 mg 05/20/25 08:29 05/20/25 21:48 Atorvastatin Calcium 20 Mg Tablet GT 06/17/25 20:59 40 mg HS ANNA Administration Budesonide 0.5 mg 05/21/25 19:00 Budesonide Rt 0.5 Mg/2 Ml Nebu INH 06/20/25 18:59 BIDRT ANNA Dextrose 50 ml 05/18/25 12:51 Dextrose 50%-Water Inj 50 Ml Syringe IV 06/17/25 12:50 Q15MIN PRN BG <50 OR BG <70 & pt unresponsive Glucagon 1 mg 05/18/25 12:51 Glucagon Inj 1 Mg Vial IM Q15MIN PRN BG <70, and no IV access Heparin Sodium (Porcine) 5,000 unit 05/17/25 18:15 05/21/25 08:04 Heparin Sod Inj 5000 Unit/Ml Vial SC 05/31/25 18:14 5,000 unit Q12HR ANNA Administration Hydromorphone HCl 0.5 mg 05/21/25 11:10 05/21/25 11:25 Hydromorphone Inj 2 Mg/Ml Vial IVP 05/25/25 11:11 0.5 mg Q3HR PRN Administration AGITATION Azithromycin 250 mg/ Sterile 252.5 mls @ 252.5 mls/hr 05/21/25 09:00 05/21/25 09:43 Water 2.5 ml/ Sodium Chloride IV 05/24/25 08:59 252.5 mls/hr QDAY ANNA Administration Dexmedetomidine/Sodium Chloride 400 mcg in 100 mls @ 3.649 mls/hr 05/20/25 09:45 05/21/25 11:16 Precedex Ivpb IV 06/19/25 09:44 1.4 mcg/kg/hr .Q24H PRN 25.544 mls/hr Per PROTOCOL Administration Protocol 0.2 MCG/KG/HR Albumin Human 25 gm in 100 mls @ 100 mls/hr 05/20/25 16:50 05/21/25 08:03 Albuminex 25% Ivpb IV 05/23/25 16:49 100 mls/hr QDAY ANNA Administration Insulin Human Lispro 0 unit 05/19/25 18:00 05/21/25 05:56 Insulin Lispro (Admelog) 1 Unit/0.01 Ml Unit SC 06/18/25 17:59 Not Given Q6HR ANNA Protocol Methylprednisolone Sodium Succinate 40 mg 05/19/25 14:00 05/21/25 05:57 Methylprednisolone Sod Succ 40 Mg/Ml Vial IVP 05/26/25 13:59 40 mg TID ANNA Administration Nicotine 21 mg 05/17/25 17:45 05/21/25 08:07 Nicotine Patch 21 Mg/24 Hr Patch.Td24 TOP 06/16/25 17:44 21 mg QDAY ANNA Administration Ondansetron HCl 4 mg 05/17/25 18:00 Ondansetron Inj 2 Mg/Ml Inj 2 Ml IVP 06/16/25 17:59 Q6H PRN NAUSEA OR VOMITING Protocol Pantoprazole Sodium 40 mg 05/18/25 09:00 05/21/25 08:05 Pantoprazole Inj 40 Mg Vial IVP 06/17/25 08:59 40 mg QDAY ANNA Administration Sodium Chloride 3 ml 05/21/25 09:42 Sodium Chloride Rt Breanna 0.9% 3 Ml Nebu INH 06/20/25 09:41 PRN PRN SOLN Plan Ms. Nydia Cannon is a 60 years old woman with PMH of COPD, chronic bronchitis, active smoker 1ppd for >40y, methamphetamine use initially presented to the ED on 05/17 for evaluation of worsening cough and SOB for two days. She was admitted and started on BiPAP, breathing treatment and IV steroids. Her condition has failed to improve and today she became agitated while on BiPAP, her ABG showed worsening acidosis with pH 7.22, severe hypercapnia with pCO2 91. Decision was made to upgrade patient to ICU and intubate. 05/21, patient was extubated. and transitioned bipap intermittently. Neuro: Agitation - precedex drip, ketamine 20 mg ivp prn, dilaudid 0.4 q3 prn, and ziprazidone 10mg prn. 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 #Respiratory Acidosis #COPD exacerbation. Patient presented with 2d hx of worsening cough and SOB. Also admits to greenish phlegm with coughing worse at nights. In ED, patient received methylprednisolone 250mg x1, ipratropium 1.5mg inh, On admission: ABG: pH 7.39, pCO2 49, pO2 149, bicarb 29, O2 sat 100%. CXR: no interval pneumonia or pulmonary edema. EKG: sinus tachycardia. Negative COVID 19, influenza A & B. Antibiotics were discontinued by primary team no infective source, Azithromycin 500mg for three days (05/18-). On ICU admission: ABG pH 7.22, pCO2 91, PaO2 129, which shows worsened CO2 retention compared to admission and prior day. she is intubated and sedated. 05/20 1400 Abg 7.31 and pco2 71. 05/21- extubated and on bipap 1400 Abg 7.24, co2 90, pending follow up vbg and renal panel. Gastrointestinal: #Hepatitis, resolved #cholelithiasis -hepatitis panel nonreactive. Nutrition - holding nutrition while on bipap, NPO Renal: No active problem. Endocrine: #Prediabetes. Hgb A1c 6.2 BG 130-150 Plan: -Insulin lispro SS. Infectious Disease: No active problem. Hematology/Oncology: #Leukocytosis- downtrending Likely due to IV steroids, will monitor. Other: #Methamphetamine Use Disorder. #Chronic Smoker. Patient reports to have smoked 1 PPD >40y. Also reports daily methamphetamine use. Plan: -Nicotine patch 21mg. -Referral to transition social worker. Diet: NPO. Lines: Peripheral x2. Tubes: Fuentes catheter DVT prophylaxis: Heparin SC Q12H. GI prophylaxis: Protonix. Code status: DNR DNI Disposition: upgraded to ICU. Case disclosed with my senior resident Dr. Willis and my Attending Dr. Elli Pickens MD PGY1 Attending Provider Attestation/Addendum Patient seen and examined with above resident, Ashley Pickens MD. I agree with the findings, assessment, and plan of care as document except for any differences below. Patient underwent spontaneous breathing trial and was able to follow commands with ability to extubate directly to BiPAP. Patient continued to have increased work of breathing and struggled due to severe fixed obstruction. Partial response to the albuterol but most really required adequate sedation with use of Precedex and intermittent dosing of antipsychotics as well. We will try to avoid benzodiazepines at this point as this would likely decrease further respiratory drive. Intermittent breaks as tolerated with transition to nasal cannula if able. Patient's mentation and given use of sedatives remains very limited and she is unable to participate in this is making of her own care. Patient's family has been updated on the severity of her progressive/near end-stage pulmonary disease. Fortunately likely exacerbated by exposure to viral illness from family member. However, family has relayed patient's advanced disease based on description of her day-to-day quality of life being very poor. Fortunately patient also has significant methamphetamine use which also likely contributes to the acute worsening though intermittently it may make her feel better given his sympathetic mechanism of action. Total critical care time: I personally spent 60 minutes for review of physiologic parameters, directing plan of care throughout the day, and extensive counseling patient and family at bedside. This is exclusive of time spent teaching on staff or performing separate billable procedures. Patient remains at significant risk for further morbidity and mortality warranting close monitoring and care only available in the ICU. Critical care services required for acute on chronic hypercapnic respiratory failure, acute encephalopathy, COPD with acute exacerbation, methamphetamine use disorder, tobacco abuse.
--- NOTE | 2025-05-21 13:40 | RESP.EEG ---
EEG ORDERED, PT ON BIPAP AND UNABLE TO BE REMOVED. DR WISEMAN MADE AWARE
[2025-05-21] MEDS: HYDROmorphone INJ 2 MG/ML VIAL 1 MG IVP (13:51)
[2025-05-21 14:03] LABS: Base Excess 7 (-3-3); HCO3 38 mEq/L (20-26); Inspired Oxygen, FIO2 60 %; O2 Saturation 92 % (91-98); PCO2 90 mmHg (32.0-48.0); PO2 70 mmHg (83-108); pH, Arterial 7.24 (7.35-7.45)
[2025-05-21 14:04] LABS: Allen Test Performed/OK; Puncture Site Right Radial
--- NOTE | 2025-05-21 14:53 | PD.RESEVENT ---
Documentation for date of: 05/21/25 Event Note Event Note: Spoke with patient's son, Rito Cannon (surrogate decision maker for patient), who would like to pursue with DNR code status. He understands that the patient will not be resuscitated, including endotracheal intubation in the event patient were to code. José Willis, PGY-2 Internal Medicine
[2025-05-21] MEDS: KETAMINE 50 MG/ML VIAL 10 ML 20 MG IVP ×2 (15:07→20:01)
[2025-05-21] MEDS: ZIPRASIDONE INJ 20 MG/ML VIAL (NON-FORMULARY) 10 MG IM (16:56)
[2025-05-21] MEDS: ALBUTEROL RT 2.5 MG/0.5 ML NEBU 15 MG INH (17:08)
[2025-05-21 18:01] LABS: Base Excess, Venous 7 (-3-3); O2 Saturation, Venous 100 % (96-97); PCO2, Venous 65 mmHg (36-56); PO2, Venous 169 mmHg (15-58); pH, Venous 7.34 (7.33-7.66)
[2025-05-21 18:21] LABS: Albumin, Serum 4.6 gm/dL (3.4-4.8); Anion Gap 9 (7-16); BUN/Creatinine Ratio 28 Ratio (12-20); Blood Urea Nitrogen 22 mg/dL (9-23); Calcium 8.5 mg/dL (8.3-10.6); Calcium (Corrected) 8.5 mg/dL (8.5-10.1); Carbon Dioxide 34.0 mMol/L (20.0-31.0); Chloride 101 mMol/L (98-107); Creatinine (Component) 0.8 mg/dL (0.6-1.3); Estimated Creatinine Clearance 70.1 mL/min (>60); Glucose 147 mg/dL (74-106); Osmolality,Calculated 293 (275-295); Phosphorous 4.2 mg/dL (2.4-5.1); Potassium 5.4 mMol/L (3.4-5.1); Sodium 144 mMol/L (136-145); eGFR > 60 See Note
[2025-05-21] MEDS: BUDESONIDE RT 0.5 MG/2 ML NEBU INH (18:28)
[2025-05-21] MEDS: OLANZapine INJ 5 MG, Sterile Water 2.1 ML IM (22:51)
[2025-05-22] VITALS (19 sets, daily range): BP systolic 119–212; BP diastolic 74–109; PULSE 61–109; RESP 14–33; TEMP 36.2; O2SAT 90–100; BMI 30.2
[2025-05-22] MEDS: OLANZapine INJ 5 MG, Sterile Water 2.1 ML IM (01:10)
[2025-05-22] MEDS: DEXMEDETOMIDINE 400 MCG IVPB 400 MCG/100 ML BAG 25.544 MCG IV ×2 (02:11→05:30)
[2025-05-22] MEDS: PHENobarbital Inj 130 MG, SODIUM CHLORIDE 0.9% FLUSH 12 ML IVP ×2 (03:54→11:00)
[2025-05-22 05:32] LABS: Basophils # (Auto) 0.0 Thou/mm3 (0.0-0.2); Basophils % (Auto) 0 % (0-2.5); Eosinophils # (Auto) 0.0 Thou/mm3 (0.0-0.5); Eosinophils % (Auto) 0 % (0-10); Hematocrit 42.3 % (36.0-46.0); Hemoglobin 13.0 g/dL (12.0-16.0); Immature Granulocytes Auto 0.05 Thou/mm3 (0.00-0.00); Lymphocytes # (Auto) 0.7 Thou/mm3 (1.0-4.8); Lymphocytes % (Auto) 10 % (10-50); Mean Corpuscular HGB Conc 30.7 g/dl (31.0-37.0); Mean Corpuscular Hemoglobin 27.3 pg (25.0-35.0); Mean Corpuscular Volume 89 fL (80-100); Monocytes # (Auto) 0.5 Thou/mm3 (0.0-0.8); Monocytes % (Auto) 7 % (0-12); Neutrophils # (Auto) 6.0 Thou/mm3 (1.8-7.7); Neutrophils % (Auto) 82 % (37-80); Nucleated Red Blood Cell # 0.00 Thou/mm3 (0.00-0.00); Nucleated Red Blood Cell % 0 /100 WBC (0); Platelet Count 216 Thou/mm3 (140-440); RDW Standard Deviation 42.5 fL (36.4-46.3); Red Blood Count 4.76 Miln/mm3 (4.00-5.20); White Blood Count 7.3 Thou/mm3 (3.6-11.0)
[2025-05-22 05:53] LABS: INR 1.0 (0.9-1.3); Partial Thromboplastin Time 20.8 Seconds (22.0-36.0); Prothrombin Time 10.8 Seconds (9.0-12.2)
[2025-05-22 06:03] LABS: Alanine Aminotransferase 41 U/L (10-49); Albumin, Serum 4.4 gm/dL (3.4-4.8); Albumin/Globulin Ratio 2.2 (1.2-2.2); Alkaline Phosphatase 55 U/L (46-116); Anion Gap 9 (7-16); Aspartate Amino Transferase 26 U/L (0-34); BUN/Creatinine Ratio 31 Ratio (12-20); Bilirubin,Total 0.5 mg/dL (0.3-1.2); Blood Urea Nitrogen 25 mg/dL (9-23); Calcium 8.7 mg/dL (8.3-10.6); Calcium (Corrected) 8.7 mg/dL (8.5-10.1); Carbon Dioxide 36.0 mMol/L (20.0-31.0); Chloride 100 mMol/L (98-107); Creatinine (Component) 0.8 mg/dL (0.6-1.3); Estimated Creatinine Clearance 70.1 mL/min (>60); Globulin 2.0 gm/dL (2.3-3.5); Glucose 143 mg/dL (74-106); Magnesium 2.9 mg/dL (1.6-2.6); Osmolality,Calculated 295 (275-295); Phosphorous 3.6 mg/dL (2.4-5.1); Potassium 5.2 mMol/L (3.4-5.1); Sodium 145 mMol/L (136-145); Total Protein 6.4 gm/dL (5.7-8.2); eGFR > 60 See Note
[2025-05-22 06:34] LABS: Base Excess -4 (-3-3); HCO3 24 mEq/L (20-26); O2 Saturation 95 % (91-98); PCO2 56 mmHg (32.0-48.0); PO2 75 mmHg (83-108); pH, Arterial 7.23 (7.35-7.45)
[2025-05-22 06:35] LABS: Allen Test Performed/OK; Inspired Oxygen, FIO2 30 %; Puncture Site Site Not Noted
[2025-05-22] MEDS: BUDESONIDE RT 0.5 MG/2 ML NEBU INH (06:40)
[2025-05-22] MEDS: ALBUTEROL/IPRATROPIUM (Duoneb) RT SOL 3 ML NEBU INH ×2 (06:40→09:01)
[2025-05-22] MEDS: KETAMINE 50 MG/ML VIAL 10 ML 20 MG IVP (07:16)
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
[2025-05-22] MEDS: NICOTINE PATCH 21 MG/24 HR PATCH.TD24 TOP (08:54)
[2025-05-22] MEDS: HEPARIN SOD INJ 5000 UNIT/ML VIAL SC (08:55)
[2025-05-22] MEDS: EPINEPHrine RT SOL 0.5 ML NEBU INH (09:01)
[2025-05-22] MEDS: ZIPRASIDONE INJ 20 MG/ML VIAL (NON-FORMULARY) 10 MG IM (09:07)
[2025-05-22] MEDS: DORNASE ALFA 1 MG/ML 2.5 MG INH (09:23)
[2025-05-22] MEDS: HALOPERIDOL LACT INJ 5 MG/ML VIAL IV (09:30)
[2025-05-22] MEDS: DEXMEDETOMIDINE 400 MCG IVPB 400 MCG/100 ML BAG 23.719 MCG IV (09:41)
[2025-05-22] MEDS: AZITHROMYCIN INJ 250 MG, Sterile Water 2.5 ML in SODIUM CHLORIDE 0.9% 250 ML 250 ML 252.5 MG IV (10:05)
[2025-05-22] MEDS: ALBUTEROL RT 2.5 MG/3 ML NEBU 10 MG INH (10:43)
[2025-05-22] MEDS: Magnesium Sulfate 2 GM Ivpb 2 GM/50 ML BAG IV (10:58)
[2025-05-22 11:08] LABS: Syphilis Nonreactive (Nonreactive)
[2025-05-22 11:48] LABS: Vitamin B12 334 pg/mL (211-911)
[2025-05-22] MEDS: MORPHINE SULF INJ 4 MG/ML VIAL IVP ×2 (12:32→13:50)
[2025-05-22] MEDS: MIDAZOLAM INJ 1 MG/ML VIAL 2 ML 2 MG IVP (12:32)
[2025-05-22] MEDS: Morphine IV Drip 100mg/100ml 100 ML IV (13:08)
--- NOTE | 2025-05-22 13:26 | PD.RESEVENT ---
Documentation for date of: 05/22/25 Event Note Event Note: Spoke with family, including son, Rito, who is surrogate decision maker, who would like to proceed comfort care for the patient. Morphine drip and comfort measures were initiated for the patient. Patient seen and care discussed with my attending physician, Dr. Elli Willis, PGY-2 This document was transcribed using voice recognition technology. Minor inaccuracies may be present.
[2025-05-22] MEDS: MIDAZOLAM INJ 1 MG/ML VIAL 2 ML 4 MG IVP (13:52)
[2025-05-22] MEDS: fentaNYL CIT INJ 50 mCg/ML AMP 2ML IVP (13:52)
--- NOTE | 2025-05-22 14:41 | PC.SS ---
Update: SECOND FACING BASTER informed by bedside nurse that patient has been transitioned to comfort care.
--- NOTE | 2025-05-22 14:44 | PD.DPN ---
Documentation for date of: 05/22/25 Pronouncement Note Date and Time of Date of : 05/22/25 Time of : 14:43 PCOD Preliminary cause of : Cardiorespiratory failure Summary Additional details: Patient was placed on comfort measures today, Physician called to bedside at 1440 to pronounce . Patient was DNR/DNI, no pulses palpable, no breath sounds, no heart sounds, and pupils fixed and dilated. at 1443. Case disclosed with my Attending Dr. Elli Pickens MD PGY1 Additional Data Confirmation of : no pulse, no respirations, no heart sounds and pupils fixed and dilated Family: at bedside Attending/PCP notified?: Yes Attending physician: Bran Calloway MD Was code activated?: No Autopsy requested?: No forensic document examiner notified?: Yes Organ bank notified?: Yes Advance directives: No
--- NOTE | 2025-05-22 14:51 | DES_ITS ---
<Statement entered by Bran Calloway MD - 05/25/25 04:40> Attending attestation: Patient seen and examined with the above resident, Ashley Pickens MD. I agree with the findings, assessment, and plan of care as document except for any differences below. Patient admitted with COPD exacerbation. However patient continues to have significant inability to be adequately been weaned from noninvasive positive pressure ventilation. She has been successfully transition off of mechanical ventilation with use of Precedex. Extensive regimen for control of agitation and anxiety. However this is all related to end-stage COPD as per report from patient's family she at baseline continues to have significant work of breathing which we are unable to adequately control. Given the patient's significant suffering, patient's family has elected to transition to comfort measures only. She was weaned from NIPPV with initiation of morphine drip and intermittent boluses of Versed and morphine/fentanyl to ensure adequate control of dyspnea and anxiety associated with end-of-life. Patient was surrounded by family at the time of her demise. Condolences given. I was present at the time of pronouncement of the patient. Total critical care time: I personally spent 60 minutes for review of physiologic parameters, directing plan of care throughout the day, extensive counseling the patient's family including goals of care discussion/end-of-life care. This is exclusive of time spent teaching on staff performing separate billable procedures. Patient remains at significant risk for further morbidity and mortality eventually leading to demise. Critical care services required for acute on chronic hypercapnic respiratory failure, COPD with acute exacerbation, acute metabolic encephalopathy. Documentation for date of: 05/22/25 Summary Date and Time Date of admission: 05/17/25 17:40 Summary Hospital Course: 60 years old female with PMH of COPD, chronic bronchitis, active smoker 1ppd for >40y, methamphetamine use initially presented to the ED on 05/17 for evaluation of worsening cough and SOB for two days. She was admitted and started on BiPAP, breathing treatment and IV steroids. Her condition has failed to improve and today she became agitated while on BiPAP, her ABG showed worsening acidosis with pH 7.22, severe hypercapnia with pCO2 91. Surrogate decision maker was contacted who decided to change dnr/dni status to full code, and pursue intubation. She was weaned off sedation the following day to attempt extubation but failed due t o high level of agitation and inability to follow commands, after 2 days of being mech ventillated, she was successfully extubated, but required bipap around the clock, she remained extremely agitated and was not engaging well with the bipap. subsequent family discussion resulted with a change of code status to dnr/dnr. she remained on max dose presedex drip and required additional medications to calm her adequately in order for her to successfully participate with the bipap. her pco2 corrected to her baseline, but her acidosis persisted. icu team considered initiating ketamine drip given minimal effect of the presedex however pharmacy informed that we are unable to do protocol for ketamine for pain and agitation in a patient who is not intubated. Patients surrogate decision maker was contacted and given her lack of improvement in her clinical status, he decided to initiate comfort care measures. Physician called to bedside at 1440 to pronounce . Patient was DNR/DNI, no pulses palpable, no breath sounds, no heart sounds, and pupils fixed and dilated. at 1443. Case disclosed with my my Attending Dr. Elli Pickens MD PGY1 Additional Data Confirmation of as documented by pronouncing clinician: no pulse, no respirations, no heart sounds and pupils fixed and dilated Family: at bedside Attending/PCP notified?: Yes Attending physician: Bran Calloway MD Was code activated?: No Autopsy requested?: No passport application examiner notified?: No Organ bank notified?: Yes Advance directives: No Hospice patient?: No Visit Providers Provider Primary care physician: Physician No Primary/Family Consults: 05/17/25 16:09 Referral Respiratory Therapy Stat Comment: BiPAP 05/17/25 21:59 Health Equity Referral - Knowledge Deficit Routine Comment: Positive screening for knowledge deficit needs. 05/19/25 14:06 Consult to Pulmonology Stat Comment: On BiPap, retaining CO2 Consulting Provider: Bran Calloway I 05/20/25 07:07 Consult to Health Consultant Routine Comment: Consulting Provider: Bran Calloway I 05/20/25 11:24 Referral Registered Dietitian Routine Comment: recs for tube feeds please Discharge Plan Plan Patient Disposition: Prescriptions/Referrals Referrals: No Primary/Family,Physician [Primary Care Provider] Patient/Caregiver Discharge Instructions Print Language: Bahraini
== END 2025-05-22 14:43 | disposition expired | DRG 140 ==
LOC: SERX 17:09 → SERHOLD 18:18 → S3NX 20:14 → S2SX 05-20 05:08
PROVIDERS: Internal Medicine; Student in an Organized Health Care Education/Training Program; Admitting Provider Student in an Organized Health Care Education/Training Program; Emergency Provider Emergency Medicine; Visit Provider Student in an Organized Health Care Education/Training Program
DX: J44.1 Chronic obstructive pulmonary disease with (acute) exacerbation (principal); R74.01 Elevation of levels of liver transaminase levels; R73.03 Prediabetes; F17.210 Nicotine dependence, cigarettes, uncomplicated; Z51.5 Encounter for palliative care; Z66 Do not resuscitate; F41.9 Anxiety disorder, unspecified; F15.10 Other stimulant abuse, uncomplicated; G93.41 Metabolic encephalopathy; J96.21 Acute and chronic respiratory failure with hypoxia; J96.22 Acute and chronic respiratory failure with hypercapnia; I11.0 Hypertensive heart disease with heart failure; K75.9 Inflammatory liver disease, unspecified; I50.30 Unspecified diastolic (congestive) heart failure; K80.20 Calculus of gallbladder without cholecystitis without obstruction; Z78.1 Physical restraint status; Z91.199 Patient's noncompliance with other medical treatment and regimen due to unspecified reason; E87.29 Other acidosis; Z88.5 Allergy status to narcotic agent
CPT/HCPCS: 36415; 36600; 51701; 71045; 76705; 80053; 80061; 80069; 80074; 80307; 81001; 82010; 82248; 82607; 82803; 83036; 83605; 83735; 83880; 84100; 84145; 84443; 84478; 84484; 85025; 85379; 85610; 85652; 85730; 86140; 86780; 87040; 87081; 87106; 87205; 87502; 87634; 87635; 93005; 93225; 93306; 94002; 94640; 94644; 94645; 94660; 96374; 96375; 99284; A4216; A9270; J0456; J0613; J0692; J0696; J1171; J1200; J1630; J1644; J2060; J2250; J2270; J2358; J2470; J2560; J2704; J2919; J3010; J3374; J3475; J3486; J3490; J7050; J7120; J7612; J7639; J7644; J7999; P9047; J2359; J7611